=== PATIENT | male | born 1985 | race Caucasian/White ===

== ENCOUNTER 2021-06-14 07:44 | Emergency (ER) | payer MEDICAID, SELFPAY ==
[2021-06-14 07:49] VITALS: BP 96/56; PULSE 83; RESP 16; TEMP 36.3; O2SAT 95; BMI 21.7
--- NOTE | 2021-06-14 08:22 | ED_ITS ---
HPI - Alcohol General Chief Complaint: Psychiatric Symptoms Stated Complaint: seeking detox Time Seen by Provider: 06/14/21 08:18 Source: patient Mode of arrival: ambulatory Limitations: no limitations History of Present Illness HPI narrative: requesting opiate and heroin detox MD complaint: desires rehab Last drink: Hours (ago) (few) Chronic alcohol use: Yes Previous visits for alcohol intoxication: Yes Recent trauma: No Associated symptoms: denies other symptoms Treatments prior to arrival: none Related Data Allergies Allergy/AdvReac Type Severity Reaction Status Date / Time acetaminophen [From VICODIN] Allergy Unknown HIVES Unverified 07/29/20 18:08 ITCHY THROAT From VICODIN Allergy Unknown HIVES Uncoded 07/29/20 18:08 ITCHY THROAT Review of Systems Review of Systems: Constitutional : No Fever, No Chills ENT/Mouth : No sore throat, No Rhinorrhea Eyes: No Eye Pain, No Swelling, No Redness Cardiovascular : No Chest Pain, No SOB Respiratory : No Cough, No Sputum, No Wheezing Gastrointestinal : pos Nausea, No Vomiting, No Diarrhea Genitourinary : No Dysuria, No Urinary Frequency, No Hematuria, Musculoskeletal : No joint pain, No Myalgias, No Joint Swelling Skin : No Skin Lesions, No rash Neuro : No Weakness, No Numbness, No Dizziness, No Headache Psych : No Anxiety/Panic, No Depression Heme/Lymph: No Bruising, No Bleeding,No Lymphadenopathy Endocrine : No Polyuria, No Polydipsia All other systems reviewed and are negative [facility] Past Medical History Attestation statement: The following information was validated with the patient. Medical History Addiction to drug Social History Social History (Updated 06/14/21 @ 08:30 by Maria Del Rosario Orozco DO) Patient Tobacco Use Status: Current everyday Tobacco user Substance Use Type: Heroin Advance Directives: No Advance Directives Information Provided: No Physical Exam Vital Signs: Vital Signs: Last Vital Signs Temp 97.4 F 06/14/21 07:49 Pulse 83 06/14/21 07:49 Resp 16 06/14/21 07:49 BP 96/56 L 06/14/21 07:49 Pulse Ox 95 06/14/21 07:49 Body Mass Index 21.7 Appearance: Alert. Oriented X3. No acute distress. Eyes: Pupils equal, round and reactive to light. ENT: Pharynx normal. Neck: Normal inspection. Neck supple. CVS: Normal heart rate and rhythm. Pulses normal. Respiratory: No respiratory distress. Breath sounds normal. Abdomen: Soft and nontender. Skin: Skin warm and dry. Normal skin color. Normal skin turgor. Extremities: No lower extremity edema. No calf ttp Neuro: Oriented X 3. No motor deficit. No sensory deficit. Course Course Course Narrative: recovery coaches [place] [facility] today MDM - Alcohol MDM Narrative Medical decision making narrative: 35 yo male with ETOH and heroin abuse here with request for detox, no SI/HI, no trauma, no vomiting, will give zofran and librium, COVID swab and refer to the recovery coaches Lab Data Labs: Lab Results 06/14/21 06/14/21 Range/Units 08:40 11:54 Urine Opiates Screen POSITIVE H (Not Detect) Ur Barbiturates Screen Not Detected (Not Detect) Ur Phencyclidine Scrn Not Detected (Not Detect) Ur Amphetamines Screen Not Detected (Not Detect) U Benzodiazepines Scrn Not Detected (Not Detect) Urine Cocaine Screen POSITIVE H (Not Detect) U Marijuana (THC) Screen POSITIVE H (Not Detect) COVID-19 (NICHOLE) Negative (Negative) COVID-19 Clin Com See Note Discharge Plan Discharge Clinical Impression: Polysubstance abuse Patient Disposition: Home, Self-Care Instructions: Polysubstance Abuse (ED), Medical Clearance for Substance Abuse Treatment (ED) Additional Instructions: return to ED for any worsening symptoms or concerns please go to detox
[2021-06-14] MEDS: chlordiazePOXIDE HCl 25 MG CAPSULE PO (08:57)
[2021-06-14] MEDS: Ondansetron ODT 4 MG TAB.RAPDIS TRANSLINGU (08:57)
[2021-06-14 09:00] LABS: COVID-19 Test Negative (Negative)
--- NOTE | 2021-06-14 12:28 | MHC.CARE ---
Patient is 35 year-old, single, Telugu speaking, male who self-presented to [facility] ED seeking detox from alcohol and heroin. CARE Team met with patient, who was alert and oriented but seemed distressed and stated he was having withdrawal symptoms. Denied suicidal or homicidal ideation as well hallucinations or psychotic symptoms, ?I just want help bad.? Patient reported no history of suicide attempts or inpatient psychiatric hospitalizations. He is from [facility] and unknown to [facility]. At this time patient appears to be goal directed in getting treatment for his withdrawal symptom and not in need of psychiatric intervention.
[2021-06-14 12:38] LABS: Amphetamine Screen Urine Not Detected (Not Detect); Barbiturates, Urine Not Detected (Not Detect); Benzodiazepines Screen Urine Not Detected (Not Detect); Cannabinoid Screen Urine POSITIVE (Not Detect); Cocaine Screen Urine POSITIVE (Not Detect); Opiate Screen Urine POSITIVE (Not Detect); Phencyclidine Screen Urine Not Detected (Not Detect)
--- NOTE | 2021-06-14 12:58 | MHC.RECOVSUP ---
? Reason for consult:Continuity of care o Current location: [address] [place] [address] o Identified substance use concern: Heroin - Withdrawal - Seeking ATS (detox) - Support ? Intervention: o ATS bed search started/completed/in process o MAT started or to be started o Community resources provided o Harm reduction discussion ? Plan: o o Bed search in progress o Patient to follow up with [facility] after discharge ? Additional information: Pt. seeking detox, pt has a bed in [facility]
== END 2021-06-14 14:34 | disposition home or self-care (01) ==
PROVIDERS: Emergency Provider Emergency Medicine
DX: F11.10 Opioid abuse, uncomplicated (principal); Z71.51 Drug abuse counseling and surveillance of drug abuser; F17.200 Nicotine dependence, unspecified, uncomplicated; Z71.6 Tobacco abuse counseling; Z79.899 Other long term (current) drug therapy; Z20.822 Contact with and (suspected) exposure to COVID-19
CPT/HCPCS: 36415; 80307; 87635; 99283

== ENCOUNTER 2021-06-23 07:15 | Emergency (ER) | payer MEDICAID, SELFPAY ==
--- NOTE | ~2021-06-23 | CT_ITS ---
EXAMINATION: CT HEAD, NONCONTRAST CT FACIAL BONES, NONCONTRAST CLINICAL INFORMATION: Fall, trauma, pain COMPARISON: None TECHNIQUE: Contiguous axial imaging was performed from the skull base to vertex without intravenous administration of contrast. Axial CT of the facial bones is also performed without contrast. Additional 2-D coronal and sagittal reformatted images are generated on the CT workstation for both exams and uploaded to PACS. This CT examination was performed using dose optimization techniques as appropriate, variously including the following: *Automated exposure control *Adjustment of mA and/or kV according to patient size (this includes techniques or standardized protocols for targeted exams where dose is matched to indication/reason for exam; i.e. extremities or head) *Use of iterative reconstruction technique DLP: 713 mGy-cm (head) 571 mGy-cm (facial) FINDINGS: Head: There is no intracranial hemorrhage, hematoma, or extra-axial fluid collection. The ventricles are normal in size. There is no hydrocephalus, edema, or mass effect. The domingo-white matter differentiation appears symmetric. There is no visible acute territorial infarct or mass lesion. There is mild soft tissue swelling overlying the lower right forehead near the superior medial orbital rim. The calvarium appears intact. No pneumocephalus or orbital emphysema. The sinuses show mild mucosal thickening posterior right frontal sinus and anterior ethmoid air cells. There are no definite air-fluid levels. The middle ears and mastoids are well-aerated and clear. Facial: Images through lower face are repeated due to motion. The orbital rims and floors, zygomatic arches, pterygoid plates, nasal bones, and mandible are intact without fracture. There is scattered chronic dental disease with some dental caries and periapical lucencies. The globes are unremarkable. There is no retrobulbar or hematoma. No orbital emphysema. Probable mucosal thickening right frontal sinus. No definite air-fluid levels. CT/CT facial bones wo con IMPRESSION: 1. No acute intracranial abnormality. 2. Mild soft tissue swelling lower right forehead. Orbits unremarkable. No facial bone fracture.
--- NOTE | ~2021-06-23 | CT_ITS ---
EXAMINATION: CT CERVICAL SPINE WITHOUT CONTRAST CLINICAL INFORMATION: Fall, trauma, pain COMPARISON: CT head and facial bones 06/23/2021 TECHNIQUE: Multidetector volumetric CT imaging of the cervical spine is performed without contrast in the axial plane. Additional 2D reformatted coronal and sagittal images are generated on the CT workstation and uploaded to PACS. This CT examination was performed using dose optimization techniques as appropriate, variously including the following: *Automated exposure control *Adjustment of mA and/or kV according to patient size (this includes techniques or standardized protocols for targeted exams where dose is matched to indication/reason for exam; i.e. extremities or head) *Use of iterative reconstruction technique DLP: 713 mGy-cm FINDINGS: There is no vertebral compression fracture, fracture line, spondylolisthesis, or prevertebral soft tissue swelling. The craniocervical junction appears normal. The odontoid appears intact. There is normal cervical lordosis. There are no significant degenerative changes. There is no apical pneumothorax. CT/CT cervical spine wo con IMPRESSION: No acute bony abnormality or prevertebral soft tissue swelling.
[2021-06-23 07:19] VITALS: BP 124/75; PULSE 71; RESP 16; TEMP 36.6; O2SAT 99
[2021-06-23 07:20] VITALS: BP 124/75; PULSE 72; RESP 18; TEMP 36.9; O2SAT 99; BMI 19.5
--- NOTE | 2021-06-23 07:29 | PC.NURSE ---
THIS RN ATTEMPTING TO CLEAN PT LACS, PT VERY RESISTANT, PUSHING THIS RNS HANDS AWAY WHEN TRYING TO APPLY SALINE SOAKED GAUZE. PT APPEARS TO HAVE GRAVEL OR DIRT IN FOREHEAD, PT EDUCATED ABOUT NEED TO CLEAN TO PREVENT POSSIBILITY OF INFECTION. PT CONTINUES TO REFUSE CLEANING ALL OPEN WOUNDS.
--- NOTE | 2021-06-23 08:32 | PC.NURSE ---
pt refused blood draw at 0830. RN and PA aware.
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
--- NOTE | 2021-06-23 15:04 | PC.NURSE ---
pt refusing to talk w recovery team and provider, requiring hard tactile stimuli to answer this rn. pt yelling at this rn. pt educated about the fact he has refused all ordered lab work as well as imaging, yet is seeking detox services, which require lab results before placement. pt now agreeable to lab work. pct aware
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
--- NOTE | 2021-06-23 16:20 | MHC.RECOVRN ---
Pts labs not yet resulted. Bedsearch deferred to CARE Team and Chief Of Surgery.
[2021-06-23 16:31] LABS: Basophils Absolute Auto 0.1 X10*3/uL (0.0-0.2); Basophils Percent Auto 0.6 % (0-2); Eosinophils Absolute Auto 0.1 X10*3/uL (0.0-0.4); Eosinophils Percent Auto 1.2 % (0-4); Hematocrit 39.8 % (42-52); Hemoglobin 12.7 g/dl (14.0-18.0); Imm Gran Abs Auto 0.03 X10*3/uL (0.00-0.03); Imm Gran Pct Auto 0.3 % (0.0-0.4); Lymphocytes Percent Auto 10.9 % (20-40); MANUAL DIFF FLAG NO; Mean Corpuscular HGB Conc 31.9 g/dl (31.0-36.0); Mean Corpuscular Hemoglobin 29.1 pg (27.0-33.0); Mean Corpuscular Volume 91.1 fL (80-98); Mean Platelet Volume 8.9 fL (9.4-12.4); Monocytes Absolute Auto 0.5 X10*3/uL (0.1-1.2); Monocytes Percent Auto 5.2 % (2-11); Neutrophils Absolute Auto 7.4 X10*3/uL (2.0-8.3); Neutrophils Percent Auto 81.8 % (45-73); Platelet Count 447 X10*3/uL (160-400); Red Blood Count 4.37 X10*6/uL (4.60-5.80); Red Cell Distribution Width 13.9 % (11.0-16.0)
[2021-06-23 16:59] LABS: Ethanol < 10 mg/dL
[2021-06-23 17:01] LABS: Alanine Aminotransferase 21 U/L (0-40); Albumin Level 4.1 g/dL (3.5-5.0); Alkaline Phosphatase 97 U/L (39-117); Anion Gap 14 (12-20); Aspartate Amino Transferase 31 U/L (5-37); Bilirubin Direct 0.3 mg/dL (0.0-0.5); Bilirubin Total 0.7 mg/dL (0.0-1.0); Blood Urea Nitrogen 14 mg/dL (9-16); Calcium 9.3 mg/dL (8.4-10.2); Carbon Dioxide 23 mmol/L (22-29); Chloride 110 mmol/L (96-108); Creatinine Clr Calc Pharmacy 95.4; Estimated Glomerular Filt Rate > 60; Glucose Random 88 mg/dL (60-115); Magnesium 2.3 mg/dL (1.6-2.6); Potassium 3.9 mmol/L (3.3-5.1); Sodium 143 mmol/L (135-145); Total Protein 7.5 g/dL (6.5-8.0)
--- NOTE | 2021-06-23 18:35 | MHC.RECOVSUP ---
? Reason for consult Recovery Support o Current location: ED18H o Identified substance use concern: Heroin - Overdose - Withdrawal - Seeking ATS (detox) - Support ? Intervention: o Community resources provided o Harm reduction discussion ? Plan: <del>o</del> <del>Referral</del> <del>to</del> <del>[facility]</del> <del>o</del> <del>Bed</del> <del>search</del> <del>in</del> <del>progress</del> <del>to</del> <del>o</del> <del>Follow</del> <del>up</del> <del>tomorrow</del> <del>o</del> <del>Patient</del> <del>awaiting</del> <del>crisis</del> <del>evaluation</del> o Patient to follow up with [facility] after discharge ? Additional information: Patient seeking detox unfortunately No bed theres no Beds anywhere.. I supplied patient with resources to follow up in the Morning..
--- NOTE | 2021-06-23 18:49 | MHC.RECOVSUP ---
? Reason for consult Recovery Support o Current location: ED18H o Identified substance use concern: Heroin - Overdose - Withdrawal - Seeking ATS (detox) - Support ? Intervention: o Community resources provided o Harm reduction discussion ? Plan: <del>o</del> <del>Referral</del> <del>to</del> <del>[facility]</del> <del>o</del> <del>Bed</del> <del>search</del> <del>in</del> <del>progress</del> <del>to</del> <del>o</del> <del>Follow</del> <del>up</del> <del>tomorrow</del> <del>o</del> <del>Patient</del> <del>awaiting</del> <del>crisis</del> <del>evaluation</del> o Patient to follow up with [facility] after discharge ? Additional information: Patient seeking detox unfortunately No Beds anywhere.. I supplied patient with resources to follow up in the Morning..
--- NOTE | 2021-06-23 21:29 | PC.NURSE ---
pt ready for discharge, refused to sit up. pt did allow vital signs. when pt told he would be discharged, he stated i'm going to kill myself. MD spoke to patient, told him he was discharged and he will be provided with a list of centers to call. pt told the MD i want to kill myself. pt moved to 6h by security, assisted with foreign exchange clerk.
[2021-06-23 21:33] VITALS: BP 124/75; PULSE 80; RESP 16; O2SAT 99
--- NOTE | 2021-06-23 21:55 | PC.NURSE ---
pt narcan has not been given due to pt made a s1 statement and now is a pt that is going to the pod when the bed is ready. pt is resting quietly in hospital pod attire. plan is to be seen by [facility] and not to be discharged at this time.
[2021-06-23] MEDS: LORazepam 1 MG TABLET 2 MG PO (23:33)
[2021-06-23] MEDS: Ondansetron ODT 4 MG TAB.RAPDIS TRANSLINGU (23:34)
[2021-06-23 23:59] LABS: Glucose Urine UA NEG (NEG); Leukocyte Esterase Urine NEG (NEG); Nitrite Urine NEG (NEG); Specific Gravity - Urine >= 1.030 (1.005-1.025); Urine Blood NEG (NEG); Urine Ketones 15 MG/DL (NEG); Urine Protein NEG (NEG-TRACE)
[2021-06-24] LABS: Appearance Urine CLEAR; Color Urine YELLOW
[2021-06-24 00:11] LABS: COVID-19 Test Negative (Negative)
[2021-06-24 00:36] LABS: Amphetamine Screen Urine Not Detected (Not Detect); Barbiturates, Urine Not Detected (Not Detect); Benzodiazepines Screen Urine Not Detected (Not Detect); Cannabinoid Screen Urine POSITIVE (Not Detect); Cocaine Screen Urine POSITIVE (Not Detect); Fentanyl, urine POSITIVE (Not Detect); Opiate Screen Urine POSITIVE (Not Detect); Phencyclidine Screen Urine Not Detected (Not Detect)
--- NOTE | 2021-06-24 00:44 | PC.NURSE ---
Patient just got transferred from main ED after making suicidal statement, patient had one episode of vomiting, Zofran 4 mg and Ativan 2 mg administered, patient currently resting calmly, Christina referral completed via telephone with Suzanna BOCANEGRA overnight air quality instrument specialist, no clinician available, will continue to monitor.
--- NOTE | 2021-06-24 05:51 | PC.NURSE ---
Patient slept through the night, no distress observed/reported, patient is not on any medication at this time, asymptomatic of withdrawal, behavior appropriate, appearance dishevelled, med compliant, appetite good, elimination intact, patient is awaiting BHN evaluation in the morning, will continue to monitor.
--- NOTE | 2021-06-24 07:18 | PC.NURSE ---
patient appears in no distress at present resting with even unlabored breaths
[2021-06-24 08:45] VITALS: RESP 16
[2021-06-24 09:39] VITALS: BP 114/63; PULSE 91; RESP 16; TEMP 36.8; O2SAT 100
[2021-06-24 09:55] VITALS: BP 114/63; PULSE 88
[2021-06-24] MEDS: Ondansetron ODT 4 MG TAB.RAPDIS TRANSLINGU (09:55)
[2021-06-24] MEDS: cloNIDine HCL 0.1 MG TABLET PO (09:55)
[2021-06-24] MEDS: Cyclobenzaprine HCl 10 MG TABLET PO (09:57)
[2021-06-24] MEDS: Buprenorphine/Naloxone 4/1 mg FILM 1 FILM SUBLINGUAL ×2 (10:23→23:49)
[2021-06-24 16:50] VITALS: BP 114/64; PULSE 85; RESP 18; O2SAT 100
[2021-06-25 06:56] VITALS: BP 146/93; PULSE 88; TEMP 37.1; O2SAT 100
--- NOTE | 2021-06-25 07:20 | PC.NURSE ---
patient appears to remain at rest at present appears in no distress respirations are even and unlabored
[2021-06-25] MEDS: Buprenorphine/Naloxone 8/2 mg FILM 1 FILM SUBLINGUAL (10:09)
[2021-06-25] MEDS: Ibuprofen 600 MG TABLET PO (18:17)
[2021-06-25] MEDS: hydrOXYzine HCL 25 MG TABLET PO (18:17)
[2021-06-25] MEDS: Nicotine Polacrilex 2 MG GUM 4 MG BUCCAL (18:18)
[2021-06-26 03:43] VITALS: BP 141/100; PULSE 67; TEMP 36
--- NOTE | 2021-06-26 06:16 | PC.NURSE ---
Patient slept through the night, patient got revaluated by N, disposition is detox at [facility] at 9am and patient has to arrange his own transportation, VSS, no distress observed/reported, behavior appropriate, will continue to monitor.
[2021-06-26] MEDS: hydrOXYzine HCL 25 MG TABLET PO (07:02)
[2021-06-26] MEDS: Ibuprofen 600 MG TABLET PO (07:02)
[2021-06-26] MEDS: Cyclobenzaprine HCl 10 MG TABLET PO (07:50)
[2021-06-26] MEDS: Buprenorphine/Naloxone 8/2 mg FILM 1 FILM SUBLINGUAL (07:59)
== END 2021-06-26 08:01 | disposition home or self-care (01) ==
PROVIDERS: Physician Assistant; Emergency Provider Emergency Medicine Emergency Medical Services
DX: F19.10 Other psychoactive substance abuse, uncomplicated (principal); F14.10 Cocaine abuse, uncomplicated; R53.83 Other fatigue; R51.9 Headache, unspecified; Z20.822 Contact with and (suspected) exposure to COVID-19; S00.83XA Contusion of other part of head, initial encounter; S00.31XA Abrasion of nose, initial encounter; S00.81XA Abrasion of other part of head, initial encounter; V18.0XXA Pedal cycle driver injured in noncollision transport accident in nontraffic accident, initial encounter; Y93.55 Activity, bike riding; Y92.414 Local residential or business street as the place of occurrence of the external cause; Y99.9 Unspecified external cause status
CPT/HCPCS: 36415; 70450; 70486; 72125; 80048; 80076; 80307; 81003; 82077; 83735; 85025; 87635; 99285

== ENCOUNTER 2021-07-02 22:17 | Emergency (ER) | payer MEDICAID, SELFPAY ==
[2021-07-02 22:28] VITALS: BP 107/72; PULSE 83; RESP 16; TEMP 37.1; O2SAT 98; BMI 21.1
--- NOTE | 2021-07-03 00:17 | PC.NURSE ---
pt exchange underwriting consultant with security. pt refusing labs, ua collected. Provider in to assess pt. pt given a sandwich and drink and is resting comfortable.
--- NOTE | 2021-07-03 00:20 | ED.PSYCH ---
HPI - Psych General Chief Complaint: Psychiatric Symptoms Stated Complaint: substance abuse Time Seen by Provider: 07/03/21 00:14 Source: patient Mode of arrival: ambulatory Limitations: no limitations History of Present Illness HPI Narrative: Patient comes emergency room complaining of suicidal ideation. Patient states that he wants to hang himself. Patient states that this morning he used 5-6 tablets of benzodiazepines with intention of hurting himself. Patient seeking detox from heroin and benzos. Related Data Allergies Allergy/AdvReac Type Severity Reaction Status Date / Time acetaminophen [From VICODIN] Allergy Unknown HIVES Unverified 07/29/20 18:08 ITCHY THROAT From VICODIN Allergy Unknown HIVES Uncoded 07/29/20 18:08 ITCHY THROAT Review of Systems Review of Systems: Constitutional : No Weight loss, No Fever, No Chills, No Night Sweats, No Fatigue, No Malaise ENT/Mouth : No Hearing loss, No Ear Pain, No Nasal Congestion, No Sinus Pain, No Hoarseness, No sore throat, No Rhinorrhea, No Swallowing Difficulty Eyes: No Eye Pain, No Swelling, No Redness, No Foreign Body, No Discharge, No Vision Changes Cardiovascular : No Chest Pain, No SOB, No Dyspnea on Exertion, No Orthopnea, No Edema, No Palpitations Respiratory : No Cough, No Sputum, No Wheezing, No Smoke Exposure, No Dyspnea Gastrointestinal : No Nausea, No Vomiting, No Diarrhea, No Constipation, No abdominal Pain, No Hematochezia, No Melena Genitourinary : no irregular bleeding, No Dysuria, No Urinary Frequency, No Hematuria, No Urinary Incontinence, No Urgency, No Flank Pain, No Urinary Flow Changes, No Hesitancy Musculoskeletal : No joint pain, No Myalgias, No Joint Swelling Skin : No Skin Lesions, No rash Neuro : No Weakness, No Numbness, No Paresthesias, No Loss of Consciousness, No Dizziness, No Headache Psych : No anxiety, complaining of depression and suicidal ideation and attempt, no homicidal ideation Heme/Lymph: No Bruising, No Bleeding,No Lymphadenopathy Endocrine : No Polyuria, No Polydipsia, No Temperature Intolerance PMFSH Past Medical History Medical History Addiction to drug Suicidal ideations Social History Social History (Updated 06/14/21 @ 08:30 by MARK Thomas Alcohol intake: unknown Patient Tobacco Use Status: Current everyday Tobacco user Substance Use Type: Crack/Cocaine, Heroin and Marijuana Advance Directives: No Advance Directives Information Provided: Yes Physical Exam Vital Signs: Vital Signs: Last Vital Signs Temp 98.7 F 07/02/21 22:28 Pulse 83 07/02/21 22:28 Resp 16 07/02/21 22:28 BP 107/72 07/02/21 22:28 Pulse Ox 98 07/02/21 22:28 Body Mass Index 21.1 Const: Other: Appearance: Alert. Oriented X3. No acute distress. Eyes: Pupils equal, round and reactive to light. ENT: Pharynx normal. Neck: Normal inspection. Neck supple. No lymph nodes noted. No crepitus CVS: Normal heart rate and rhythm. Pulses normal. Normal S1 and S2 Respiratory: No respiratory distress. Breath sounds normal. No Wheezing. No rales Abdomen: Soft and nontender. No rigidity. No distention. good BS x4 Skin: Skin warm and dry. Normal skin color. Normal skin turgor. Extremities: No lower extremity edema. No Lacerations. No Rash Neuro: Oriented X 3. Cranial nerves 2-12 grossly intact. No motor deficit. No sensory deficit. Moving all extermities. No slurred speech. MDM - Psych MDM Narrative Medical decision making narrative: Patient is alert,, cooperative, does not want to talk much. Patient's vitals are stable. Patient will be seen by [facility]. Physician of supervision started at 00:20 Discharge Plan Discharge Clinical Impression: Suicidal ideation
[2021-07-03 00:23] VITALS: BP 112/68; PULSE 69; RESP 18; TEMP 36.6; O2SAT 100
[2021-07-03 00:49] LABS: Glucose Urine UA NEG (NEG); Leukocyte Esterase Urine NEG (NEG); Nitrite Urine NEG (NEG); Specific Gravity - Urine >= 1.030 (1.005-1.025); Urine Blood NEG (NEG); Urine Ketones NEG (NEG); Urine Protein NEG (NEG-TRACE)
[2021-07-03 00:50] LABS: Appearance Urine CLEAR; Color Urine YELLOW
[2021-07-03 01:12] LABS: Amphetamine Screen Urine Not Detected (Not Detect); Barbiturates, Urine Not Detected (Not Detect); Benzodiazepines Screen Urine POSITIVE (Not Detect); Cannabinoid Screen Urine Not Detected (Not Detect); Cocaine Screen Urine POSITIVE (Not Detect); Fentanyl, urine POSITIVE (Not Detect); Opiate Screen Urine POSITIVE (Not Detect); Phencyclidine Screen Urine Not Detected (Not Detect)
--- NOTE | 2021-07-03 01:38 | PC.NURSE ---
ANGYN paper work faxed over.
[2021-07-03 02:27] LABS: COVID-19 Test Negative (Negative); IDNOW Serial# 9DD0AD1C
[2021-07-03 08:31] VITALS: BP 117/58; PULSE 70; RESP 18; TEMP 36.6; O2SAT 100
--- NOTE | 2021-07-03 12:55 | PC.NURSE ---
patient alert and oriented, asking for a snack. sandwich and crackers given to the patient as well as a beverage. care team at bedside. bhn alerted of his need to be seen.
--- NOTE | 2021-07-03 13:00 | PC.NURSE ---
patient informed CARE team that he takes suboxone and is requesting this medication be given to him while he is here. per pt he receives this medication from [facility] on [address] in [place] and takes 60mg.
[2021-07-03] MEDS: Buprenorphine/Naloxone 8/2 mg FILM 2 FILM BUCCAL (13:18)
--- NOTE | 2021-07-03 13:19 | PC.NURSE ---
suboxone dose verified with [facility] pharmacy and med rec completed and physician certified anesthesiologist assistant signed off. patient received his first dose of suboxone here.
--- NOTE | 2021-07-03 13:32 | PC.NURSE ---
BHN at bedside to evaluate patient
--- NOTE | 2021-07-03 13:42 | MHC.CARE ---
CARE Team spoke briefly to patient in [facility], stated he might be interested in detox today--said he wants detox OR crisis. Call to [facility] detox, there is one bed at [facility] and two in [place]. Fax paperwork to [phone]. Patient's referral sent via paper fax not received by [facility] Crisis last night. RN sent smart sheet today. Message from Vanessa at [facility] Intake at 1:15 clinician is enroute to see patient now, will give the above information.
--- NOTE | 2021-07-03 17:31 | PC.NURSE ---
pt moved into [facility] for comfort
[2021-07-03 17:58] VITALS: BP 112/71; PULSE 65; RESP 16; TEMP 36.8; O2SAT 100
[2021-07-04 02:26] VITALS: BP 121/78; PULSE 62; RESP 16; TEMP 36.4; O2SAT 100
--- NOTE | 2021-07-04 06:29 | PC.NURSE ---
Patient slept through the night, no distress observed/reported, VSS, behavior appropriate, disposition per N is detox bed search, med compliant, will continue to monitor.
[2021-07-04] MEDS: Buprenorphine/Naloxone 8/2 mg FILM 2 FILM BUCCAL (08:57)
--- NOTE | 2021-07-04 09:34 | MHC.RECOVRN ---
Met with pt to discuss desire for ATS. Pt reports heroin use, 2 bundles daily, IN; clonazepam, 2 mg daily, PO; crack cocaine daily. Pt currently on Suboxone, received dose yesterday with good effect. Pts referral sent to [facility] ATS intake as it was noted they had available beds.
--- NOTE | 2021-07-04 11:39 | MHC.RECOVSUP ---
? Reason for consult:Continuity of care o Current location:[place] o Identified substance use concern:Heroin,cocaine, benzodiazepine - Seeking ATS (detox) - Support ? Intervention: o ATS bed search started/completed/in process o Community resources provided o Harm reduction discussion ? Plan: o Referral to CCC o Bed search in progress to o Patient awaiting crisis evaluation o Patient to follow up with HF after discharge ? Additional information:PT.seeking detox and we have a bed search going on
--- NOTE | 2021-07-04 13:47 | MHC.RECOVSUP ---
? Reason for consult:Continuity of care o Current location: [facility] o Identified substance use concern: Polysubstance - Withdrawal - Seeking ATS (detox) - Support ? Intervention: o Community resources provided o Harm reduction discussion ? Plan: o Referral to CCC o Bed search in progress to o Patient awaiting crisis evaluation o Patient to follow up with [facility] after discharge ? Additional information:There is no bed availibility today.
[2021-07-04 14:38] VITALS: BP 136/77; PULSE 75; RESP 16; TEMP 36.4; O2SAT 100
== END 2021-07-04 15:48 | disposition home or self-care (01) ==
PROVIDERS: Emergency Provider Emergency Medicine
DX: R45.851 Suicidal ideations (principal); F19.10 Other psychoactive substance abuse, uncomplicated; F11.20 Opioid dependence, uncomplicated; F17.210 Nicotine dependence, cigarettes, uncomplicated; Z20.822 Contact with and (suspected) exposure to COVID-19
CPT/HCPCS: 36415; 80307; 81003; 87635; 99285

== ENCOUNTER 2021-07-12 12:59 | Inpatient (IN) | payer OTHER, SELFPAY ==
--- NOTE | 2021-07-12 13:05 | ED.ALCOHOL ---
HPI - Alcohol General Chief Complaint: ETOH/Substance Use Stated Complaint: withdrawal Time Seen by Provider: 07/12/21 13:05 Source: patient, EMS and old records reviewed Mode of arrival: EMS Limitations: no limitations History of Present Illness MD complaint: desires rehab Last drink: Hours (ago) Chronic alcohol use: Yes Previous visits for alcohol intoxication: Yes Recent trauma: No Associated symptoms: denies other symptoms Treatments prior to arrival: none Related Data Home Medications Medication Instructions Recorded Confirmed buprenorphine 8 mg-naloxone 2 mg 2 film BUCCAL DAILY 07/03/21 07/03/21 sublingual film (Suboxone) Allergies Allergy/AdvReac Type Severity Reaction Status Date / Time acetaminophen [From VICODIN] Allergy Unknown HIVES Verified 07/03/21 13:13 ITCHY THROAT From VICODIN Allergy Unknown HIVES Uncoded 07/29/20 18:08 ITCHY THROAT Review of Systems Review of Systems: Constitutional : No Fever, No Chills ENT/Mouth : No Ear Pain, No Nasal Congestion, No sore throat Eyes: No Eye Pain, No Swelling, No Redness Cardiovascular : No Chest Pain, No SOB Respiratory : No Cough, No Sputum, No Dyspnea Gastrointestinal : No Nausea, No Vomiting, No Diarrhea, No Hematochezia, No Melena Genitourinary : No Dysuria, No Urinary Frequency, No Hematuria Musculoskeletal : No Myalgias Skin : No Skin Lesions, No rash Neuro : No Weakness, No Numbness, No Paresthesias, No Dizziness, No Headache Psych : no Anxiety, no Depression, no SI/HI Heme/Lymph: No Lymphadenopathy Endocrine : No Polyuria, No Polydipsia All other systems reviewed and are negative PMFSH Past Medical History Attestation statement: The following information was validated with the patient. Medical History Addiction to drug Suicidal ideations Social History Social History Alcohol intake: unknown Patient Tobacco Use Status: Current everyday Tobacco user Substance Use Type: Crack/Cocaine, Heroin and Marijuana Physical Exam Vital Signs: Vital Signs: Last Vital Signs Resp 18 07/12/21 13:36 Body Mass Index 20.5 Appearance: Alert. Oriented X3. No acute distress. Appears sleepy Eyes: Pupils equal, round and reactive to light. ENT: Pharynx normal. Neck: Normal inspection. Neck supple. CVS: Normal heart rate and rhythm. Pulses normal. Respiratory: No respiratory distress. Breath sounds normal. Abdomen: Soft and nontender. Skin: Skin warm and dry. Normal skin color. Normal skin turgor. Extremities: No lower extremity edema. No calf ttp Neuro: Oriented X 3. No motor deficit. No sensory deficit. CN 2-12 intact Course Course Course Narrative: now states SI to the RN - will place in pod and refer to BHN, this was likely after he was notified that no detox beds are available Physician observation started at 214pm Patient placed in physician observation because the patient needed more time for BHN evaluation given his SI statements. At the time observation was started the patient's vitals were stable, patient is alert and oriented, Neuro: nonfocal, CV RRR, Lungs clear signed out pending BHN input MDM - Alcohol MDM Narrative Medical decision making narrative: 35 yo male with hx of substance abuse here with c/o wanting detox for substance abuse, he denies medical complaints or SI to me. The recovery coaches are here and ready to speak to the patient. Dispo per results and findings. Lab Data Labs: Lab Results 07/12/21 Range/Units 13:21 COVID-19 ([facility]) Negative (Negative) COVID-19 Clin Com See Note Discharge Plan Discharge Clinical Impression: Polysubstance abuse Instructions: Polysubstance Abuse (ED) Prescriptions: No Action buprenorphine-naloxone [Suboxone] 8-2 mg Film 2 film BUCCAL DAILY RF: 0
[2021-07-12 13:36] VITALS: BP 118/70; PULSE 80; RESP 18; O2SAT 100; BMI 20.5
[2021-07-12 13:42] LABS: COVID-19 Test Negative (Negative)
--- NOTE | 2021-07-12 14:16 | PC.NURSE ---
pt agreeing to currency exchange specialist. belongings in decon. pt seeking detox following ETOH and Heroin use last night. refusing labs at this time. sending him over to the the POD
[2021-07-12 14:24] LABS: Amphetamine Screen Urine Not Detected (Not Detect); Barbiturates, Urine Not Detected (Not Detect); Benzodiazepines Screen Urine Not Detected (Not Detect); Cocaine Screen Urine POSITIVE (Not Detect); Fentanyl, urine POSITIVE (Not Detect); Opiate Screen Urine POSITIVE (Not Detect); Phencyclidine Screen Urine Not Detected (Not Detect)
[2021-07-12 14:41] LABS: Cannabinoid Screen Urine POSITIVE (Not Detect)
--- NOTE | 2021-07-12 16:20 | PC.NURSE ---
Completed Crisis Referral form and sent to [facility]
--- NOTE | 2021-07-12 18:56 | MHC.RECOVSUP ---
? Reason for consult Recovery Support o Current location: [facility] o Identified substance use concern: Heroin - Withdrawal - Seeking ATS (detox) - Support ? Intervention: o MAT started to be started in the ED. 16mg o Community resources provided o Harm reduction discussion ? Plan: o Referral to CCC o Follow up tomorrow o Patient to follow up with HF after discharge ? Additional information: Patient came to the ed looking for help with withdrawal. Patient is being started on MAT in the ed. Patient was given the information to the [facility] and was instrucked to go to the [facility] on open hours so that he can continue MAT.. Patient was also given [facility] information and was advised to follow up with them for assistance in his recovery.
[2021-07-12] MEDS: LORazepam 1 MG TABLET 2 MG PO (19:52)
--- NOTE | 2021-07-13 00:37 | MHC.CARE ---
[facility] unable to send a clinician for eval. CARE team contacted [facility] mechanics supervisor re: taking over the case. CARE team attempted to meet with pt to complete a risk assessment. Pt appeared to be asleep and not responding to this appeals writer, however was actively moving his hands and feet under the blanket. CARE team will revisit this in the morning. Recovery team will also follow up.
--- NOTE | 2021-07-13 06:46 | PC.NURSE ---
Patient slept through the night, no distress observed/reported, asymptomatic of withdrawal, VSS, care team and asset recovery specialist will work for disposition, VSS, will continue to monitor.
--- NOTE | 2021-07-13 07:27 | PC.NURSE ---
patient appears to remain asleep at present, respirations appear even and unlabored. patient appears in no distress.
[2021-07-13] MEDS: Buprenorphine/Naloxone 8/2 mg FILM 1 FILM SUBLINGUAL (09:55)
--- NOTE | 2021-07-13 10:37 | MHC.RECOVRN ---
T/w briefly met with pt to f/u regarding desire for ATS. Pt received Suboxone, 8 mg, at 0955 and denies effects as of 1020. Pt reporting withdrawal symptoms and would like to continue bedsearch. Case discussed with CARE Team as well as [facility] Specialist, Don, who will continue bedsearch.
[2021-07-13 12:15] VITALS: PULSE 75
[2021-07-13] MEDS: Buprenorphine/Naloxone 4/1 mg FILM 1 FILM SUBLINGUAL (12:32)
[2021-07-13 14:00] VITALS: BP 125/88; PULSE 75; RESP 17; TEMP 36.8; O2SAT 100
--- NOTE | 2021-07-13 14:30 | PC.NURSE ---
patient sleeping, will continue to monitor
--- NOTE | 2021-07-13 15:15 | ECG_ITS ---
Test Reason : MED CLEARANCE Blood Pressure : / mmHG Vent. Rate : 079 BPM Atrial Rate : 079 BPM P-R Int : 130 ms QRS Dur : 096 ms QT Int : 400 ms P-R-T Axes : 074 -38 047 degrees QTc Int : 458 ms Normal sinus rhythm Left axis deviation Abnormal ECG No previous ECGs available Referred By: Malena Velazquez Electronically Signed By:KETURAH NULL
--- NOTE | 2021-07-13 15:28 | MHC.CARE ---
Patient assessed by CARE Team to need inpatient psychiatric care, providers updated, auth obtained, section 12A in chart.
--- NOTE | 2021-07-13 17:45 | PC.NURSE ---
pt allowed labs to be drawn, vitals obtained, cows/ciwa performed, patient is to go to [facility]3 at some point later.
[2021-07-13 17:53] LABS: Ethanol < 10 mg/dL
[2021-07-13 17:54] LABS: Anion Gap 11 (12-20); Blood Urea Nitrogen 15 mg/dL (9-16); Calcium 8.5 mg/dL (8.4-10.2); Carbon Dioxide 25 mmol/L (22-29); Chloride 106 mmol/L (96-108); Creatinine Clr Calc Pharmacy 106.3; Estimated Glomerular Filt Rate > 60; Glucose Random 81 mg/dL (60-115); Potassium 3.2 mmol/L (3.3-5.1); Sodium 139 mmol/L (135-145)
[2021-07-13 19:13] VITALS: BP 104/56; PULSE 74; RESP 16; TEMP 36.9; O2SAT 96
[2021-07-13 20:25] VITALS: BP 133/80; PULSE 69
[2021-07-13] MEDS: Baclofen 10 MG TABLET 5 MG PO (20:25)
[2021-07-13] MEDS: cloNIDine HCL 0.1 MG TABLET PO (20:25)
[2021-07-13] MEDS: LORazepam 1 MG TABLET 2 MG PO (20:26)
[2021-07-13 20:27] VITALS: BP 133/80; PULSE 69; TEMP 37; O2SAT 92
[2021-07-14 01:18] VITALS: RESP 18
--- NOTE | 2021-07-14 01:28 | PC.ADMIT ---
07/13/21-this is the first M5 admission for this 35 year old male with documented dx: MDD, OPIATE USE D/O SEVERE. legal: CV. patient was referred to [facility] by the CARE team from the [facility]. Patients admission was done with patient lying in bed as he reports experiencing w/d and fatigue. Reports relapsing on drugs one month ago after spending 7 months at a sober living facility called [facility]. Reports recent use and increase in so was an si attempt. ''I need it to end'' Patient was started on suboxone and had received 2 doses prior to admission assessment. Pt is experiencing diaphoresis, some mild anxiety, body cramping but was able to participate in assessment. Patientt is reporting diarrhea but no nausea or vomiting and has been eating large amounts of food and taking in fluids. In addition to sustance use which includes opiates, cocaine, fentanyl and marijuana patient also reports regular alcohol in take, drinking 3-4 x week and drinking to intoxication. Reports increase in depression, presents as disheveled and states sleep has been poor due to use and being homeless. Denies any significant medical issues and does not have a PCP.
[2021-07-14 05:53] VITALS: BP 108/57; PULSE 65; TEMP 36.8; O2SAT 100
[2021-07-14] MEDS: LORazepam 1 MG TABLET 2 MG PO ×2 (05:53→19:58)
[2021-07-14] MEDS: Baclofen 10 MG TABLET 5 MG PO ×2 (05:53→19:58)
[2021-07-14 08:00] VITALS: BP 104/58; PULSE 67; RESP 16; TEMP 36.7; O2SAT 99
[2021-07-14 08:05] VITALS: BP 104/58; PULSE 67; RESP 16; TEMP 36.7; O2SAT 99
[2021-07-14 09:21] LABS: Thyroid Stimulating Hormone 0.16 uIU/mL (0.32-4.0)
[2021-07-14 10:38] LABS: Folate 14.2 ng/mL (> or = 4.0); Vitamin B12 310 pg/mL (200-900)
[2021-07-14] MEDS: Buprenorphine/Naloxone 8/2 mg FILM 2 FILM SUBLINGUAL (10:51)
[2021-07-14 12:51] VITALS: BP 123/61; PULSE 77
[2021-07-14] MEDS: cloNIDine HCL 0.1 MG TABLET PO (12:51)
[2021-07-14 13:22] VITALS: BMI 20.5
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
--- NOTE | 2021-07-14 13:27 | MHC.CLN ---
RE: CONSULT UNABLE TO OBTAIN UBW RANGE NSG REPORTED WT LOSS R/T HOMELESSNESS AND DRUG ABUSE/RELAPSE POOR PO INFORMATION ASSURANCE ANALYST; NSG REPORTS PT EATING LARGE AMOUNTS OF FOOD IN ER DIET RX: REGULAR-APPROPRIATE WILL ADD ENSURE BID TO INCREASE KCALS SUPPLEMENT TO PROVIDE 700KCALS, 40G PROTEIN CAN D/C IF PO REMAINS CONSISTENTLY >75% MONITOR PO INTAKE CLOSELY SEE ALSO CLINICAL NUTRITION ASSESSMENT
[2021-07-14 19:50] VITALS: BP 131/79; PULSE 98; TEMP 36.7; O2SAT 99
[2021-07-14] MEDS: Ibuprofen 600 MG TABLET PO (19:57)
[2021-07-14] MEDS: hydrOXYzine HCL 25 MG TABLET 50 MG PO (19:58)
[2021-07-15 06:00] VITALS: BP 116/59; PULSE 80; RESP 20; TEMP 36.3; O2SAT 96
[2021-07-15] MEDS: hydrOXYzine HCL 25 MG TABLET 50 MG PO ×2 (08:14→16:29)
[2021-07-15] MEDS: Magnesium Hydrox/Alum Hydrox 30 ML ORAL.SUSP PO (08:14)
[2021-07-15] MEDS: Buprenorphine/Naloxone 8/2 mg FILM 2 FILM SUBLINGUAL (08:14)
[2021-07-15] MEDS: LORazepam 1 MG TABLET 2 MG PO ×3 (08:14→20:38)
[2021-07-15] MEDS: Nicotine Polacrilex 2 MG GUM 4 MG BUCCAL (08:14)
[2021-07-15 12:30] VITALS: BP 125/83; PULSE 97; RESP 20; TEMP 36.7; O2SAT 98
--- NOTE | 2021-07-15 12:54 | HO.PSYCHPN ---
Subjective Subjective Date of Service: 07/15/21 Reason For Visit: SI Interim History: pt up and out of bed a bit today, but does look tired or sedated. states he wants to discharge from the hospital today. reviews Hx including two recent overdose attempts, serial presentations to ED this month asking for help. pt is noted to be homeless. states his plan is to go to his father's house, says his father has OKed it. MD encourages pt to sign 3-day notice but insists with recent Hx MD feels he is highly likely to return to use as soon as he leaves the hospital and will likely overdose either intentionally or not. pt states he is no longer suicidal and is not craving drugs. states he will not use or kill himself. asks if there is anyone else he can discuss this with and is referred to unit mgr john. Mental Status Exam Mental Status Exam Narrative: dressed in hospital edy. disheveled. no PMA/PMR. cooperative with interview. speech soft, nml in rate, amount. decreased prosody. thoughts linear and logical. affect constricted, non-labile. mood not assessed. denies SI. no HI/AVH expressed. Diagnostics Vital Signs (24Hr): Vital Signs - 24 hr 07/14/21 19:50 07/15/21 06:00 Temperature 98.0 F 97.3 F Pulse Rate 98 80 Respiratory Rate 20 Blood Pressure 131/79 116/59 L Pulse Oximetry 99 96 Body Mass Index 20.5 Labs Results: 07/13/21 17:36 Labs: Laboratory Results - last 48 hr 07/13/21 07/13/21 07/13/21 17:36 17:36 17:36 Sodium 139 Potassium 3.2 L Chloride 106 Carbon Dioxide 25 Anion Gap 11 L BUN 15 Creatinine 0.80 Estim Creat Clear Calc 106.3 Estimated GFR > 60 Random Glucose 81 Calcium 8.5 D Vitamin B12 310 Folate 14.2 TSH Ethyl Alcohol < 10 07/13/21 17:36 Sodium Potassium Chloride Carbon Dioxide Anion Gap BUN Creatinine Estim Creat Clear Calc Estimated GFR Random Glucose Calcium Vitamin B12 Folate TSH 0.16 L Ethyl Alcohol Medications Medications Current Medications Generic Name Dose Route Start Last Admin Trade Name Freq PRN Reason Stop Dose Admin Al Hydroxide/Mg Hydroxide 30 ml 07/13/21 18:27 07/15/21 08:14 Magnesium Hydrox/Alum Hydrox 30 Ml Oral.Susp PO 30 ml Q6H PRN Administration Heartburn/Nausea Baclofen 5 mg 07/13/21 18:31 07/14/21 19:58 Baclofen 10 Mg Tablet PO 5 mg Q8H PRN Administration muscle spasm Buprenorphine/Naloxone 2 film 07/14/21 10:45 07/15/21 08:14 Buprenorphine/Naloxone 8/2 Mg Film SUBLINGUAL 2 film DAILY JULI Administration Chlorpromazine HCl 100 mg 07/15/21 09:58 Chlorpromazine Hcl 100 Mg Tablet PO Q4H PRN svr agitation; give with ativan Hydroxyzine HCl 50 mg 07/13/21 18:27 07/15/21 08:14 Hydroxyzine Hcl 25 Mg Tablet PO 50 mg Q6H PRN Administration Anxiety Ibuprofen 600 mg 07/14/21 12:56 07/14/21 19:57 Ibuprofen 600 Mg Tablet PO 600 mg Q6H PRN Administration Pain, Moderate (Pain Scale 4-6 Loperamide HCl 2 mg 07/13/21 20:20 Loperamide Hcl 2 Mg Capsule PO Q4H PRN Diarrhea Lorazepam 2 mg 07/15/21 09:58 Lorazepam 1 Mg Tablet PO Q4H PRN alcohol w/drwl or svr agitatio Magnesium Hydroxide 30 ml 07/13/21 18:27 Milk Of Magnesia 30 Ml Oral.Susp PO DAILY PRN Constipation Nicotine Polacrilex 4 mg 07/13/21 18:27 07/15/21 08:14 Nicotine Polacrilex 2 Mg Gum BUCCAL 4 mg Q2H PRN Administration Nicotine Cravings Trazodone HCl 100 mg 07/13/21 18:27 Trazodone Hcl 100 Mg Tablet PO BEDTIME PRN Insomnia Allergies Allergies Allergy/AdvReac Type Severity Reaction Status Date / Time acetaminophen [From VICODIN] Allergy Unknown HIVES Verified 07/03/21 13:13 ITCHY THROAT From VICODIN Allergy Unknown HIVES Uncoded 07/29/20 18:08 ITCHY THROAT Assessment & Plan Assessment & Plan (1) Suicidal ideations: Status: Acute Code(s): R45.851 - Suicidal ideations Assessment and Plan: safe in hospital. Q15 min checks. experiencing cocaine-withdrawn dysphoria currently. will reassess mood and risk daily. currently at low risk on the unit. (2) Polysubstance abuse: Status: Acute Code(s): F19.10 - Other psychoactive substance abuse, uncomplicated Assessment and Plan: restarted suboxone 16 mg daily. supportive care otherwise for cocaine liseth. abstain from cannabis. Assessment and Plan: investigating section 35 due to pt's inveterate use and inability to secure substance use Tx for himself voluntarily. Greater than 50% of the session was spent on counseling and/or coordination of care Reason for contiued inpatient stay Substantial Risk for: harm to self, inability to function and rapid decompensation
[2021-07-15] MEDS: Ibuprofen 600 MG TABLET PO ×2 (13:15→20:37)
[2021-07-15 16:15] VITALS: BP 117/57; PULSE 89; RESP 20; TEMP 36.8; O2SAT 99
[2021-07-15] MEDS: traZODone HCL 100 MG TABLET PO (20:37)
[2021-07-15] MEDS: Baclofen 10 MG TABLET 5 MG PO (20:37)
[2021-07-15 20:39] VITALS: BP 113/57; PULSE 85; TEMP 36.7; O2SAT 96
[2021-07-16 06:00] VITALS: BP 163/85; PULSE 98; RESP 16; TEMP 36.8; O2SAT 98
[2021-07-16] MEDS: hydrOXYzine HCL 25 MG TABLET 50 MG PO ×2 (09:52→18:18)
[2021-07-16] MEDS: LORazepam 1 MG TABLET PO ×4 (09:53→22:11)
[2021-07-16] MEDS: Ibuprofen 600 MG TABLET PO ×2 (09:53→18:18)
[2021-07-16] MEDS: Buprenorphine/Naloxone 8/2 mg FILM 2 FILM SUBLINGUAL (09:54)
--- NOTE | 2021-07-16 10:31 | HO.PSYCHPN ---
Subjective Subjective Date of Service: 07/18/21 Reason For Visit: SI Subjective Notes: 3 Day Interim History: Pt reports he is doing well. He has been more visible in the unit. He is social with select peers but is not attending assigned groups. Pt reports sleeping and eating well. He denies SI/HI. No VH/AH. He does not want to be referred to substance use treatment programs. He is asking to be discharged today. Medication Compliance: Yes Side effects from medications: No Attending Groups: No Review of Systems Acute medical concerns: No Review of Systems Review of Systems Constitutional : No Fever, No Chills ENT/Mouth : No Ear Pain, No Nasal Congestion, No sore throat Eyes: No Eye Pain, No Swelling, No Redness Cardiovascular : No Chest Pain, No SOB Respiratory : No Cough, No Sputum, No Dyspnea Gastrointestinal : No Nausea, No Vomiting, No Diarrhea, No Hematochezia, No Melena Genitourinary : No Dysuria, No Urinary Frequency, No Hematuria Musculoskeletal : No Myalgias Skin : No Skin Lesions, No rash Neuro : No Weakness, No Numbness, No Paresthesias, No Dizziness, No Headache Psych : no Anxiety, no Depression, no SI/HI Heme/Lymph: No Lymphadenopathy Endocrine : No Polyuria, No Polydipsia All other systems reviewed and are negative Mental Status Exam Mental Status Exam Narrative: Appearance: casually groomed, fair hygiene in NAD Behavior:calm, superficially cooperative psychomotor: no agitation or retardation noted Speech: clear, normal rate/rhyhtm/volume, spontaneous Thought process: linear Thought content: no signs of psychosis, wanting to leave Mood: good Affect: congruent, restless edge SI:none HI:none VH/AH: no signs Delusions: none Insight/judgment: poor x 2. Memory/cog: alert, oriented x 3. grossly intact to conversational testing. Diagnostics Vital Signs (24Hr): Vital Signs - 24 hr 07/18/21 08:36 Pulse Rate 110 H Blood Pressure 147/90 H Body Mass Index 20.5 Labs Results: 07/13/21 17:36 Medications Medications Current Medications Generic Name Dose Route Start Last Admin Trade Name Freq PRN Reason Stop Dose Admin Al Hydroxide/Mg Hydroxide 30 ml 07/13/21 18:27 07/15/21 08:14 Magnesium Hydrox/Alum Hydrox 30 Ml Oral.Susp PO 30 ml Q6H PRN Administration Heartburn/Nausea Baclofen 5 mg 07/13/21 18:31 07/16/21 22:11 Baclofen 10 Mg Tablet PO 5 mg Q8H PRN Administration muscle spasm Buprenorphine/Naloxone 2 film 07/14/21 10:45 07/18/21 08:48 Buprenorphine/Naloxone 8/2 Mg Film SUBLINGUAL 2 film DAILY JULI Administration Chlorpromazine HCl 100 mg 07/15/21 09:58 07/17/21 16:30 Chlorpromazine Hcl 100 Mg Tablet PO 100 mg Q4H PRN Administration svr agitation; give with ativan Hydroxyzine HCl 50 mg 07/13/21 18:27 07/17/21 08:19 Hydroxyzine Hcl 25 Mg Tablet PO 50 mg Q6H PRN Administration Anxiety Ibuprofen 600 mg 07/14/21 12:56 07/17/21 08:19 Ibuprofen 600 Mg Tablet PO 600 mg Q6H PRN Administration Pain, Moderate (Pain Scale 4-6 Loperamide HCl 2 mg 07/13/21 20:20 Loperamide Hcl 2 Mg Capsule PO Q4H PRN Diarrhea Lorazepam 1 mg 07/16/21 09:42 07/18/21 08:52 Lorazepam 1 Mg Tablet PO 1 mg Q4H PRN Administration alcohol w/drwl or svr agitatio Magnesium Hydroxide 30 ml 07/13/21 18:27 Milk Of Magnesia 30 Ml Oral.Susp PO DAILY PRN Constipation Nicotine Polacrilex 4 mg 07/13/21 18:27 07/15/21 08:14 Nicotine Polacrilex 2 Mg Gum BUCCAL 4 mg Q2H PRN Administration Nicotine Cravings Trazodone HCl 100 mg 07/13/21 18:27 07/16/21 22:11 Trazodone Hcl 100 Mg Tablet PO 100 mg BEDTIME PRN Administration Insomnia Allergies Allergies Allergy/AdvReac Type Severity Reaction Status Date / Time acetaminophen [From VICODIN] Allergy Unknown HIVES Verified 07/03/21 13:13 ITCHY THROAT From VICODIN Allergy Unknown HIVES Uncoded 07/29/20 18:08 ITCHY THROAT Assessment & Plan Assessment & Plan (1) Suicidal ideations: Status: Acute Code(s): R45.851 - Suicidal ideations Assessment and Plan: safe in hospital. Q15 min checks. experiencing cocaine-withdrawn dysphoria currently. will reassess mood and risk daily. currently at low risk on the unit. (2) Polysubstance abuse: Status: Acute Code(s): F19.10 - Other psychoactive substance abuse, uncomplicated Assessment and Plan: restarted suboxone 16 mg daily. supportive care otherwise for cocaine liseth. abstain from cannabis. Assessment and Plan: investigating section 35 due to pt's inveterate use and inability to secure substance use Tx for himself voluntarily. Greater than 50% of the session was spent on counseling and/or coordination of care Reason for contiued inpatient stay Substantial Risk for: harm to self
[2021-07-16] MEDS: Baclofen 10 MG TABLET 5 MG PO (22:11)
[2021-07-16] MEDS: traZODone HCL 100 MG TABLET PO (22:11)
[2021-07-16 22:14] VITALS: BP 135/78; PULSE 74; TEMP 36.7; O2SAT 98
[2021-07-17 06:00] VITALS: BP 124/76; PULSE 92; RESP 18; TEMP 36.7; O2SAT 99
[2021-07-17] MEDS: Ibuprofen 600 MG TABLET PO (08:19)
[2021-07-17] MEDS: LORazepam 1 MG TABLET PO ×3 (08:19→16:29)
[2021-07-17] MEDS: Buprenorphine/Naloxone 8/2 mg FILM 2 FILM SUBLINGUAL (08:19)
[2021-07-17] MEDS: hydrOXYzine HCL 25 MG TABLET 50 MG PO (08:19)
--- NOTE | 2021-07-17 10:36 | P.PNPSI_ITS ---
Subjective Subjective Date of Service: 07/18/21 Reason For Visit: SI Subjective Notes: 3 Day Interim History: Pt continues to report he is doing well. He has been more visible in the unit. He is social with select peers but is not attending assigned groups. Pt reports sleeping and eating well. He denies SI/HI. No VH/AH. He does not want to be referred to substance use treatment programs. He is asking to be discharged today again. Medication Compliance: Yes Side effects from medications: No Attending Groups: No Review of Systems Acute medical concerns: No Review of Systems Review of Systems Constitutional : No Fever, No Chills ENT/Mouth : No Ear Pain, No Nasal Congestion, No sore throat Eyes: No Eye Pain, No Swelling, No Redness Cardiovascular : No Chest Pain, No SOB Respiratory : No Cough, No Sputum, No Dyspnea Gastrointestinal : No Nausea, No Vomiting, No Diarrhea, No Hematochezia, No Melena Genitourinary : No Dysuria, No Urinary Frequency, No Hematuria Musculoskeletal : No Myalgias Skin : No Skin Lesions, No rash Neuro : No Weakness, No Numbness, No Paresthesias, No Dizziness, No Headache Psych : no Anxiety, no Depression, no SI/HI Heme/Lymph: No Lymphadenopathy Endocrine : No Polyuria, No Polydipsia All other systems reviewed and are negative Mental Status Exam Mental Status Exam Narrative: Appearance: casually groomed, fair hygiene in NAD Behavior:calm, superficially cooperative psychomotor: no agitation or retardation noted Speech: clear, normal rate/rhyhtm/volume, spontaneous Thought process: linear Thought content: no signs of psychosis, wanting to leave Mood: good Affect: congruent, restless edge SI:none HI:none VH/AH: no signs Delusions: none Insight/judgment: poor x 2. Memory/cog: alert, oriented x 3. grossly intact to conversational testing. Diagnostics Vital Signs (24Hr): Vital Signs - 24 hr 07/18/21 08:36 Pulse Rate 110 H Blood Pressure 147/90 H Body Mass Index 20.5 Labs Results: 07/13/21 17:36 Medications Medications Current Medications Generic Name Dose Route Start Last Admin Trade Name Freq PRN Reason Stop Dose Admin Al Hydroxide/Mg Hydroxide 30 ml 07/13/21 18:27 07/15/21 08:14 Magnesium Hydrox/Alum Hydrox 30 Ml Oral.Susp PO 30 ml Q6H PRN Administration Heartburn/Nausea Baclofen 5 mg 07/13/21 18:31 07/16/21 22:11 Baclofen 10 Mg Tablet PO 5 mg Q8H PRN Administration muscle spasm Buprenorphine/Naloxone 2 film 07/14/21 10:45 07/18/21 08:48 Buprenorphine/Naloxone 8/2 Mg Film SUBLINGUAL 2 film DAILY JULI Administration Chlorpromazine HCl 100 mg 07/15/21 09:58 07/17/21 16:30 Chlorpromazine Hcl 100 Mg Tablet PO 100 mg Q4H PRN Administration svr agitation; give with ativan Hydroxyzine HCl 50 mg 07/13/21 18:27 07/17/21 08:19 Hydroxyzine Hcl 25 Mg Tablet PO 50 mg Q6H PRN Administration Anxiety Ibuprofen 600 mg 07/14/21 12:56 07/17/21 08:19 Ibuprofen 600 Mg Tablet PO 600 mg Q6H PRN Administration Pain, Moderate (Pain Scale 4-6 Loperamide HCl 2 mg 07/13/21 20:20 Loperamide Hcl 2 Mg Capsule PO Q4H PRN Diarrhea Lorazepam 1 mg 07/16/21 09:42 07/18/21 08:52 Lorazepam 1 Mg Tablet PO 1 mg Q4H PRN Administration alcohol w/drwl or svr agitatio Magnesium Hydroxide 30 ml 07/13/21 18:27 Milk Of Magnesia 30 Ml Oral.Susp PO DAILY PRN Constipation Nicotine Polacrilex 4 mg 07/13/21 18:27 07/15/21 08:14 Nicotine Polacrilex 2 Mg Gum BUCCAL 4 mg Q2H PRN Administration Nicotine Cravings Trazodone HCl 100 mg 07/13/21 18:27 07/16/21 22:11 Trazodone Hcl 100 Mg Tablet PO 100 mg BEDTIME PRN Administration Insomnia Allergies Allergies Allergy/AdvReac Type Severity Reaction Status Date / Time acetaminophen [From VICODIN] Allergy Unknown HIVES Verified 07/03/21 13:13 ITCHY THROAT From VICODIN Allergy Unknown HIVES Uncoded 07/29/20 18:08 ITCHY THROAT Assessment & Plan Assessment & Plan (1) Suicidal ideations: Status: Acute Code(s): R45.851 - Suicidal ideations Assessment and Plan: safe in hospital. Q15 min checks. experiencing cocaine-withdrawn dysphoria cu rrently. will reassess mood and risk daily. currently at low risk on the unit. (2) Polysubstance abuse: Status: Acute Code(s): F19.10 - Other psychoactive substance abuse, uncomplicated Assessment and Plan: restarted suboxone 16 mg daily. supportive care otherwise for cocaine liseth. abstain from cannabis. Assessment and Plan: investigating section 35 due to pt's inveterate use and inability to secure substance use Tx for himself voluntarily. Greater than 50% of the session was spent on counseling and/or coordination of care Reason for contiued inpatient stay Substantial Risk for: stable for discharge
[2021-07-17] MEDS: chlorproMAZINE HCl 100 MG TABLET PO (16:30)
--- NOTE | 2021-07-18 01:08 | PC.NURSE ---
Eliezer was sleeping at 0100, no signs of withdrawal noted. No sweating or restlessness. RR=18. Did not wake patient for full CIWA assessment. Nurse will continue to monitor.
[2021-07-18 08:36] VITALS: BP 147/90; PULSE 110
[2021-07-18] MEDS: Buprenorphine/Naloxone 8/2 mg FILM 2 FILM SUBLINGUAL (08:48)
[2021-07-18] MEDS: LORazepam 1 MG TABLET PO (08:52)
--- NOTE | 2021-07-18 10:46 | PM.PSYDC ---
DS: Providers Provider Date of Service: 07/18/21 Date of admission: 07/13/21 18:27 Primary care physician: Unknown Physician DS: Diagnosis Discharge Diagnosis (1) Suicidal ideations: Status: Deleted (2) Polysubstance abuse: Status: Deleted DS: Medications Discharge Medications Home Medications: Home Medications Medication Instructions Recorded Confirmed buprenorphine 8 mg-naloxone 2 mg 2 strip SUBLINGUAL DAILY 07/12/21 07/12/21 sublingual film (Suboxone) Previous Rx's Medication Instructions Recorded nicotine (polacrilex) 2 mg gum 4 mg BUCCAL Q2H PRN #30 ea 07/18/21 Mental Status Exam Mental Status Exam Narrative: Appearance: casually groomed, fair hygiene in NAD Behavior:calm, superficially cooperative psychomotor: no agitation or retardation noted Speech: clear, normal rate/rhyhtm/volume, spontaneous Thought process: linear Thought content: no signs of psychosis, wanting to leave Mood: good Affect: congruent, restless edge SI:none HI:none VH/AH: no signs Delusions: none Insight/judgment: poor x 2. Memory/cog: alert, oriented x 3. grossly intact to conversational testing. Data Data Completed and Pending Completed studies during hospitalization [Text1]: 07/12/21 07/12/21 07/13/21 13:21 13:55 17:36 Sodium 139 Potassium 3.2 L Chloride 106 Carbon Dioxide 25 Anion Gap 11 L BUN 15 Creatinine 0.80 Estim Creat Clear Calc 106.3 Estimated GFR > 60 Random Glucose 81 Calcium 8.5 D Vitamin B12 Folate TSH Urine Opiates Screen POSITIVE H Urine Fentanyl Screen POSITIVE H Ur Barbiturates Screen Not Detected Ur Phencyclidine Scrn Not Detected Ur Amphetamines Screen Not Detected U Benzodiazepines Scrn Not Detected Urine Cocaine Screen POSITIVE H U Marijuana (THC) Screen POSITIVE H Ethyl Alcohol COVID-19 (NICHOLE) Negative COVID-19 Clin Com See Note 07/13/21 07/13/21 07/13/21 17:36 17:36 17:36 Sodium Potassium Chloride Carbon Dioxide Anion Gap BUN Creatinine Estim Creat Clear Calc Estimated GFR Random Glucose Calcium Vitamin B12 310 Folate 14.2 TSH 0.16 L Urine Opiates Screen Urine Fentanyl Screen Ur Barbiturates Screen Ur Phencyclidine Scrn Ur Amphetamines Screen U Benzodiazepines Scrn Urine Cocaine Screen U Marijuana (THC) Screen Ethyl Alcohol < 10 COVID-19 (NICHOLE) COVID-19 Clin Com DS: Summary Hospital Course Hospital Course: Mr. Atkinson is a 35 year-old male with hx of opioid use disorder, cocaine use disorder who was brought in by police after he was found somnolent/sedated, thought he may have unintentionally OD on opioid. In the ED, pt reported suicidal ideation. His utox was positive for cocaine, opioid, fentanyl, cannabis. On the unit, pt adamantly denied suicidal or homicidal ideation and demanded to be discharged. He signed a 3 day notice. He was initially in his room, in bed. After discussing risks, benefits and alternative treatment options, pt agreed to restart suboxone. Pt was also started on PRN medications for anxiety, opioid withdrawal. His affect gradually brighten and he was increasingly more visible in the unit. He denied suicidal or homicidal ideation. He continued to declined referrals for OP psychiatric treatment and substance use treatment. He did not want to wait until Sunday when suboxone clinic is open to reconnect him with services. Given that pt is much improved mood, no signs of psychosis, no signs of suicidal or homicidal ideation. Pt noted to have very limited insight into effects of substance use on mood, ability to have a more stable life. Pt given narcan on discharge as part of harm reduction intervention. Status at Discharge Cognitive/behavioral status at discharge: Pt with brigther affect. NO SI/HI. Non labile. No signs of aggression towards self or others. Limited insight into substance use which put him at chronic risk of unintentionally harming self due his addiction but at this point not due to suicidality. Functional status at discharge: independent ambulation Overall status at discharge: patient is progressing back to baseline Time Spent with Patient Time attestation: Total time spent providing and/or coordinating discharge services: Time spent: Greater than 30 minutes Discharge Plan Discharge Patient Disposition: Home, Self-Care Discharge Diagnosis: Substance induced mood disorder OPIOid use disorder Cocaine use disorder Referrals: Physician,Unknown [Primary Care Provider] - 1 Week Discharge Medications: New nicotine (polacrilex) 2 mg Gum 4 mg buccal Q2H PRN (Reason: Nicotine Cravings) Qty: 30 RF: 0 Continued buprenorphine-naloxone [Suboxone] 8-2 mg film 2 strip sublingual DAILY RF: 0 Discharge Orders: Discharge Order (Routine); Ordered 09/06/21 Ordered By: Sakshi Hajati Diet: regular diet Activity on Discharge: As tolerated Stand Alone Forms: Patient Portal Discharge page Care Plan Goals: 1. Maintain mood 2. No SI/HI 3. Harm reduction- take home narcan Health Concerns: 1. Follow up with PCP Plan of Treatment: 1. Follow up with suboxone clinic to reconnect with care. Pt declined referrals in lie of sooner discharge from hospital 2. Go to nearest ED or call 911 in event of emergency. Assessment: Pt with bright affect, non labile. NO SI/HI. No signs of psychosis. Limited insight into substance use. Declines referrals for mental health treatment and substance use treatment. Patient Instructions: Polysubstance Abuse (ED)
[2021-07-18] MEDS: Naloxone HCl Nasal TAKE HOME 4 MG SPRAY NOSTRILALT (12:11)
== END 2021-07-18 12:20 | disposition home or self-care (01) | DRG 753 ==
LOC: HO.ED 14:46 → HO.PADLT16 07-13 18:34
PROVIDERS: Physician Assistant; Admitting Provider Psychiatry & Neurology Psychiatry; Emergency Provider Emergency Medicine; Visit Provider Psychiatry & Neurology Psychiatry
DX: F39 Unspecified mood [affective] disorder (principal); R45.851 Suicidal ideations; F11.20 Opioid dependence, uncomplicated; F19.10 Other psychoactive substance abuse, uncomplicated; F17.210 Nicotine dependence, cigarettes, uncomplicated; Z71.6 Tobacco abuse counseling; Z88.5 Allergy status to narcotic agent; Z88.6 Allergy status to analgesic agent
CPT/HCPCS: 36415; 80048; 80307; 82077; 82607; 82746; 84443; 87635; 93005; 99285

== ENCOUNTER 2021-07-24 13:20 | Emergency (ER) | payer MEDICAID, SELFPAY ==
--- NOTE | 2021-07-24 13:33 | ED.PSYCH ---
HPI - Psych General Chief Complaint: Psychiatric Symptoms <LUCIO Taylor Last Filed: 07/24/21 18:50> Stated Complaint: SEEKING DETOX <LUCIO Taylor Last Filed: 07/24/21 18:50> Time Seen by Provider: 07/24/21 13:23 <LUCIO Taylor Last Filed: 07/24/21 18:50> Source: patient and EMS <LUCIO Taylor Last Filed: 07/24/21 18:50> Mode of arrival: EMS <LUCIO Taylor Last Filed: 07/24/21 18:50> History of Present Illness HPI Narrative: 35-year-old male with a past medical history of opioid use disorder, cocaine use disorder, BIBA reporting suicidal ideations with plan to hang himself and requesting detox from benzos, heroin, and alcohol. Reports last used illicit substances yesterday, last drink early this morning, reports drinking about 1 pt of EtOH daily. Reports nausea/vomiting. Denies fever, chills, cough, CP/SOB, abdominal pain, HI <LUCIO Taylor Last Filed: 07/24/21 18:50> MD complaint: suicidal ideation, feels depressed and substance abuse <LUCIO Taylor Last Filed: 07/24/21 18:50> Related Data Home Medications: Home Medications Medication Instructions Recorded Confirmed buprenorphine 8 mg-naloxone 2 mg 2 strip SUBLINGUAL DAILY 07/12/21 07/12/21 sublingual film (Suboxone) Previous Rx's Medication Instructions Recorded nicotine (polacrilex) 2 mg gum 4 mg BUCCAL Q2H PRN #30 ea 07/18/21 <LUCIO Taylor Last Filed: 07/24/21 18:50> Allergies/Adverse Reactions: Allergies Allergy/AdvReac Type Severity Reaction Status Date / Time acetaminophen [From VICODIN] Allergy Unknown HIVES Verified 07/03/21 13:13 ITCHY THROAT From VICODIN Allergy Unknown HIVES Uncoded 07/29/20 18:08 ITCHY THROAT <LUCIO Taylor Last Filed: 07/24/21 18:50> Review of Systems Review of Systems: Constitutional: No Fever, No Chills, No Fatigue, No Malaise ENT/Mouth: No Ear Pain, No Nasal Congestion, No sore throat, No Rhinorrhea, No Swallowing Difficulty Eyes: No Eye Pain, No Swelling, No Vision Changes Cardiovascular: No Chest Pain, No SOB Respiratory: No Cough, No Dyspnea Gastrointestinal: + Nausea, + Vomiting, No Diarrhea, No Constipation, No Abdominal pain Genitourinary: No Dysuria, No Urinary Frequency, No Flank Pain, No Urinary Flow Changes Musculoskeletal: No joint pain, No Myalgias, No Joint Swelling Skin: No Skin Lesions, No rash Neuro: No Weakness, No Numbness, No Headache <LUCOI Taylor - Last Filed: 07/24/21 18:50> Yes all other systems are reviewed and are negative <LUCIO Taylor - Last Filed: 07/24/21 18:50> [facility] Past Medical History Attestation statement: The following information was validated with the patient. <LUCIO Taylor - Last Filed: 07/24/21 18:50> Medical History: Medical History (Updated 07/24/21 @ 18:50 by LUCIO Taylor) Addiction to drug <LUCIO Taylor - Last Filed: 07/24/21 18:50> Social History Social History: Social History Household Members: None Housing: Homeless Do you presently have visiting nurse or other home services: No Alcohol intake: unknown Patient Tobacco Use Status: Current everyday Tobacco user Tobacco use type: Cigarette Cigarette Packs Per Day: 1 Cigarettes Per Day: 20.0 e-Cigarette/Vaping Use: Never Used Second Hand Smoke Exposure: Yes Substance Use Type: Crack/Cocaine, Heroin and Marijuana Advance Directives: No Guardian: No service: No Sexual orientation: Did not discuss. <LUCIO Taylor - Last Filed: 07/24/21 18:50> Physical Exam Vital Signs: Vital Signs: Last Vital Signs Temp 97.5 F 07/24/21 14:00 Pulse 71 07/24/21 23:41 Resp 18 07/24/21 23:41 BP 96/67 07/24/21 23:41 Pulse Ox 98 07/24/21 23:41 Body Mass Index 20.3 <LUCIO Taylor Last Filed: 07/24/21 18:50> Vital Signs: Last Vital Signs Temp 97.5 F 07/24/21 14:00 Pulse 71 07/24/21 23:41 Resp 18 07/24/21 23:41 BP 96/67 07/24/21 23:41 Pulse Ox 98 07/24/21 23:41 Body Mass Index 20.3 <Ainsley Rodrigues MD - Last Filed: 07/25/21 08:37> Const: Other: Disheveled <LUCIO Taylor - Last Filed: 07/24/21 18:50> General: cooperative and poor hygiene <LUCIO Taylor - Last Filed: 07/24/21 18:50> Orientation/consciousness: patient oriented x3 <LUCIO Taylor - Last Filed: 07/24/21 18:50> Limitations: no limitations <LUCIO Taylor - Last Filed: 07/24/21 18:50> HENMT: Head: Yes normal to inspection <LUCIO Taylor - Last Filed: 07/24/21 18:50> Ears: hearing grossly normal bilaterally <LUCIO Taylor - Last Filed: 07/24/21 18:50> General nose exam: Normal external nose present <LUCIO Taylor - Last Filed: 07/24/21 18:50> Face and sinus: Yes normal facial exam <LUCIO Taylor - Last Filed: 07/24/21 18:50> Eyes: General: appearance normal, both eyes and all related structures <LUCIO Taylor - Last Filed: 07/24/21 18:50> Pupils: Equal, round and reactive pupils present <LUCIO Taylor - Last Filed: 07/24/21 18:50> EOM: EOMs intact bilaterally <LUCIO Taylor - Last Filed: 07/24/21 18:50> Neck: Neck: Yes normal visual inspection and Yes no meningeal signs <LUCIO Taylor - Last Filed: 07/24/21 18:50> Resp: Effort & Inspection: normal respiratory effort and no respiratory distress <LUCIO Taylor - Last Filed: 07/24/21 18:50> Cardio: Rate: regular rate <LUCIO Taylor - Last Filed: 07/24/21 18:50> Heart sounds: S1 normal heart sound present and S2 normal heart sound present <Rossy Gonzalez [facility] Last Filed: 07/24/21 18:50> GI: Inspection: Yes normal to inspection <Rossy Gonzalez [facility] Last Filed: 07/24/21 18:50> Palpation (GI): Soft to palpation, nontender, no guarding and not rigid <Rossy Gonzalez [facility] Last Filed: 07/24/21 18:50> Skin: Rashes: no rashes <Rossy Gonzalez [facility] Last Filed: 07/24/21 18:50> Wounds: no wounds <Rossy Gonzalez [facility] Last Filed: 07/24/21 18:50> Neuro: General: patient oriented x3, no meningeal signs and CN's II-XI intact bilaterally <Rossy Gonzalez [facility] Last Filed: 07/24/21 18:50> Cranial nerves: Yes Equal, round and reactive pupils present <Rossy Gonzalez [facility] Last Filed: 07/24/21 18:50> Gait exam (Neuro): Normal gait present <Rossy Gonzalez [facility] Last Filed: 07/24/21 18:50> Extrem: General: Yes normal to inspection <Rossy Gonzalez [facility] Last Filed: 07/24/21 18:50> Psych: Appearance: disheveled <Rossy Gonzalez [facility] Last Filed: 07/24/21 18:50> Attitude: Avoids eye contact (attititude/behavior) <Rossy Gonzalez [facility] Last Filed: 07/24/21 18:50> Thought content: Suicidality present and no homicidality <Rossy Gonzalez [facility] Last Filed: 07/24/21 18:50> Insight: Poor insight present (Psych) <Rossy Gonzalez [facility] Last Filed: 07/24/21 18:50> Course Course Course Narrative: -patient refusing blood draws -patient refusing to engage in Care Team/legal recovery specialist evaluation. -2099-- ED care transferred to [place] Marcelino pending Care team eval, and labs if patients agreeable <Rossy Gonzalez [facility] Last Filed: 07/24/21 18:50> -patient refusing blood draws -patient refusing to engage in Care Team/legal recovery specialist evaluation. -2099-- ED care transferred to LUCIO Benson pending Care team eval, and labs if patients agreeable Patient was evaluated by the care team. Patient is being discharged to [facility] <Ainsley Rodrigues MD - Last Filed: 07/25/21 08:37> MDM - Psych MDM Narrative Medical decision making narrative: 35-year-old male with a past medical history of opioid use disorder, cocaine use disorder, BIBA reporting suicidal ideations with plan to hang himself and requesting detox from benzos, heroin, and alcohol. On exam VSS, discharge hold, squirmish, NAD/nontoxic, abdomen soft/nontender. Concern for withdrawal & suicidality. Patient was recently discharged from our psychiatric unit on 07/18/2021 Plan: Labs, UA, [facility], Crisis eval <LUCIO Taylor - Last Filed: 07/24/21 18:50> Medical Records Attestation: I reviewed the patient's medical records. <LUCIO Taylor - Last Filed: 07/24/21 18:50> Lab Data Attestation: I reviewed the patient's lab results. <LUCIO Taylor - Last Filed: 07/24/21 18:50> Labs: Lab Results 07/24/21 07/24/21 Range/Units 14:06 22:19 Urine Opiates Screen POSITIVE H (Not Detect) Urine Fentanyl Screen POSITIVE H (Not Detect) Ur Barbiturates Screen Not Detected (Not Detect) Ur Phencyclidine Scrn Not Detected (Not Detect) Ur Amphetamines Screen Not Detected (Not Detect) U Benzodiazepines Scrn Not Detected (Not Detect) Urine Cocaine Screen POSITIVE H (Not Detect) U Marijuana (THC) Screen Not Detected (Not Detect) COVID-19 (NICHOLE) Negative (Negative) COVID-19 Clin Com See Note <LUCIO Taylor - Last Filed: 07/24/21 18:50> Lab Results 07/24/21 07/24/21 Range/Units 14:06 22:19 Urine Opiates Screen POSITIVE H (Not Detect) Urine Fentanyl Screen POSITIVE H (Not Detect) Ur Barbiturates Screen Not Detected (Not Detect) Ur Phencyclidine Scrn Not Detected (Not Detect) Ur Amphetamines Screen Not Detected (Not Detect) U Benzodiazepines Scrn Not Detected (Not Detect) Urine Cocaine Screen POSITIVE H (Not Detect) U Marijuana (THC) Screen Not Detected (Not Detect) COVID-19 (NICHOLE) Negative (Negative) COVID-19 Clin Com See Note <Ainsley Rodrigues MD - Last Filed: 07/25/21 08:37> Discharge Plan Discharge Clinical Impression: Polysubstance abuse, Suicidal ideations <LUCIO Taylor - Last Filed: 07/24/21 18:50> Patient Disposition: [facility] <LUCIO Taylor - Last Filed: 07/24/21 18:50> Transfer Details: Kaitlin Espitia <LUCIO Taylor - Last Filed: 07/24/21 18:50> Kaitlin Nupur <Ainsley Rodrigues MD - Last Filed: 07/25/21 08:37> Prescriptions: No Action buprenorphine-naloxone [Suboxone] 8-2 mg film 2 strip sublingual DAILY RF: 0 nicotine (polacrilex) 2 mg Gum 4 mg buccal Q2H PRN (Reason: Nicotine Cravings) Qty: 30 RF: 0 <LUCIO Taylor - Last Filed: 07/24/21 18:50>
[2021-07-24 13:48] VITALS: BP 109/59; PULSE 79; RESP 14; TEMP 36.4; O2SAT 96
[2021-07-24 14:00] VITALS: BP 109/59; BP 118/74; PULSE 79; PULSE 82; RESP 16; TEMP 36.4; O2SAT 100; O2SAT 96; BMI 20.3
--- NOTE | 2021-07-24 14:17 | PC.NURSE ---
Pt refusing first attempt for lab draw, will re attempt
[2021-07-24 14:34] LABS: COVID-19 Test Negative (Negative); IDNOW Serial# 55D5AD1C
[2021-07-24 23:03] LABS: Amphetamine Screen Urine Not Detected (Not Detect); Barbiturates, Urine Not Detected (Not Detect); Benzodiazepines Screen Urine Not Detected (Not Detect); Cannabinoid Screen Urine Not Detected (Not Detect); Cocaine Screen Urine POSITIVE (Not Detect); Fentanyl, urine POSITIVE (Not Detect); Opiate Screen Urine POSITIVE (Not Detect); Phencyclidine Screen Urine Not Detected (Not Detect)
[2021-07-24 23:41] VITALS: BP 96/67; PULSE 71; RESP 18; O2SAT 98
--- NOTE | 2021-07-25 00:01 | MHC.CARE ---
[facility] unable to provide a clinician to evaluate pt. CARE team completed evaluation in lieu of [facility]N. Disposition is for [facility] placement. Marcelino VALDES updated re: plan of care.
--- NOTE | 2021-07-25 05:52 | PC.NURSE ---
Patient in bed appears sleeping, no distress observed/reported, patient got seen by care team, per care team patient's disposition voluntary [facility] bed search at this time, patient refused lab draw, behavior at base line non concerning at this time, patient is not on medication at this time, will continue to monitor.
--- NOTE | 2021-07-25 07:10 | PC.NURSE ---
patient appears to remain asleep at present with even regular respirations, patient appears in no distress
--- NOTE | 2021-07-25 08:21 | MHC.CARE ---
[facility]
--- NOTE | 2021-07-25 08:56 | MHC.RECOVSUP ---
Recovery Support note: Patient is a 35 year old Venezuelan speaking male who presented to [facility] ED reporting substance use and SI. Patient was evaluated by the CARE Team with a plan for patient to go to [facility]. CARE Team informed this literary writer that patient has a bed at [facility] at 900. This literary writer arranged a Lyft and assisted patient in discharging to [facility].
== END 2021-07-25 08:41 | disposition short-term general hospital (02) ==
PROVIDERS: Physician Assistant; Emergency Provider Student in an Organized Health Care Education/Training Program
DX: F33.1 Major depressive disorder, recurrent, moderate (principal); R45.851 Suicidal ideations; F11.19 Opioid abuse with unspecified opioid-induced disorder; F14.10 Cocaine abuse, uncomplicated; Z20.822 Contact with and (suspected) exposure to COVID-19; Z71.51 Drug abuse counseling and surveillance of drug abuser; Z79.899 Other long term (current) drug therapy
CPT/HCPCS: 36415; 80307; 87635; 99283

== ENCOUNTER 2021-08-04 05:07 | Emergency (ER) | payer MEDICAID, SELFPAY ==
--- NOTE | 2021-08-04 14:55 | MHC.RECOVSUP ---
Recovery Support note: This policy writer typist spoke with Royal Cast at [facility] and confirmed his methadone dose. [facility] reports that he last received 35mg on 08/02 and that he missed yesterday. [facility] reports that if he had shown up today, he would get 35mg. Patient will be able to continue with the program as long as he goes back tomorrow. Discussed with patient and instructed patient to bring his discharge paperwork with him to the clinic tomorrow. Patient acknowledged. Discussed case with patient's RN and ED provider.
[2021-08-04] MEDS: methADONE HCl 20 MG/2 ML ORAL.CONC 35 MG PO (15:06)
== END 2021-08-04 15:09 | disposition home or self-care (01) ==
PROVIDERS: Emergency Provider Emergency Medicine
DX: M79.89 Other specified soft tissue disorders (principal); M79.672 Pain in left foot; M79.671 Pain in right foot
CPT/HCPCS: 99283

== ENCOUNTER 2021-08-11 14:04 | Inpatient (IN) | payer MEDICAID, SELFPAY ==
--- NOTE | ~2021-08-11 | US_ITS ---
EXAMINATION: US VENOUS ULTRASOUND WITH DOPPLER LOWER EXTREMITY, BILATERAL CLINICAL INFORMATION: Pain edema COMPARISON: None TECHNIQUE: Ultrasound of the deep veins is performed from the hip to the calf with compression sonography and color and pulse Doppler assessment. Spectral analysis with color-flow imaging is performed. FINDINGS: RIGHT: There is normal venous compression and respiratory variation and augmented flow. The visualized common femoral vein, superficial femoral vein, profunda femoral vein, popliteal vein, and the trifurcation region shows no evidence of deep venous thrombosis. There is no significant popliteal fossa cyst. Prominent lymph nodes in the groin LEFT: There is normal venous compression and respiratory variation and augmented flow. The visualized common femoral vein, superficial femoral vein, profunda femoral vein, popliteal vein, and the trifurcation region shows no evidence of deep venous thrombosis. There is no significant popliteal fossa cyst. Mildly prominent lymph node If the patient's symptoms persist, followup ultrasound in 5 days 7 days might be of value to exclude proximal propagation from a non-visualized calf vein. US/US venous duplex LE BI IMPRESSION: No DVT demonstrated in the bilateral lower extremity. Groin nodes are noted. Correlation recommended clinically
--- NOTE | ~2021-08-11 | XR_ITS ---
Indication: Swollen, question osteomyelitis EXAMINATION: Left foot, left tib-fib. 3 views of the left foot does not demonstrate evidence for bony erosion. Alignment is felt to be within normal limits. No soft tissue air is seen. Soft tissue increase is seen over the metatarsals. 2 views of the left tib-fib show no bony finding. No bony erosion. No fracture. No soft tissue air. XR/XR tibia fibula LT 2V IMPRESSION: No acute bony finding left tib-fib, left foot.
--- NOTE | ~2021-08-11 | MR_ITS ---
EXAMINATION: MRI LEFT FOOT WITHOUT AND WITH CONTRAST CLINICAL INFORMATION: Foot infection, rule out osteomyelitis COMPARISON: X-ray 08/11/2021 TECHNIQUE: MRI in a high-field magnet without and with contrast. 6.5 mL Gadavist. FINDINGS: Motion artifact degrading images, limiting evaluation. There is dorsal soft tissue swelling and subcutaneous edema/cellulitis. There is peripherally enhancing T2 bright collection in the dorsal lateral subcutaneous tissues, at the level of the mid/distal fifth metatarsal. This measures 1.7 x 0.8 x 2.2 cm (transverse, AP, length). For example reference image 9:11-14. Findings are suspicious for an abscess. The plantar aspect of this collection abuts the fifth extensor tendon coursing in this region. Tendon is intact. There is mild T2 signal in the mid to distal fifth metatarsal, with maintained T1 signal. The findings favor reactive edema rather than osteomyelitis. No additional areas of osteomyelitis identified. Tendons otherwise are intact. Plantar aponeurosis appears unremarkable. MR/MR foot LT wo/w con IMPRESSION: 1. Peripherally enhancing T2 bright collection in the dorsal lateral subcutaneous tissues at the level of the mid/distal fifth metatarsal measuring 1.7 x 0.8 x 2.2 cm. Findings suspicious for an abscess. Of note, the plantar aspect of the collection abuts the fifth digit extensor tendon coursing through this region. 2. Dorsal soft tissue swelling and subcutaneous edema/cellulitis. 3. Findings in the mid to distal fifth metatarsal favors reactive edema, with early osteomyelitis not excluded. Follow-up MRI for reassessment as clinically warranted. The report will be called to the ordering clinician by a [place] [facility] Physician Doorperson Or Luggage Porter.
--- NOTE | ~2021-08-11 | XR_ITS ---
Indication: Swollen, question osteomyelitis EXAMINATION: Left foot, left tib-fib. 3 views of the left foot does not demonstrate evidence for bony erosion. Alignment is felt to be within normal limits. No soft tissue air is seen. Soft tissue increase is seen over the metatarsals. 2 views of the left tib-fib show no bony finding. No bony erosion. No fracture. No soft tissue air. XR/XR foot LT 2V IMPRESSION: No acute bony finding left tib-fib, left foot.
[2021-08-11 14:12] VITALS: BP 130/71; BP 140/78; PULSE 58; PULSE 66; RESP 18; TEMP 36.4; O2SAT 100; O2SAT 99; BMI 21.9
--- NOTE | 2021-08-11 16:48 | ED.GENADULT ---
HPI - General Adult General Chief complaint: General Medical Stated complaint: FOOT INFECTION Time Seen by Provider: 08/11/21 17:59 Source: patient Mode of arrival: ambulatory Limitations: no limitations History of Present Illness HPI narrative: Patient presents to the ED left lower extremity swelling or redness. Patient went for evaluation of detox tomorrow [place] but they notice left foot swelling and redness going up to below knee. Warm to touch on palpation. Patient has dry ulcer on dorsal aspect of left foot. Patient denies any trauma to left lower extremity. Patient denies any IV drug use into foot. Related Data Home Medications Medication Instructions Recorded Confirmed buprenorphine 8 mg-naloxone 2 mg 2 strip SUBLINGUAL DAILY 07/12/21 07/12/21 sublingual film (Suboxone) Previous Rx's Medication Instructions Recorded nicotine (polacrilex) 2 mg gum 4 mg BUCCAL Q2H PRN #30 ea 07/18/21 Allergies Allergy/AdvReac Type Severity Reaction Status Date / Time acetaminophen [From VICODIN] Allergy Unknown HIVES Verified 07/03/21 13:13 ITCHY THROAT From VICODIN Allergy Unknown HIVES Uncoded 07/29/20 18:08 ITCHY THROAT Review of Systems Review of Systems: Yes all other systems are reviewed and are negative Constitutional: Constitutional: Reports as per HPI and Reports no additional constitutional complaints Eyes: Eyes: Reports as per HPI and Reports no additional eye complaints ENT: Reports system reviewed and no additional complaints, except as documented and Reports as per HPI Cardiovascular: Cardiovascular: Reports as per HPI and Reports no additional cardiovascular complaints Respiratory: Respiratory: Reports as per HPI and Reports no additional respiratory complaints Gastrointestinal: Gastrointestinal: Reports as per HPI and Reports no additional gastrointestinal complaints Genitourinary: Genitourinary: Reports no additional male genitourinary complaints and Reports as per HPI Musculoskeletal: Musculoskeletal: Reports no additional musculoskeletal complaints and Reports as per HPI Comments: Left foot swollen redness. Left leg swelling redness. Neurologic: Reports system reviewed and no additional complaints, except as documented and Reports as per HPI Psychiatric: Psychiatric: Reports no additional psychiatric complaints and Reports as per HPI PMF Past Medical History Medical History (Updated 08/11/21 @ 14:14 by Airam Maza RN) Addiction to drug Substance abuse Social History Social History Household Members: None Housing: Homeless Do you presently have visiting nurse or other home services: No Alcohol intake: unknown Patient Tobacco Use Status: Current everyday Tobacco user Tobacco use type: Cigarette Cigarette Packs Per Day: 1 Cigarettes Per Day: 20.0 e-Cigarette/Vaping Use: Never Used Second Hand Smoke Exposure: Yes Substance Use Type: Crack/Cocaine, Heroin and Marijuana Advance Directives: No Advance Directives Information Provided: Yes service: No Sexual orientation: Did not discuss. Physical Exam Vital Signs: Vital Signs: Last Vital Signs Temp 98.5 F 08/11/21 17:28 Pulse 62 08/11/21 17:28 Resp 16 08/11/21 17:28 BP 116/45 L 08/11/21 17:28 Pulse Ox 99 08/11/21 17:28 Body Mass Index 21.9 Const: General: cooperative, healthy appearing, comfortable, no acute distress, well developed, alert, awake and Physically active; No acute distress Orientation/consciousness: patient oriented x3 HENMT: Head: Yes normal to inspection, Yes No palpable skull fracture present, Yes normocephalic and Yes atraumatic Eyes: General: appearance normal, both eyes and all related structures Neck: Neck: Yes normal visual inspection, Yes full ROM, Yes no lymphadenopathy, Yes no meningeal signs, Yes trachea midline, Yes supple and No tender Chest: Chest palpation & inspection: normal inspection of the chest and normal palpation of entire chest wall Resp: Effort & Inspection: normal respiratory effort and able to speak in complete sentences Auscultation: clear to auscultation bilaterally Cardio: Jugular venous distension: no JVD Heart sounds: S1 normal heart sound present and S2 normal heart sound present GI: Inspection: Yes normal to inspection and No abdominal wall ecchymosis Palpation (GI): Soft to palpation, not firm, nontender, no guarding and not rigid : General: No CVA tenderness and Yes no CVA tenderness Back/Spine/Pelvis: Back: no CVA tenderness, No CVA tenderness, No mass, No erythema, No warmth, No sacral edema and No ecchymosis Skin: General skin exam: no rashes or lesions noted and elasticity normal Neuro: General: patient oriented x3, gait normal, no meningeal signs and CN's II-XI intact bilaterally Cranial nerves: Yes CN's II-XII intact bilaterally Extrem: General: Yes normal to inspection and Yes full ROM Upper/lower leg/hip images: 1. Redness and swelling of foot up to below knee. Dry ulcer on the dorsal aspect of foot. Leg and foot erythematous obtained on palpation. Psych: Appearance: grossly normal, well kempt and not disheveled Course Course Course Narrative: Patient have medical evaluation. Diagnosis cellulitis versus DVT. Reevaluation(s) Reevaluation #1: Negative white blood cell count. Ultrasound and x-rays negative for osteomyelitis. CRP ESR elevated. Spoke with hospitalist for admission for IV antibiotics for cellulitis. Patient agreeable plan Time: 19:53 Medical Decision Making [facility] Narrative Medical decision making narrative: Cellulitis Lab Data Result diagrams: 08/11/21 17:40 08/11/21 17:40 Labs: Lab Results 08/11/21 08/11/21 08/11/21 Range/Units 17:40 17:40 17:40 WBC 9.4 (4.8-10.8) X10*3/uL RBC 3.46 L D (4.60-5.80) X10*6/uL Hgb 10.2 L (14.0-18.0) g/dl Hct 30.9 L D (42-52) % MCV 89.3 (80-98) fL MCH 29.5 (27.0-33.0) pg MCHC 33.0 (31.0-36.0) g/dl RDW 13.6 (11.0-16.0) % Plt Count 358 (160-400) X10*3/uL MPV 9.4 (9.4-12.4) fL Immature Gran % (Auto) 0.3 (0.0-0.4) % Neut % (Auto) 66.2 (45-73) % Lymph % (Auto) 19.4 L (20-40) % [place] % (Auto) 7.9 (2-11) % Eos % (Auto) 6.0 H (0-4) % Baso % (Auto) 0.2 (0-2) % Lymph # (Auto) 1.8 (1.2-4.9) X10*3/uL [place] # (Auto) 0.7 (0.1-1.2) X10*3/uL Eos # (Auto) 0.6 H (0.0-0.4) X10*3/uL Baso # (Auto) 0.0 (0.0-0.2) X10*3/uL Abs Immat Gran (auto) 0.03 (0.00-0.03) X10*3/uL Absolute Neuts (auto) 6.2 (2.0-8.3) X10*3/uL Absolute Nucleated RBC 0.000 (0.0-0.012) X10*3/uL Nucleated RBC % (auto) 0.0 (0.0-0.2) /100WBC ESR 43 H (0-15) MM/HR Sodium 138 (135-145) mmol/L Potassium 3.4 (3.3-5.1) mmol/L Chloride 102 (96-108) mmol/L Carbon Dioxide 28 (22-29) mmol/L Anion Gap 11 L (12-20) BUN 11 (9-16) mg/dL Creatinine 0.82 (0.5-1.4) mg/dL Estim Creat Clear Calc 110.7 Estimated GFR > 60 Random Glucose 95 (60-115) mg/dL Lactic Acid (0.5-2.0) mmol/L Calcium 8.4 (8.4-10.2) mg/dL Total Bilirubin 0.2 (0.0-1.0) mg/dL AST 19 (5-37) U/L ALT 24 (0-40) U/L Alkaline Phosphatase 90 (39-117) U/L C-Reactive Protein 8.61 H (< or = 0.50) mg/dL B-Natriuretic Peptide (<100) pg/mL Total Protein 6.6 (6.5-8.0) g/dL Albumin 3.4 L (3.5-5.0) g/dL 08/11/21 08/11/21 Range/Units 17:40 17:40 WBC (4.8-10.8) X10*3/uL RBC (4.60-5.80) X10*6/uL Hgb (14.0-18.0) g/dl Hct (42-52) % MCV (80-98) fL MCH (27.0-33.0) pg MCHC (31.0-36.0) g/dl RDW (11.0-16.0) % Plt Count (160-400) X10*3/uL MPV (9.4-12.4) fL Immature Gran % (Auto) (0.0-0.4) % Neut % (Auto) (45-73) % Lymph % (Auto) (20-40) % [place] % (Auto) (2-11) % Eos % (Auto) (0-4) % Baso % (Auto) (0-2) % Lymph # (Auto) (1.2-4.9) X10*3/uL [place] # (Auto) (0.1-1.2) X10*3/uL Eos # (Auto) (0.0-0.4) X10*3/uL Baso # (Auto) (0.0-0.2) X10*3/uL Abs Immat Gran (auto) (0.00-0.03) X10*3/uL Absolute Neuts (auto) (2.0-8.3) X10*3/uL Absolute Nucleated RBC (0.0-0.012) X10*3/uL Nucleated RBC % (auto) (0.0-0.2) /100WBC ESR (0-15) MM/HR Sodium (135-145) mmol/L Potassium (3.3-5.1) mmol/L Chloride (96-108) mmol/L Carbon Dioxide (22-29) mmol/L Anion Gap (12-20) BUN (9-16) mg/dL Creatinine (0.5-1.4) mg/dL Estim Creat Clear Calc Estimated GFR Random Glucose (60-115) mg/dL Lactic Acid 1.0 (0.5-2.0) mmol/L Calcium (8.4-10.2) mg/dL Total Bilirubin (0.0-1.0) mg/dL AST (5-37) U/L ALT (0-40) U/L Alkaline Phosphatase (39-117) U/L C-Reactive Protein (< or = 0.50) mg/dL B-Natriuretic Peptide 83 (<100) pg/mL Total Protein (6.5-8.0) g/dL Albumin (3.5-5.0) g/dL Discharge Plan Discharge Patient Disposition: Admitted As Inpatient
--- NOTE | 2021-08-11 17:00 | PC.NURSE ---
Pt c/o LLE swelling and redness, extremity warm to touch. She also has a dry ulcer on her left foot. She denies trauma or IV drug use in her foot. Pt denies fever/chills/n/v/d. Pt alert and oriented, vss. no other symptoms reported
[2021-08-11 17:28] VITALS: BP 116/45; PULSE 62; RESP 16; TEMP 36.9; O2SAT 99
--- NOTE | 2021-08-11 17:49 | PC.NURSE ---
WHILE DRAWING 2ND SET CULTURES ,PATIENT BECAME RESISTIVE AND REFUSED TO HAVE BLOOD DRAWN I NOTIFY LUCIO EGAN THAT CULTURE BOTTLES HAS DROPS OF BLOOD ,HE SAID IT WAS FINE TO SEND IT ANY WAY .
[2021-08-11 17:57] LABS: MANUAL DIFF FLAG NO
[2021-08-11 18:00] LABS: Basophils Percent Auto 0.2 % (0-2); Eosinophils Absolute Auto 0.6 X10*3/uL (0.0-0.4); Hematocrit 30.9 % (42-52); Hemoglobin 10.2 g/dl (14.0-18.0); Imm Gran Abs Auto 0.03 X10*3/uL (0.00-0.03); Imm Gran Pct Auto 0.3 % (0.0-0.4); Lymphocytes Absolute Auto 1.8 X10*3/uL (1.2-4.9); Lymphocytes Percent Auto 19.4 % (20-40); Mean Corpuscular Hemoglobin 29.5 pg (27.0-33.0); Mean Corpuscular Volume 89.3 fL (80-98); Mean Platelet Volume 9.4 fL (9.4-12.4); Monocytes Absolute Auto 0.7 X10*3/uL (0.1-1.2); Monocytes Percent Auto 7.9 % (2-11); Neutrophils Absolute Auto 6.2 X10*3/uL (2.0-8.3); Neutrophils Percent Auto 66.2 % (45-73); Platelet Count 358 X10*3/uL (160-400); Red Blood Count 3.46 X10*6/uL (4.60-5.80); Red Cell Distribution Width 13.6 % (11.0-16.0); White Blood Count 9.4 X10*3/uL (4.8-10.8)
[2021-08-11 18:17] LABS: Alanine Aminotransferase 24 U/L (0-40); Albumin Level 3.4 g/dL (3.5-5.0); Alkaline Phosphatase 90 U/L (39-117); Anion Gap 11 (12-20); Aspartate Amino Transferase 19 U/L (5-37); Bilirubin Total 0.2 mg/dL (0.0-1.0); Blood Urea Nitrogen 11 mg/dL (9-16); C Reactive Protein 8.61 mg/dL (< or = 0.50); Calcium 8.4 mg/dL (8.4-10.2); Carbon Dioxide 28 mmol/L (22-29); Chloride 102 mmol/L (96-108); Creatinine Clr Calc Pharmacy 110.7; Estimated Glomerular Filt Rate > 60; Glucose Random 95 mg/dL (60-115); Potassium 3.4 mmol/L (3.3-5.1); Sodium 138 mmol/L (135-145); Total Protein 6.6 g/dL (6.5-8.0)
[2021-08-11 18:20] LABS: B Type Natriuretic Peptide 83 pg/mL (<100)
[2021-08-11 18:43] LABS: Erythrocyte Sedimentation Rate 43 MM/HR (0-15)
--- NOTE | 2021-08-11 20:07 | P.HPHOSP_ITS ---
History of Present Illness Date of Service: 08/11/21 Chief Complaint: Left foot pain redness and swelling 35-year-old male with the past medical history depression, opiate abuse, cocaine abuse, tobacco dependence chief complaint of left foot pain redness and swelling. Patient reports that he has been having left foot pain and swelling for the past 1 week. Which has been gradually worsening. Patient reports his snorts cocaine and heroin on a regular basis. He went to to the detox facility today was told to go to the hospital for further evaluation of his left foot. Patient denies any chest pain palpitations lightheadedness or dizziness review chills cough. Denies any GI or symptoms. Patient reported that he was on Suboxone and was not taking it for a week or 2; went to the detox facility today who told him to go to the hospital given his left foot findings. Review of all other systems is negative except mentioned above ER course: Per ER team patient's left lower extremity venous duplex showed no evidence of blood clot; x-ray showed no evidence of osteomyelitis; no fluctuance noted; findings concerning for cellulitis; given vancomycin. Admitted to the hospital for further management. [facility] Medical History (Updated 08/11/21 @ 14:14 by Airam Maza RN) Addiction to drug Substance abuse Pertinent family history: Reviewed and noncontributory to the current presentation Social History Household Members: None Housing: Homeless Do you presently have visiting nurse or other home services: No Alcohol intake: unknown Patient Tobacco Use Status: Current everyday Tobacco user Tobacco use type: Cigarette Cigarette Packs Per Day: 1 Cigarettes Per Day: 20.0 e-Cigarette/Vaping Use: Never Used Second Hand Smoke Exposure: Yes Substance Use Type: Crack/Cocaine, Heroin and Marijuana Advance Directives: No Advance Directives Information Provided: Yes service: No Sexual orientation: Did not discuss. Meds Allergies Allergy/AdvReac Type Severity Reaction Status Date / Time acetaminophen [From VICODIN] Allergy Unknown HIVES Verified 07/03/21 13:13 ITCHY THROAT From VICODIN Allergy Unknown HIVES Uncoded 07/29/20 18:08 ITCHY THROAT Active Medications: Current Medications Acetaminophen (Acetaminophen 325 Mg Tablet) 650 mg PO Q6H PRN PRN Reason: Pain, Mild (Pain Scale 1-3) Clonidine HCl (Clonidine Hcl 0.1 Mg Tablet) 0.1 mg PO BID PRN; Protocol PRN Reason: anxiety/restlessness Heparin Sodium (Porcine) (Heparin Sodium,Porcine 5,000 Unit/Ml Vial) 5,000 unit SUBCUT Q8H JULI Vancomycin HCl 1,000 mg/ (Sodium Chloride) 270 mls @ 270 mls/hr IV ONCE ONE Stop: 08/11/21 20:58 Piperacillin Sod/Tazobactam (Sod 3.375 gm/ Sodium Chloride) 50 mls @ 100 mls/hr IV ONCE ONE Stop: 08/11/21 20:29 Dextrose/Sodium Chloride (D51/2ns) 1,000 mls @ 100 mls/hr IVCONT .Q10H JULI Vancomycin HCl 1,000 mg/ (Sodium Chloride) 270 mls @ 270 mls/hr IV Q12H JULI Melatonin (Melatonin 3 Mg Tablet) 6 mg PO BEDTIME PRN PRN Reason: Insomnia Naloxone HCl (Naloxone Hcl 0.4 Mg/Ml Vial) 0.1 mg IVPUSH Q2M PRN PRN Reason: Respiratory Rate < 10 Oxycodone HCl (Oxycodone Hcl Immed Release 5 Mg Tablet) 5 mg PO Q6H PRN PRN Reason: Pain, Severe (Pain Scale 7-10) Pharmacy Consult (Consult Rx Vancomycin Dosing) 1 each MISCELLANE DAILY PRN PRN Reason: Consult order Senna (Sennosides 8.6 Mg Tablet) 17.2 mg PO BEDTIME PRN PRN Reason: Constipation Sodium Chloride (0.9 % Sodium Chloride Flush 3 Ml Syringe) 3 ml IVFLUSH QSHIFT [facility] Home Medications Medication Instructions Recorded Confirmed Last Taken Type buprenorphine 8 mg-naloxone 2 mg 3 strip SUBLINGUAL DAILY 07/12/21 08/11/21 08/11/21 History sublingual film (Suboxone) Physical Exam Vital Signs and Narrative: Vital Signs: Last Vital Signs Temp 98.5 F 08/11/21 17:28 Pulse 62 08/11/21 17:28 Resp 16 08/11/21 17:28 BP 116/45 L 08/11/21 17:28 Pulse Ox 99 08/11/21 17:28 Body Mass Index 21.9 Gen: Appears be in no acute distress HEENT: NCAT, Moist mucosa. Pulmonary: Vesicular breath sounds, fair air entry CVS: Normal S1-S2 Abdomen: BS+, Soft, Nontender Extremities: Warm well perfused; left foot warm tender in hyperemic; no fluctuance; range of motion noted at the ankle secondary to the pain; redness extending into the lower part of the leg. Neuro: Alert and awake. Results Labs CBC and Chem 7: 08/11/21 17:40 08/11/21 17:40 Labs: Laboratory Results - last 24 hr 08/11/21 08/11/21 08/11/21 17:40 17:40 17:40 MCV 89.3 MCH 29.5 MCHC 33.0 RDW 13.6 Plt Count 358 MPV 9.4 Immature Gran % (Auto) 0.3 Neut % (Auto) 66.2 Lymph % (Auto) 19.4 L [place] % (Auto) 7.9 Eos % (Auto) 6.0 H Baso % (Auto) 0.2 Lymph # (Auto) 1.8 [place] # (Auto) 0.7 Eos # (Auto) 0.6 H Baso # (Auto) 0.0 Abs Immat Gran (auto) 0.03 Absolute Neuts (auto) 6.2 Absolute Nucleated RBC 0.000 Nucleated RBC % (auto) 0.0 ESR 43 H Anion Gap 11 L Estim Creat Clear Calc 110.7 Estimated GFR > 60 Random Glucose 95 Lactic Acid Calcium 8.4 Total Bilirubin 0.2 AST 19 ALT 24 Alkaline Phosphatase 90 C-Reactive Protein 8.61 H B-Natriuretic Peptide Total Protein 6.6 Albumin 3.4 L 08/11/21 08/11/21 17:40 17:40 MCV MCH MCHC RDW Plt Count MPV Immature Gran % (Auto) Neut % (Auto) Lymph % (Auto) [place] % (Auto) Eos % (Auto) Baso % (Auto) Lymph # (Auto) [place] # (Auto) Eos # (Auto) Baso # (Auto) Abs Immat Gran (auto) Absolute Neuts (auto) Absolute Nucleated RBC Nucleated RBC % (auto) ESR Anion Gap Estim Creat Clear Calc Estimated GFR Random Glucose Lactic Acid 1.0 Calcium Total Bilirubin AST ALT Alkaline Phosphatase C-Reactive Protein B-Natriuretic Peptide 83 Total Protein Albumin Imaging Radiologist's Impressions: Impressions Foot X-Ray 08/11/21 16:52 IMPRESSION: No acute bony finding left tib-fib, left foot. Tibia/Fibula X-Ray 08/11/21 16:52 IMPRESSION: No acute bony finding left tib-fib, left foot. Venous Duplex 08/11/21 16:52 IMPRESSION: No DVT demonstrated in the bilateral lower extremity. Groin nodes are noted. Correlation recommended clinically Assessment and Plan 35-year-old male with the past medical history depression, opiate abuse, cocaine abuse, tobacco dependence chief complaint of left foot pain redness and swelling. Left foot cellulitis: Patient denies any trauma or injection into the foot. Continue IV vancomycin. Ultrasound negative for any blood clots X-ray showed no evidence of osteomyelitis Polysubstance abuse/cocaine abuse/heroin abuse: Patient denies any IV use. Reports he usually snorts. Patient was on Suboxone; reports he has not been taking it for a week or 2. Monitor on COWS protocol. Addiction Medicine consult Clonidine p.r.n. Patient on oxycodone for pain History of depression: Patient had recent admission to the psychiatric for suicide ideations. Currently denies any complaints. Continue to monitor. Diet: Regular diet DVT prophylaxis: Subcu heparin Code status: Full code Quality Stroke Does the patient have a stroke diagnosis?: No VTE Prior VTE?: No VTE Risk Level:: Medical - moderate - high VTE Device Contraindication: Treatment Not Indicated VTE Drug Contraindication: N/A - Med Ordered
--- NOTE | 2021-08-11 20:33 | PHA.PROG ---
Admission Date/Time: August 11, 2021 20:02 Indication: Cellulitis Weight in k.503 kg Serum Creatinine - Last 168 Hours 08/11/21 17:40 Creatinine 0.82 Estimated CrCl and GFR - Last 168 Hours 08/11/21 17:40 Estim Creat Clear Calc 110.7 Estimated GFR > 60 Vancomycin Loading Dose: 1250 mg Current Vancomycin Dosing Regimen: 1000 mg Q12H Date and Time for next Vancomycin Level to be drawn: 08/13 @ 0800 Pharmacist Comments on Vancomycin Plan: [place] 1250 mg on 08/11 @ 2100 then continue with 1000 mg Q12H om 08/12 @ 0900 Expected AUC of 472 with a trough on 13.7 Will monitoring SCR daily and adjust accordingly Abbi Womack PharmD Vancomycin dosing will take advantage of [employer] as a clinical decision support tool that uses Bayesian modeling to calculate individual patient's pharmacokinetic parameters and forecast the patient's drug concentration time course with the target goal AUC 24 range of 400 - 600 mg/L/hr.
[2021-08-11 21:09] VITALS: BP 140/65; PULSE 66; PULSE 73; RESP 17; O2SAT 99
--- NOTE | 2021-08-11 21:09 | PHA.MEDREC ---
Pharmacy Consult ? Medication Reconciliation Pharmacy has completed the medication reconciliation. Report using suboxone, patient did not clarify how many films he uses daily. Latest film for suboxone was 8mg/2mg use 3 films daily on 07/06/2021 for 4 days supply. Patient is not adherent. Abbi Womack, PharmD
--- NOTE | 2021-08-11 21:15 | PC.NURSE ---
Pt without PIV access, this RN informs pt this RN needs to obtain PIV access. Pt refuses. Pt educated on reasons for PIV, pt states no, not now. Pt requesting dude, leave me alone man.
--- NOTE | 2021-08-11 21:21 | PC.NURSE ---
Dr Ramires made aware of pt's refusal of PIV placement. Keyla to bedside, educates pt. Pt agreeable to PIV establishment if he receives oxycodone at this time.
[2021-08-11] MEDS: Piperacillin Sodium/Tazobactam 3.375 GM in 0.9 % Sodium Chloride 50 ML IV (21:39)
[2021-08-11] MEDS: oxyCODONE HCl Immed Release 5 MG TABLET PO (21:39)
[2021-08-11] MEDS: vancomycin HCL 1,250 MG in 0.9 % Sodium Chloride 250 ML 166.67 MG IV (22:22)
[2021-08-11 23:33] LABS: COVID-19 Test Negative (Negative)
[2021-08-11] MEDS: Dextrose 5 % and 0.45 % NaCl 1,000 ML 100 ML IVCONT (23:51)
[2021-08-12] VITALS (7 sets, daily range): BP systolic 96–151; BP diastolic 55–66; PULSE 51–68; RESP 18–24; TEMP 35.5–37; O2SAT 95–99; BMI 22.8
[2021-08-12] MEDS: 0.9 % Sodium Chloride Flush 3 ML SYRINGE IVFLUSH ×2 (08:39→21:10)
[2021-08-12] MEDS: vancomycin HCL 1,000 MG in 0.9 % Sodium Chloride 250 ML 270 MG IV ×2 (08:39→21:09)
--- NOTE | 2021-08-12 09:09 | P.PNIM_ITS ---
Subjective Subjective Date of Service: 08/12/21 Interval History: feels dope-sick c/o L foot pain and limited flexion of toes on that side denies injecting into L foot Review of Systems Review of Systems: Yes all other systems are reviewed and are negative Physical Exam Vital Signs: Vital Signs: Last Vital Signs Temp 96.8 F 08/12/21 08:00 Pulse 65 08/12/21 08:00 Resp 18 08/12/21 08:00 BP 122/64 08/12/21 08:00 Pulse Ox 95 08/12/21 08:00 Body Mass Index 22.8 Gen: in no acute distress HEENT: sclera anicteric, moist mucus membranes Neck: supple Lungs: clear to auscultation bilaterally Heart: regular rate and rhythm, no murmurs Abd: soft, non-tender, non-distended Ext: extensive erythema of dorsum of L midfoot extending to lateral MTP joints Skin: warm/well-perfused Neuro: alert and oriented x3, no focal findings Psych: restricted affect Objective Data Active Medications Acetaminophen (Acetaminophen 325 Mg Tablet) 650 mg PO Q6H PRN PRN Reason: Pain, Mild (Pain Scale 1-3) Clonidine HCl (Clonidine Hcl 0.1 Mg Tablet) 0.1 mg PO BID PRN; Protocol PRN Reason: anxiety/restlessness Heparin Sodium (Porcine) (Heparin Sodium,Porcine 5,000 Unit/Ml Vial) 5,000 unit SUBCUT Q8H [facility] Last Admin: 08/12/21 04:30 Dose: Not Given Documented by: KARMA Non-Admin Reason: Patient Refused Dextrose/Sodium Chloride (D51/2ns) 1,000 mls @ 100 mls/hr IVCONT .Q10H [facility] Last Admin: 08/12/21 06:14 Dose: Not Given Documented by: KARMA Non-Admin Reason: IV Running Vancomycin HCl 1,000 mg/ (Sodium Chloride) 270 mls @ 270 mls/hr IV Q12H [facility] Last Admin: 08/12/21 08:39 Dose: 270 mls/hr Documented by: YURIY Melatonin (Melatonin 3 Mg Tablet) 6 mg PO BEDTIME PRN PRN Reason: Insomnia Naloxone HCl (Naloxone Hcl 0.4 Mg/Ml Vial) 0.1 mg IVPUSH Q2M PRN PRN Reason: Respiratory Rate < 10 Oxycodone HCl (Oxycodone Hcl Immed Release 5 Mg Tablet) 5 mg PO Q6H PRN PRN Reason: Pain, Severe (Pain Scale 7-10) Last Admin: 08/11/21 21:39 Dose: 5 mg Documented by: ALFA Pharmacy Consult (Consult Rx Vancomycin Dosing) 1 each MISCELLANE DAILY PRN PRN Reason: Consult order Pharmacy Consult (Consult Rx Perform Med Rec) 1 each MISCELLANE ONCE PRN PRN Reason: Consult order Senna (Sennosides 8.6 Mg Tablet) 17.2 mg PO BEDTIME PRN PRN Reason: Constipation Sodium Chloride (0.9 % Sodium Chloride Flush 3 Ml Syringe) 3 ml IVFLUSH QSHIFT [facility] Last Admin: 08/12/21 08:39 Dose: 3 ml Documented by: YURIY Labs CBC & Chem 7: 08/11/21 17:40 08/11/21 17:40 Labs: Laboratory Results - last 24 hr 08/11/21 08/11/21 08/11/21 17:40 17:40 17:40 MCV 89.3 MCH 29.5 MCHC 33.0 RDW 13.6 Plt Count 358 MPV 9.4 Immature Gran % (Auto) 0.3 Neut % (Auto) 66.2 Lymph % (Auto) 19.[address] [place] % (Auto) 7.9 Eos % (Auto) 6.0 H Baso % (Auto) 0.2 Lymph # (Auto) 1.8 [place] # (Auto) 0.7 Eos # (Auto) 0.6 H Baso # (Auto) 0.0 Abs Immat Gran (auto) 0.03 Absolute Neuts (auto) 6.2 Absolute Nucleated RBC 0.000 Nucleated RBC % (auto) 0.0 ESR 43 H Anion Gap 11 L Estim Creat Clear Calc 110.7 Estimated GFR > 60 Random Glucose 95 Lactic Acid Calcium 8.4 Total Bilirubin 0.2 AST 19 ALT 24 Alkaline Phosphatase 90 C-Reactive Protein 8.61 H B-Natriuretic Peptide Total Protein 6.6 Albumin 3.4 L COVID-19 ([facility]) COVID-19 Clin Com 08/11/21 08/11/21 08/11/21 17:40 17:40 23:11 MCV MCH MCHC RDW Plt Count MPV Immature Gran % (Auto) Neut % (Auto) Lymph % (Auto) [place] % (Auto) Eos % (Auto) Baso % (Auto) Lymph # (Auto) [place] # (Auto) Eos # (Auto) Baso # (Auto) Abs Immat Gran (auto) Absolute Neuts (auto) Absolute Nucleated RBC Nucleated RBC % (auto) ESR Anion Gap Estim Creat Clear Calc Estimated GFR Random Glucose Lactic Acid 1.0 Calcium Total Bilirubin AST ALT Alkaline Phosphatase C-Reactive Protein B-Natriuretic Peptide 83 Total Protein Albumin COVID-19 ([facility]) Negative COVID-19 Clin Com See Note Impressions Foot X-Ray 08/11/21 16:52 IMPRESSION: No acute bony finding left tib-fib, left foot. Tibia/Fibula X-Ray 08/11/21 16:52 IMPRESSION: No acute bony finding left tib-fib, left foot. Venous Duplex 08/11/21 16:52 IMPRESSION: No DVT demonstrated in the bilateral lower extremity. Groin nodes are noted. Correlation recommended clinically Assessment and Plan (1) Cellulitis: Status: Acute Assessment and Plan: 35-year-old male with the past medical history depression, opiate abuse, cocaine abuse, tobacco dependence chief complaint of left foot pain redness and swelling Left foot cellulitis:? Patient denies any trauma or injection into the foot. Continue IV vancomycin. Ultrasound negative for any blood clots X-ray showed no evidence of osteomyelitis Polysubstance abuse/cocaine abuse/heroin abuse:? Patient denies any IV use.? Reports he usually snorts.? Patient was on Suboxone; reports he has not been taking it for a week or 2. Monitor on COWS protocol. Addiction Medicine consult Clonidine p.r.n. Patient on oxycodone for pain History of depression:? Patient had recent admission to the psychiatric for suicide ideations.? Currently denies any complaints.? Continue to monitor. Diet:? Regular diet DVT prophylaxis:? Subcu heparin Code status:? Full code Assessment and Plan: hospital d#2 35yo M with substance abuse disorder admitted with L foot cellulitis # L foot cellulitis - cannot entirely exclude underlying septic arthritis or osteomyelitis around MTP joints so will order MRI - follow BCx and continue vancomycin d#2 - oxycodone prn pain # substance abuse disorder - was on Suboxone but stopped 2 wk ago; was actually sent in from detox center due to foot infeciton - prn clonidine - Addiciton Medicine + CARE Team consultations - screen HBV/HCV/HIV # VTE ppx - UFH Quality Stroke Does the patient have a stroke diagnosis?: No VTE Prior VTE?: No VTE Risk Level:: Medical - moderate - high VTE Device Contraindication: Treatment Not Indicated VTE Drug Contraindication: N/A - Med Ordered
[2021-08-12 09:44] LABS: MANUAL DIFF FLAG NO
[2021-08-12 09:47] LABS: Basophils Percent Auto 0.2 % (0-2); Eosinophils Absolute Auto 0.1 X10*3/uL (0.0-0.4); Eosinophils Percent Auto 0.9 % (0-4); Hematocrit 30.6 % (42-52); Hemoglobin 10.3 g/dl (14.0-18.0); Imm Gran Abs Auto 0.03 X10*3/uL (0.00-0.03); Imm Gran Pct Auto 0.3 % (0.0-0.4); Lymphocytes Absolute Auto 1.2 X10*3/uL (1.2-4.9); Lymphocytes Percent Auto 13.7 % (20-40); Mean Corpuscular HGB Conc 33.7 g/dl (31.0-36.0); Mean Corpuscular Hemoglobin 29.5 pg (27.0-33.0); Mean Corpuscular Volume 87.7 fL (80-98); Mean Platelet Volume 9.2 fL (9.4-12.4); Monocytes Absolute Auto 0.6 X10*3/uL (0.1-1.2); Monocytes Percent Auto 6.6 % (2-11); Neutrophils Absolute Auto 7.1 X10*3/uL (2.0-8.3); Neutrophils Percent Auto 78.3 % (45-73); Platelet Count 396 X10*3/uL (160-400); Red Blood Count 3.49 X10*6/uL (4.60-5.80); Red Cell Distribution Width 13.6 % (11.0-16.0); White Blood Count 9.1 X10*3/uL (4.8-10.8)
[2021-08-12 10:00] LABS: Anion Gap 11 (12-20); Blood Urea Nitrogen 10 mg/dL (9-16); Calcium 8.2 mg/dL (8.4-10.2); Carbon Dioxide 26 mmol/L (22-29); Chloride 105 mmol/L (96-108); Creatinine Clr Calc Pharmacy 122.6; Estimated Glomerular Filt Rate > 60; Glucose Random 102 mg/dL (60-115); Potassium 3.3 mmol/L (3.3-5.1); Sodium 139 mmol/L (135-145)
[2021-08-12 10:28] LABS: Estimated Average Glucose 103 mg/dL; Hemoglobin A1c % 5.2 %
[2021-08-12] MEDS: Buprenorphine/Naloxone 4/1 mg FILM 1 FILM SUBLINGUAL ×2 (12:19→14:56)
[2021-08-12] MEDS: cloNIDine HCL 0.1 MG TABLET PO (12:19)
--- NOTE | 2021-08-12 14:56 | MHC.CM.PN ---
Male 35 DX Cellulitis Patient is Sick and uncomfortable during this interview. He had recently vomited. He was administered Suboxone today.He is homeless. He is asking to be discharged to Detox. He stated that he was trying to get into detox; but he was declined r/t foot infection. He will need a Careteam consult. DP per ferny CM will follow
--- NOTE | 2021-08-12 18:26 | PM.EVENT ---
Event Note Date of Service: 08/12/21 Event Note: Brief addiction note: Patient seen while he was in acute withdrawal, visibly uncomfortable, sweating, reporting nausea loose stools, anxiety, restlessness. Started on Suboxone 4 mg with good effect then given an additional 4 mg. Patient rehab evaluated and reported that he was feeling much better. Plan: -additional 8 mg of Suboxone tonight (patient had been on 8 mg b.i.d. outpatient) -8 mg b.i.d. ordered on going -full note to follow
[2021-08-12] MEDS: Buprenorphine/Naloxone 8/2 mg FILM 1 FILM SUBLINGUAL (21:10)
[2021-08-13] VITALS (8 sets, daily range): BP systolic 126–140; BP diastolic 67–70; PULSE 50–70; RESP 18; TEMP 36.4–36.9; O2SAT 96–98
[2021-08-13] MEDS: 0.9 % Sodium Chloride Flush 3 ML SYRINGE IVFLUSH ×3 (04:08→16:12)
[2021-08-13 08:38] LABS: Vancomycin Trough 6.1 mcg/mL (10.0-20.0)
[2021-08-13] MEDS: Buprenorphine/Naloxone 8/2 mg FILM 1 FILM SUBLINGUAL ×2 (08:46→20:33)
--- NOTE | 2021-08-13 09:05 | HE.PHANOTE ---
Vacnomycin dosing Addendeum Previously on 9823q09 but received a trough of 6.1 08/13 @ 0806. Based on this level the dose will be adjusted to 3450p21 for a new AUC of 450mg/l with predicted trough of 10.9mg/l.
[2021-08-13 09:07] LABS: Estimated Glomerular Filt Rate > 60
--- NOTE | 2021-08-13 09:26 | HO.PM.IMPN ---
Subjective Subjective Date of Service: 08/13/21 Interval History: withdrawal symptoms improved L foot improved refused MRI yesterday but willing to do today Review of Systems Review of Systems: Yes all other systems are reviewed and are negative Physical Exam Vital Signs: Vital Signs: Last Vital Signs Temp 98.1 F 08/13/21 07:40 Pulse 50 08/13/21 07:40 Resp 18 08/13/21 07:40 BP 126/69 08/13/21 07:40 Pulse Ox 98 08/13/21 07:40 Body Mass Index 22.8 Gen: in no acute distress HEENT: sclera anicteric, moist mucus membranes Neck: supple Lungs: clear to auscultation bilaterally Heart: regular rate and rhythm, no murmurs Abd: soft, non-tender, non-distended Ext: erythema of dorsum of L midfoot extending to lateral MTP joints Skin: warm/well-perfused Neuro: alert and oriented x3, no focal findings Psych: restricted affect Objective Data Active Medications Acetaminophen (Acetaminophen 325 Mg Tablet) 650 mg PO Q6H PRN PRN Reason: Pain, Mild (Pain Scale 1-3) Buprenorphine/Naloxone (Buprenorphine/Naloxone 8/2 Mg Film) 1 film SUBLINGUAL BID [facility] Last Admin: 08/13/21 08:46 Dose: 1 film Documented by: YURIY Clonidine HCl (Clonidine Hcl 0.1 Mg Tablet) 0.1 mg PO TID PRN; Protocol PRN Reason: anxiety/restlessness Last Admin: 08/12/21 12:19 Dose: 0.1 mg Documented by: CHRISTIAN Heparin Sodium (Porcine) (Heparin Sodium,Porcine 5,000 Unit/Ml Vial) 5,000 unit SUBCUT Q8H [facility] Last Admin: 08/13/21 04:10 Dose: Not Given Documented by: JOE Non-Admin Reason: Patient Refused Vancomycin HCl 1,250 mg/ (Sodium Chloride) 250 mls @ 166.667 mls/hr IV Q12H [facility] Melatonin (Melatonin 3 Mg Tablet) 6 mg PO BEDTIME PRN PRN Reason: Insomnia Naloxone HCl (Naloxone Hcl 0.4 Mg/Ml Vial) 0.1 mg IVPUSH Q2M PRN PRN Reason: Respiratory Rate < 10 Ondansetron HCl (Ondansetron Hcl 4 Mg/2 Ml Vial) 4 mg IVPUSH Q8H PRN PRN Reason: nausea/vomiting Pharmacy Consult (Consult Rx Vancomycin Dosing) 1 each MISCELLANE DAILY PRN PRN Reason: Consult order Pharmacy Consult (Consult Rx Perform Med Rec) 1 each MISCELLANE ONCE PRN PRN Reason: Consult order Senna (Sennosides 8.6 Mg Tablet) 17.2 mg PO BEDTIME PRN PRN Reason: Constipation Sodium Chloride (0.9 % Sodium Chloride Flush 3 Ml Syringe) 3 ml IVFLUSH QSHIFT [facility] Last Admin: 08/13/21 08:46 Dose: 3 ml Documented by: YURIY Labs CBC & Chem 7: 08/12/21 09:31 08/13/21 08:06 Labs: Laboratory Results - last 24 hr 08/12/21 08/12/21 08/12/21 09:31 09:31 09:32 MCV 87.7 MCH 29.5 MCHC 33.7 RDW 13.6 Plt Count 396 MPV 9.2 L Immature Gran % (Auto) 0.3 Neut % (Auto) 78.3 H Lymph % (Auto) 13.7 L [place] % (Auto) 6.6 Eos % (Auto) 0.9 Baso % (Auto) 0.2 Lymph # (Auto) 1.2 [place] # (Auto) 0.6 Eos # (Auto) 0.1 Baso # (Auto) 0.0 Abs Immat Gran (auto) 0.03 Absolute Neuts (auto) 7.1 Absolute Nucleated RBC 0.000 Nucleated RBC % (auto) 0.0 Anion Gap 11 L Estim Creat Clear Calc 122.6 Estimated GFR > 60 Random Glucose 102 Estimat Average Glucose 103 Hemoglobin A1c % 5.2 Calcium 8.2 L Vancomycin Trough 08/13/21 08/13/21 08:06 08:06 MCV MCH MCHC RDW Plt Count MPV Immature Gran % (Auto) Neut % (Auto) Lymph % (Auto) [place] % (Auto) Eos % (Auto) Baso % (Auto) Lymph # (Auto) [place] # (Auto) Eos # (Auto) Baso # (Auto) Abs Immat Gran (auto) Absolute Neuts (auto) Absolute Nucleated RBC Nucleated RBC % (auto) Anion Gap Estim Creat Clear Calc 118.0 Estimated GFR > 60 Random Glucose Estimat Average Glucose Hemoglobin A1c % Calcium Vancomycin Trough 6.1 L Microbiology Microbiology Results: Microbiology 08/11/21 17:40 Blood Culture - Preliminary Blood - Venous No growth after 24 hours. 08/11/21 17:48 Blood Culture - Preliminary Blood - Venous Prelim: GPC Gram Stain only Assessment and Plan (1) Cellulitis: Status: Acute Assessment and Plan: hospital d#3 35yo M with opioid use disorder admitted with L foot cellulitis # L foot cellulitis - cannot entirely exclude underlying septic arthritis or osteomyelitis around MTP joints; MRI ordered - /2 BCx from 08/11 positive for GPCs in clusters- follow results- ?contaminant - continue vancomycin- trough subtherapeutic so dose increased - oxycodone prn pain # opioid abuse disorder # cocaine abuse - was on Suboxone but stopped 2 wk ago; was actually sent in from detox center due to foot infection - prn clonidine - Addiction Medicine consulted and Suboxone was reinitiated - screen HBV/HCV/HIV # VTE ppx - LMWH # dispo - requests substance abuse treatment program Quality Stroke Does the patient have a stroke diagnosis?: No VTE Prior VTE?: No VTE Risk Level:: Medical - moderate - high VTE Device Contraindication: Treatment Not Indicated VTE Drug Contraindication: N/A - Med Ordered
[2021-08-13 09:41] LABS: C Reactive Protein 3.24 mg/dL (< or = 0.50)
[2021-08-13] MEDS: vancomycin HCL 1,250 MG in 0.9 % Sodium Chloride 250 ML 166.67 MG IV ×2 (09:50→21:47)
[2021-08-13] MEDS: cloNIDine HCL 0.1 MG TABLET PO ×2 (09:50→20:32)
--- NOTE | 2021-08-13 10:02 | MHC.RECOVSUP ---
Recovery Support note: Patient is a 35 year old Japanese speaking male who presented to [facility] ED due to an infection. This typewriters functional tester met with patient to discuss his recovery. Patient reports he was trying to get into treatment when he was sent to the hospital due to his infection. Patient was started on Suboxone and reports feeling withdrawal symptoms however would not specify what exactly he is feeling, stating just withdrawal. Patient reports he would like to continue with treatment after discharge. Discussed CSS with patient. Patient reports he is willing to go anywhere for treatment. Explained to patient that a bed may not be available when he is ready for discharge. Patient reports he does not have anywhere to go to await a bed. This typewriters functional tester will refer patient to CSS when he is closer to discharge. Discussed case with Jessica Dougherty NP and patient's RN, Yaquelin
--- NOTE | 2021-08-13 10:37 | HO.ADDICT_ITS ---
History of Present Illness Date of Service: 08/12/2021 Chief Complaint: cellulitis Reason for Consult: opioid use disorder Requesting physician: Terese Bradford Discussed with referring provider: Yes Sources of Information: patient interviewed and chart reviewed HPI Narrative: Patient is a 35 year old male currently medically admitted with cellulitis to the foot. Consult requested to manage opioid withdrawal sx Patient seen in room 453, awake, alert, visibly uncomfortable and diaphoretic Reporting chills, body aches, nausea, loose stools, anxiety, restlessness Reports using 2-3 bundles QD Was recently on methadone. Was actually at [facility] and the transferred to [facility] due to cellulitis. Stated he wanted to restart suboxone . Last use reported as being 3 days prior to admission Past Psychiatric History: reported h/o intentional overdoses, h/o SI via hanging Review of Systems Review of Systems as reported in HPI Diagnostics Vital Signs (24Hr): Vital Signs - 24 hr 08/12/21 11:03 08/12/21 12:19 08/12/21 16:00 Temperature 96 F L 98.6 F Pulse Rate 65 65 56 Respiratory Rate 18 20 Blood Pressure 151/66 H 151/66 H 96/55 L Pulse Oximetry 99 99 08/12/21 23:29 08/13/21 07:40 08/13/21 09:50 Temperature 97.6 F 98.1 F Pulse Rate 60 50 50 Respiratory Rate 18 18 Blood Pressure 112/60 126/69 126/69 Pulse Oximetry 99 98 Body Mass Index 22.8 Labs Results: 08/12/21 09:31 08/13/21 08:06 Labs: Laboratory Results - last 48 hr 08/11/21 08/11/21 08/11/21 17:40 17:40 17:40 WBC 9.4 RBC 3.46 L D Hgb 10.2 L Hct 30.9 L D MCV 89.3 MCH 29.5 MCHC 33.0 RDW 13.6 Plt Count 358 MPV 9.4 Immature Gran % (Auto) 0.3 Neut % (Auto) 66.2 Lymph % (Auto) 19.4 L [place] % (Auto) 7.9 Eos % (Auto) 6.0 H Baso % (Auto) 0.2 Lymph # (Auto) 1.8 [place] # (Auto) 0.7 Eos # (Auto) 0.6 H Baso # (Auto) 0.0 Abs Immat Gran (auto) 0.03 Absolute Neuts (auto) 6.2 Absolute Nucleated RBC 0.000 Nucleated RBC % (auto) 0.0 ESR 43 H Sodium 138 Potassium 3.4 Chloride 102 Carbon Dioxide 28 Anion Gap 11 L BUN 11 Creatinine 0.82 Estim Creat Clear Calc 110.7 Estimated GFR > 60 Random Glucose 95 Estimat Average Glucose Hemoglobin A1c % Lactic Acid Calcium 8.4 Total Bilirubin 0.2 AST 19 ALT 24 Alkaline Phosphatase 90 C-Reactive Protein 8.61 H B-Natriuretic Peptide Total Protein 6.6 Albumin 3.4 L Vancomycin Trough COVID-19 ([facility]) COVID-19 Clin Com 08/11/21 08/11/21 08/11/21 17:40 17:40 23:11 WBC RBC Hgb Hct MCV MCH MCHC RDW Plt Count MPV Immature Gran % (Auto) Neut % (Auto) Lymph % (Auto) [place] % (Auto) Eos % (Auto) Baso % (Auto) Lymph # (Auto) [place] # (Auto) Eos # (Auto) Baso # (Auto) Abs Immat Gran (auto) Absolute Neuts (auto) Absolute Nucleated RBC Nucleated RBC % (auto) ESR Sodium Potassium Chloride Carbon Dioxide Anion Gap BUN Creatinine Estim Creat Clear Calc Estimated GFR Random Glucose Estimat Average Glucose Hemoglobin A1c % Lactic Acid 1.0 Calcium Total Bilirubin AST ALT Alkaline Phosphatase C-Reactive Protein B-Natriuretic Peptide 83 Total Protein Albumin Vancomycin Trough COVID-19 ([facility]) Negative COVID-19 Clin Com See Note 08/12/21 08/12/21 08/12/21 09:31 09:31 09:32 WBC 9.1 RBC 3.49 L Hgb 10.3 L Hct 30.6 L MCV 87.7 MCH 29.5 MCHC 33.7 RDW 13.6 Plt Count 396 MPV 9.2 L Immature Gran % (Auto) 0.3 Neut % (Auto) 78.3 H Lymph % (Auto) 13.7 L [place] % (Auto) 6.6 Eos % (Auto) 0.9 Baso % (Auto) 0.2 Lymph # (Auto) 1.2 [place] # (Auto) 0.6 Eos # (Auto) 0.1 Baso # (Auto) 0.0 Abs Immat Gran (auto) 0.03 Absolute Neuts (auto) 7.1 Absolute Nucleated RBC 0.000 Nucleated RBC % (auto) 0.0 ESR Sodium 139 Potassium 3.3 Chloride 105 Carbon Dioxide 26 Anion Gap 11 L BUN 10 Creatinine 0.77 Estim Creat Clear Calc 122.6 Estimated GFR > 60 Random Glucose 102 Estimat Average Glucose 103 Hemoglobin A1c % 5.2 Lactic Acid Calcium 8.2 L Total Bilirubin AST ALT Alkaline Phosphatase C-Reactive Protein B-Natriuretic Peptide Total Protein Albumin Vancomycin Trough COVID-19 ([facility]) COVID-19 Clin Com 08/13/21 08/13/21 08:06 08:06 WBC RBC Hgb Hct MCV MCH MCHC RDW Plt Count MPV Immature Gran % (Auto) Neut % (Auto) Lymph % (Auto) [place] % (Auto) Eos % (Auto) Baso % (Auto) Lymph # (Auto) [place] # (Auto) Eos # (Auto) Baso # (Auto) Abs Immat Gran (auto) Absolute Neuts (auto) Absolute Nucleated RBC Nucleated RBC % (auto) ESR Sodium Potassium Chloride Carbon Dioxide Anion Gap BUN Creatinine 0.80 Estim Creat Clear Calc 118.0 Estimated GFR > 60 Random Glucose Estimat Average Glucose Hemoglobin A1c % Lactic Acid Calcium Total Bilirubin AST ALT Alkaline Phosphatase C-Reactive Protein 3.24 H B-Natriuretic Peptide Total Protein Albumin Vancomycin Trough 6.1 L COVID-19 ([facility]) COVID-19 Clin Com Imaging Radiology Impressions: ITS Impressions Foot X-Ray 08/11/21 16:52 IMPRESSION: No acute bony finding left tib-fib, left foot. Tibia/Fibula X-Ray 08/11/21 16:52 IMPRESSION: No acute bony finding left tib-fib, left foot. Venous Duplex 08/11/21 16:52 IMPRESSION: No DVT demonstrated in the bilateral lower extremity. Groin nodes are noted. Correlation recommended clinically Mental Status Exam Mental Status Exam Patient Appearance: Disheveled and Perspiring Patient Orientation: Person, Place, Time and Situation Patient Behavior: Appropriate, Restless and Anxious Mood Description: Anxious Affect Description: Anxious Thought Process: Intact Thought Content: positive for Intact Judgement: Fair Medications Medications Current Medications Acetaminophen (Acetaminophen 325 Mg Tablet) 650 mg PO Q6H PRN PRN Reason: Pain, Mild (Pain Scale 1-3) Buprenorphine/Naloxone (Buprenorphine/Naloxone 8/2 Mg Film) 1 film SUBLINGUAL BID [facility] Last Admin: 08/13/21 08:46 Dose: 1 film Documented by: Clonidine HCl (Clonidine Hcl 0.1 Mg Tablet) 0.1 mg PO TID PRN; Protocol PRN Reason: anxiety/restlessness Last Admin: 08/13/21 09:50 Dose: 0.1 mg Documented by: Enoxaparin Sodium (Enoxaparin Sodium 40 Mg/0.4 Ml Syringe) 40 mg SUBCUT Q24H [facility] Last Admin: 08/13/21 09:50 Dose: Not Given Documented by: Vancomycin HCl 1,250 mg/ (Sodium Chloride) 250 mls @ 166.667 mls/hr IV Q12H [facility] Last Admin: 08/13/21 09:50 Dose: 166.67 mls/hr Documented by: Melatonin (Melatonin 3 Mg Tablet) 6 mg PO BEDTIME PRN PRN Reason: Insomnia Naloxone HCl (Naloxone Hcl 0.4 Mg/Ml Vial) 0.1 mg IVPUSH Q2M PRN PRN Reason: Respiratory Rate < 10 Ondansetron HCl (Ondansetron Hcl 4 Mg/2 Ml Vial) 4 mg IVPUSH Q8H PRN PRN Reason: nausea/vomiting Pharmacy Consult (Consult Rx Vancomycin Dosing) 1 each MISCELLANE DAILY PRN PRN Reason: Consult order Pharmacy Consult (Consult Rx Perform Med Rec) 1 each MISCELLANE ONCE PRN PRN Reason: Consult order Senna (Sennosides 8.6 Mg Tablet) 17.2 mg PO BEDTIME PRN PRN Reason: Constipation Sodium Chloride (0.9 % Sodium Chloride Flush 3 Ml Syringe) 3 ml IVFLUSH QSHIFT [facility] Last Admin: 08/13/21 08:46 Dose: 3 ml Documented by: Allergies Allergies Allergy/AdvReac Type Severity Reaction Status Date / Time acetaminophen [From VICODIN] Allergy Unknown HIVES Verified 07/03/21 13:13 ITCHY THROAT From VICODIN Allergy Unknown HIVES Uncoded 07/29/20 18:08 ITCHY THROAT Assessment & Plan Assessment & Plan (1) Opioid use disorder, moderate, dependence: Status: Acute Code(s): F11.20 - Opioid dependence, uncomplicated Assessment and Plan: * patient was given (2) 4mg doses of suboxone with good effect. * Upon re-eval at the end of the day, patient much more comfortbale and reproting sx have much improved. * will order 8mg BID * recovery support team to follow during admission. Greater than 50% of the session was spent on counseling and/or coordination of care PMFSH Past Medical History Medical History (Updated 08/12/21 @ 00:35 by Darryl Amaya MD) Addiction to drug Substance abuse Social History Social History Household Members: Other Housing: Homeless Do you presently have visiting nurse or other home services: No Unable to assess alcohol history related to: Unknown Alcohol intake: unknown Patient Tobacco Use Status: Current everyday Tobacco user Tobacco use type: Cigarette Cigarette Packs Per Day: 1 Cigarettes Per Day: 20.0 e-Cigarette/Vaping Use: Never Used Second Hand Smoke Exposure: Yes Use of substances other than those prescribed or required for medical reasons: Yes Substance Use Type: Crack/Cocaine and Heroin Last Used Substance: Days (ago) Last Used Substance Other:: Sunday Currently Displaying Signs/Symptoms of Drug Intoxication Withdrawal: No Any prior treatment program specific to substance use: Yes (was at [facility] today) Advance Directives: No Advance Directives Information Provided: Yes Do you have thoughts of harming others: None Do you have a plan to hurt others: No Plan Recently lost weight without trying: No Nutrition Risks: No Nutritional Risk Poor oral hygiene: Yes service: No Current occupational status: unemployed Sexual orientation: Did not discuss.
[2021-08-14] VITALS: BP 115/71; PULSE 55; RESP 18; TEMP 36.4; O2SAT 98
[2021-08-14] MEDS: 0.9 % Sodium Chloride Flush 3 ML SYRINGE IVFLUSH ×3 (00:17→16:31)
[2021-08-14 07:34] VITALS: BP 114/68; PULSE 56; RESP 18; TEMP 36.3; O2SAT 99
[2021-08-14] MEDS: vancomycin HCL 1,250 MG in 0.9 % Sodium Chloride 250 ML 166.6 MG IV (09:09)
[2021-08-14] MEDS: cloNIDine HCL 0.1 MG TABLET PO ×2 (09:09→16:30)
[2021-08-14] MEDS: Buprenorphine/Naloxone 8/2 mg FILM 1 FILM SUBLINGUAL ×2 (09:09→21:09)
[2021-08-14 09:51] LABS: Creatinine Clr Calc Pharmacy 116.5; Estimated Glomerular Filt Rate > 60
--- NOTE | 2021-08-14 11:19 | HO.PM.IMPN ---
Subjective Subjective Date of Service: 08/14/21 Interval History: No fever L foot improved Coag-neg staph from BCx Review of Systems Review of Systems: Yes all other systems are reviewed and are negative Physical Exam Vital Signs: Vital Signs: Last Vital Signs Temp 97.4 F 08/14/21 07:34 Pulse 56 08/14/21 07:34 Resp 18 08/14/21 07:34 BP 114/68 08/14/21 07:34 Pulse Ox 99 08/14/21 07:34 Body Mass Index 22.8 Gen: in no acute distress HEENT: sclera anicteric, moist mucus membranes Neck: supple Lungs: clear to auscultation bilaterally Heart: regular rate and rhythm, no murmurs Abd: soft, non-tender, non-distended Ext: erythema of dorsum of L midfoot extending to lateral MTP joints improved, no fluctuance Skin: warm/well-perfused Neuro: alert and oriented x3, no focal findings Psych: restricted affect Objective Data Active Medications Acetaminophen (Acetaminophen 325 Mg Tablet) 650 mg PO Q6H PRN PRN Reason: Pain, Mild (Pain Scale 1-3) Buprenorphine/Naloxone (Buprenorphine/Naloxone 8/2 Mg Film) 1 film SUBLINGUAL BID [facility] Last Admin: 08/14/21 09:09 Dose: 1 film Documented by: THOMAS Clonidine HCl (Clonidine Hcl 0.1 Mg Tablet) 0.1 mg PO TID PRN; Protocol PRN Reason: anxiety/restlessness Last Admin: 08/14/21 09:09 Dose: 0.1 mg Documented by: THOMAS Enoxaparin Sodium (Enoxaparin Sodium 40 Mg/0.4 Ml Syringe) 40 mg SUBCUT Q24H [facility] Last Admin: 08/14/21 09:10 Dose: Not Given Documented by: THOMAS Non-Admin Reason: Patient Refused Vancomycin HCl 1,250 mg/ (Sodium Chloride) 250 mls @ 166.667 mls/hr IV Q12H [facility] Last Infusion: 08/14/21 10:55 Dose: 166.66 mls/hr Documented by: ALTHEA Melatonin (Melatonin 3 Mg Tablet) 6 mg PO BEDTIME PRN PRN Reason: Insomnia Naloxone HCl (Naloxone Hcl 0.4 Mg/Ml Vial) 0.1 mg IVPUSH Q2M PRN PRN Reason: Respiratory Rate < 10 Ondansetron HCl (Ondansetron Hcl 4 Mg/2 Ml Vial) 4 mg IVPUSH Q8H PRN PRN Reason: nausea/vomiting Pharmacy Consult (Consult Rx Vancomycin Dosing) 1 each MISCELLANE DAILY PRN PRN Reason: Consult order Pharmacy Consult (Consult Rx Perform Med Rec) 1 each MISCELLANE ONCE PRN PRN Reason: Consult order Senna (Sennosides 8.6 Mg Tablet) 17.2 mg PO BEDTIME PRN PRN Reason: Constipation Sodium Chloride (0.9 % Sodium Chloride Flush 3 Ml Syringe) 3 ml IVFLUSH QSHIFT [facility] Last Admin: 08/14/21 09:10 Dose: 3 ml Documented by: THOMAS Labs CBC & Chem 7: 08/12/21 09:31 08/14/21 09:26 Labs: Laboratory Results - last 24 hr 08/14/21 09:26 Estim Creat Clear Calc 116.5 Estimated GFR > 60 Microbiology Microbiology Results: Microbiology 08/11/21 17:48 Blood Culture - Final Blood - Venous Coag negative Staphylococcus 08/11/21 17:40 Blood Culture - Preliminary Blood - Venous No growth after 48 hours. Assessment and Plan (1) Cellulitis: Status: Acute Assessment and Plan: hospital d#4 35yo M with opioid use disorder admitted with L foot cellulitis # L foot cellulitis - cannot entirely exclude underlying septic arthritis or osteomyelitis around MTP joints; MRI pending - 1/2 BCx from 08/11 positive for coag-neg staph = contaminant - continue vancomycin- trough subtherapeutic so dose increased - oxycodone prn pain # opioid abuse disorder # cocaine abuse - was on Suboxone but stopped 2 wk ago; was actually sent in from detox center due to foot infection - prn clonidine - Addiction Medicine consulted and Suboxone was reinitiated, on 8/2 mg bid - HBV/HCV/HIV screen pending # VTE ppx - LMWH # dispo - requests clinical stabilization services program- CARE Team consult placed Quality Stroke Does the patient have a stroke diagnosis?: No VTE Prior VTE?: No VTE Risk Level:: Medical - moderate - high VTE Device Contraindication: Treatment Not Indicated VTE Drug Contraindication: N/A - Med Ordered
[2021-08-14 15:37] VITALS: BP 134/70; PULSE 73; RESP 18; TEMP 36.7; O2SAT 98
[2021-08-14] MEDS: vancomycin HCL 1,250 MG in 0.9 % Sodium Chloride 250 ML 166.66 MG IV (21:05)
[2021-08-14] MEDS: Acetaminophen 325 MG TABLET 650 MG PO (21:12)
[2021-08-14 23:48] VITALS: BP 125/69; PULSE 73; RESP 18; TEMP 36.6; O2SAT 96
[2021-08-15] VITALS: PULSE 65
[2021-08-15] MEDS: cloNIDine HCL 0.1 MG TABLET PO ×3 (00:37→17:11)
[2021-08-15] MEDS: 0.9 % Sodium Chloride Flush 3 ML SYRINGE IVFLUSH ×3 (00:45→16:10)
[2021-08-15 04:27] LABS: HBS Num1 120.24 mIU/mL (0-7.99); HBc Num1 0.12 S/CO (0.00-0.79); HIV AB/AG Nonreactive (Nonreactive); HIV Num 1 0.06 S/CO (0.00-0.99); Hepatitis B Core Antibody Nonreactive (Nonreactive); ~HepC Num1 0.14 S/CO (0.00-0.79); ~Hepatitis B Surface Antibody REACTIVE (Nonreactive); ~Hepatitis C Antibody Nonreactive (Nonreactive)
[2021-08-15 04:31] LABS: HBsAGNum1 0.15 S/CO (0.00-0.99); Hepatitis B Surface Antigen Negative (Negative)
[2021-08-15 07:33] VITALS: BP 122/76; PULSE 69; RESP 18; TEMP 36.9; O2SAT 98
[2021-08-15 09:01] LABS: Hematocrit 33.4 % (42-52); Hemoglobin 10.8 g/dl (14.0-18.0); Mean Corpuscular HGB Conc 32.3 g/dl (31.0-36.0); Mean Corpuscular Hemoglobin 29.3 pg (27.0-33.0); Mean Corpuscular Volume 90.5 fL (80-98); Mean Platelet Volume 8.6 fL (9.4-12.4); Platelet Count 414 X10*3/uL (160-400); Red Blood Count 3.69 X10*6/uL (4.60-5.80); Red Cell Distribution Width 13.5 % (11.0-16.0); White Blood Count 11.6 X10*3/uL (4.8-10.8)
[2021-08-15 09:17] LABS: Anion Gap 10 (12-20); Blood Urea Nitrogen 13 mg/dL (9-16); C Reactive Protein 1.75 mg/dL (< or = 0.50); Calcium 8.7 mg/dL (8.4-10.2); Carbon Dioxide 29 mmol/L (22-29); Chloride 105 mmol/L (96-108); Creatinine Clr Calc Pharmacy 119.5; Estimated Glomerular Filt Rate > 60; Glucose Random 102 mg/dL (60-115); Potassium 3.4 mmol/L (3.3-5.1); Sodium 141 mmol/L (135-145)
--- NOTE | 2021-08-15 09:39 | MHC.RECOVSUP ---
Recovery Support note: This sign writer hand discussed case with CM. At this time, it is still unclear if patient will be eligible for CSS after discharge. For CSS patient must be able to take his medications orally and ambulate without assistance. Recovery Support Team will continue to discuss case with CM as more information becomes available and patient will be referred to CSS if appropriate.
[2021-08-15] MEDS: vancomycin HCL 1,250 MG in 0.9 % Sodium Chloride 250 ML 166.66 MG IV ×2 (10:08→21:34)
[2021-08-15] MEDS: Buprenorphine/Naloxone 8/2 mg FILM 1 FILM SUBLINGUAL ×2 (10:09→21:34)
[2021-08-15 11:23] VITALS: BP 126/63; PULSE 76; RESP 16; TEMP 36.7; O2SAT 99
--- NOTE | 2021-08-15 11:32 | MHC.RECOVRN ---
T/w met with pt to f/u regarding Suboxone initiation. Pt reports 8 mg BID is beneficial, however, would like to increase to 16 mg in AM and 8 mg in PM. Pt reports this dose historically has been most beneficial. Per [facility], pts most recent prescription was 12 8 mg films for a 4 day supply (3 films daily), filled 07/06/21. Case discussed with Pam Rainey NP, who will meet with pt to evaluate for potential dose increase. Will continue to follow.
--- NOTE | 2021-08-15 11:44 | MHC.CM.PN ---
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 D/C PLAN: CSS FOR [facility] TX VS SNF FOR IV ABX, RECOVERY TEAM TO SET UP VS BLS FOR TRANSPORT
--- NOTE | 2021-08-15 14:39 | P.PNIM_ITS ---
Subjective Subjective Date of Service: 08/15/21 Interval History: to MRI today L foot improved still c/o withdrawal symptoms Review of Systems Review of Systems: Yes all other systems are reviewed and are negative Physical Exam Vital Signs: Vital Signs: Last Vital Signs Temp 98.1 F 08/15/21 11:23 Pulse 76 08/15/21 11:23 Resp 16 08/15/21 11:23 BP 126/63 08/15/21 11:23 Pulse Ox 99 08/15/21 11:23 Body Mass Index 22.8 Gen: in no acute distress HEENT: sclera anicteric, moist mucus membranes Neck: supple Lungs: clear to auscultation bilaterally Heart: regular rate and rhythm, no murmurs Abd: soft, non-tender, non-distended Ext: erythema of dorsum of L midfoot extending to lateral MTP joints improved, no fluctuance Skin: warm/well-perfused Neuro: alert and oriented x3, no focal findings Psych: restricted affect Objective Data Active Medications Acetaminophen (Acetaminophen 325 Mg Tablet) 650 mg PO Q6H PRN PRN Reason: Pain, Mild (Pain Scale 1-3) Last Admin: 08/14/21 21:12 Dose: 650 mg Documented by: GT Buprenorphine/Naloxone (Buprenorphine/Naloxone 8/2 Mg Film) 1 film SUBLINGUAL BID [facility] Last Admin: 08/15/21 10:09 Dose: 1 film Documented by: ALEISHA Clonidine HCl (Clonidine Hcl 0.1 Mg Tablet) 0.1 mg PO TID PRN; Protocol PRN Reason: anxiety/restlessness Last Admin: 08/15/21 10:09 Dose: 0.1 mg Documented by: ALEISHA Enoxaparin Sodium (Enoxaparin Sodium 40 Mg/0.4 Ml Syringe) 40 mg SUBCUT Q24H [facility] Last Admin: 08/15/21 10:09 Dose: Not Given Documented by: ALEISHA Non-Admin Reason: Patient Refused Vancomycin HCl 1,250 mg/ (Sodium Chloride) 250 mls @ 166.667 mls/hr IV Q12H [facility] Last Infusion: 08/15/21 11:39 Dose: 0 mls/hr Documented by: ALEISHA Melatonin (Melatonin 3 Mg Tablet) 6 mg PO BEDTIME PRN PRN Reason: Insomnia Naloxone HCl (Naloxone Hcl 0.4 Mg/Ml Vial) 0.1 mg IVPUSH Q2M PRN PRN Reason: Respiratory Rate < 10 Ondansetron HCl (Ondansetron Hcl 4 Mg/2 Ml Vial) 4 mg IVPUSH Q8H PRN PRN Reason: nausea/vomiting Pharmacy Consult (Consult Rx Vancomycin Dosing) 1 each MISCELLANE DAILY PRN PRN Reason: Consult order Pharmacy Consult (Consult Rx Perform Med Rec) 1 each MISCELLANE ONCE PRN PRN Reason: Consult order Senna (Sennosides 8.6 Mg Tablet) 17.2 mg PO BEDTIME PRN PRN Reason: Constipation Sodium Chloride (0.9 % Sodium Chloride Flush 3 Ml Syringe) 3 ml IVFLUSH QSHIFT [facility] Last Admin: 08/15/21 10:09 Dose: 3 ml Documented by: ALEISHA Labs CBC & Chem 7: 08/15/21 08:50 08/15/21 08:50 Labs: Laboratory Results - last 24 hr 08/13/21 08/15/21 08/15/21 08:06 08:50 08:50 MCV 90.5 MCH 29.3 MCHC 32.3 RDW 13.5 Plt Count 414 H MPV 8.6 L Absolute Nucleated RBC 0.000 Nucleated RBC % (auto) 0.0 Anion Gap 10 L Estim Creat Clear Calc 119.5 Estimated GFR > 60 Random Glucose 102 Calcium 8.7 D C-Reactive Protein 1.75 H Hep Bs Antigen Negative Hep Bs Antibody REACTIVE Hep B Core Total Ab Nonreactive Hepatitis C Ab (EIA) Nonreactive HIV 1&2 Ab/P24 Ag 4thGn Nonreactive Assessment and Plan (1) Cellulitis: Status: Acute Assessment and Plan: hospital d#5 35yo M with opioid use disorder admitted with L foot cellulitis # L foot cellulitis - cannot entirely exclude underlying septic arthritis or osteomyelitis around MTP joints; MRI pending - /2 BCx from 08/11 positive for coag-neg staph = contaminant - continue vancomycin- trough subtherapeutic so dose increased - oxycodone prn pain # opioid abuse disorder # cocaine abuse - was on Suboxone but stopped 2 wk ago; was actually sent in from detox center due to foot infection - prn clonidine - Addiction Medicine consulted and Suboxone was reinitiated, on 8/2 mg bid and will discuss dose increase - HCV/HIV negative, HBV immune # VTE ppx - LMWH # dispo - plan CSS - pt is homeless Quality Stroke Does the patient have a stroke diagnosis?: No VTE Prior VTE?: No VTE Risk Level:: Medical - moderate - high VTE Device Contraindication: Treatment Not Indicated VTE Drug Contraindication: N/A - Med Ordered
[2021-08-15 15:22] VITALS: BP 129/74; PULSE 84; RESP 17; TEMP 36.8; O2SAT 97
[2021-08-15 16:00] VITALS: PULSE 65
[2021-08-15] MEDS: Buprenorphine/Naloxone 4/1 mg FILM 1 FILM SUBLINGUAL (16:09)
--- NOTE | 2021-08-15 16:30 | PM.CNGS ---
History of Present Illness Consult details Consult date: 08/15/21 Narrative: 35-year-old male referred for left foot swelling. He was admitted on 08/11/2021 because of pain area of swelling on the left foot. He has a known history of IV drug abuse, and depression. He had been on antibiotics. He denies any trauma to the area. He is non diabetic. In view of this foot pain and swelling, he was referred to me. He does state that the area has improved since he was admitted. Review of Systems Constitutional: Constitutional: Denies chills and Denies fever(s) Cardiovascular: Cardiovascular: Denies chest pain, Denies dyspnea and Denies dyspnea on exertion Respiratory: Respiratory: Denies cough, Denies dyspnea and Denies dyspnea on exertion Gastrointestinal: Gastrointestinal: Denies hematochezia and Denies change in bowel habits Genitourinary: Genitourinary: Denies hematuria and Denies difficulty urinating Musculoskeletal: Musculoskeletal: Denies back pain and Denies limited range of motion Neurologic: Denies focal weakness and Denies convulsions Psychiatric: Psychiatric: Denies depression and Denies mood swings [facility] Past Medical History Medical History Addiction to drug Substance abuse Social History Social History Household Members: Other Housing: Homeless Do you presently have visiting nurse or other home services: No Unable to assess alcohol history related to: Unknown Alcohol intake: unknown Patient Tobacco Use Status: Current everyday Tobacco user Tobacco use type: Cigarette Cigarette Packs Per Day: 1 Cigarettes Per Day: 20.0 e-Cigarette/Vaping Use: Never Used Second Hand Smoke Exposure: Yes Use of substances other than those prescribed or required for medical reasons: Yes Substance Use Type: Crack/Cocaine and Heroin Last Used Substance: Days (ago) Last Used Substance Other:: Sunday Currently Displaying Signs/Symptoms of Drug Intoxication Withdrawal: No Any prior treatment program specific to substance use: Yes (was at [facility] today) Advance Directives: No Advance Directives Information Provided: Yes Do you have thoughts of harming others: None Do you have a plan to hurt others: No Plan Recently lost weight without trying: No Nutrition Risks: No Nutritional Risk Poor oral hygiene: Yes service: No Current occupational status: unemployed Sexual orientation: Did not discuss. Meds Allergies Allergy/AdvReac Type Severity Reaction Status Date / Time acetaminophen [From VICODIN] Allergy Unknown HIVES Verified 07/03/21 13:13 ITCHY THROAT From VICODIN Allergy Unknown HIVES Uncoded 07/29/20 18:08 ITCHY THROAT Active Medications: Current Medications Acetaminophen (Acetaminophen 325 Mg Tablet) 650 mg PO Q6H PRN PRN Reason: Pain, Mild (Pain Scale 1-3) Last Admin: 08/14/21 21:12 Dose: 650 mg Documented by: Buprenorphine/Naloxone (Buprenorphine/Naloxone 12/3 Mg Film) 1 film SUBLINGUAL DAILY [facility] Buprenorphine/Naloxone (Buprenorphine/Naloxone 8/2 Mg Film) 1 film SUBLINGUAL DAILY@2100 [facility] Clonidine HCl (Clonidine Hcl 0.1 Mg Tablet) 0.1 mg PO TID PRN; Protocol PRN Reason: anxiety/restlessness Last Admin: 08/15/21 10:09 Dose: 0.1 mg Documented by: Enoxaparin Sodium (Enoxaparin Sodium 40 Mg/0.4 Ml Syringe) 40 mg SUBCUT Q24H [facility] Last Admin: 08/15/21 10:09 Dose: Not Given Documented by: Vancomycin HCl 1,250 mg/ (Sodium Chloride) 250 mls @ 166.667 mls/hr IV Q12H [facility] Last Infusion: 08/15/21 11:39 Dose: Infused Documented by: Melatonin (Melatonin 3 Mg Tablet) 6 mg PO BEDTIME PRN PRN Reason: Insomnia Naloxone HCl (Naloxone Hcl 0.4 Mg/Ml Vial) 0.1 mg IVPUSH Q2M PRN PRN Reason: Respiratory Rate < 10 Ondansetron HCl (Ondansetron Hcl 4 Mg/2 Ml Vial) 4 mg IVPUSH Q8H PRN PRN Reason: nausea/vomiting Pharmacy Consult (Consult Rx Vancomycin Dosing) 1 each MISCELLANE DAILY PRN PRN Reason: Consult order Pharmacy Consult (Consult Rx Perform Med Rec) 1 each MISCELLANE ONCE PRN PRN Reason: Consult order Senna (Sennosides 8.6 Mg Tablet) 17.2 mg PO BEDTIME PRN PRN Reason: Constipation Sodium Chloride (0.9 % Sodium Chloride Flush 3 Ml Syringe) 3 ml IVFLUSH QSHIFT [facility] Last Admin: 08/15/21 16:10 Dose: 3 ml Documented by: Home Medications Medication Instructions Recorded Confirmed Last Taken Type buprenorphine 8 mg-naloxone 2 mg 3 strip SUBLINGUAL DAILY 07/12/21 08/11/21 08/11/21 History sublingual film (Suboxone) Physical Exam Vital Signs: Vital Signs: Last Vital Signs Temp 98.2 F 08/15/21 15:22 Pulse 84 08/15/21 15:22 Resp 17 08/15/21 15:22 BP 129/74 08/15/21 15:22 Pulse Ox 97 08/15/21 15:22 Body Mass Index 22.8 Const: General: comfortable and no acute distress Orientation/consciousness: patient oriented x3 Neck: Neck: Yes no lymphadenopathy Resp: Auscultation: clear to auscultation bilaterally Cardio: Rhythm: regular rhythm GI: Palpation (GI): Soft to palpation, nontender and no guarding Neuro: General: patient oriented x3 Extrem: Other: Left foot - vague but localized area of swelling, nonfluctuant, on the dorsum of the left foot, about 2 cm in diameter, not well-defined, scab overlying this of superficial skin, no significant induration, no discharge Results Labs Result diagrams: 08/15/21 08:50 08/15/21 08:50 Labs: Abnormal lab results 08/15/21 08/15/21 Range/Units 08:50 08:50 WBC 11.6 H (4.8-10.8) X10*3/uL RBC 3.69 L (4.60-5.80) X10*6/uL Hgb 10.8 L (14.0-18.0) g/dl Hct 33.4 L (42-52) % Plt Count 414 H (160-400) X10*3/uL MPV 8.6 L (9.4-12.4) fL Anion Gap 10 L (12-20) C-Reactive Protein 1.75 H (< or = 0.50) mg/dL Short CBC 08/15/21 Range/Units 08:50 WBC 11.6 H (4.8-10.8) X10*3/uL Hgb 10.8 L (14.0-18.0) g/dl Hct 33.4 L (42-52) % Plt Count 414 H (160-400) X10*3/uL BMP 08/15/21 08:50 Sodium 141 Potassium 3.4 Chloride 105 Carbon Dioxide 29 BUN 13 Creatinine 0.79 Calcium 8.7 D All other labs normal. Assessment and Plan (1) Cellulitis: Qualifiers: Laterality: left Site of cellulitis: extremity Site of cellulitis of extremity: lower extremity Qualified Code(s): L03.116 - Cellulitis of left lower limb Status: Acute 35-year-old male with note of a vague swelling on the dorsum of the left foot. He had an MRI showing a small fluid collection. The area does not seem to have any fluctuance at this time. I do not feel that he requires an I and D now. Furthermore, there has been significant improvement of his cellulitis. I did tell him that I will re-evaluate this tomorrow and decide whether we will do an I and D at bedside or not or consider aspiration of the area as well. He understands the plan. In the meantime we can continue with antibiotics. I have reviewed his MRI. Procedures Date of Service Date of Service: 08/15/21
--- NOTE | 2021-08-15 16:31 | P.PNADD_ITS ---
Subjective Subjective Date of Service: 08/15/21 Reason For Visit: cellulitis Medical Problems Affecting Mental Status: No Interim History: Patient reports that the Suboxone 8 mg-2 mg sublingual b.i.d. is helping, but that he is still experiencing some withdrawal symptoms. He reports that he was taking 16 mg -4 mg in the a.m. and 8 mg-2 mg at night. He is requesting increase at this time. He reported he is experiencing some pain. He states that he would much rather have an increase in his Suboxone, back toward his original dose that he takes as outpatient, rather than add any other opioid pain medications at this time. Medication Compliance: Yes Side effects from medications: No Review of Systems MRI completed today, he expressed anxiety regarding awaiting results when this mortgage or loan underwriter met with him. Medical Review of Systems: unchanged Mental Status Exam Mental Status Exam Narrative: Well-developed, well-nourished male. Slightly diaphoretic. No restless legs, no piloerection, no runny nose, no yawning noted. Patient Appearance: Well Grooomed, Fatigued and Appropriate Patient Orientation: Person, Place, Time and Situation Level of Consciousness: Awake, Appropriate and Alert Patient Behavior: Appropriate, Cooperative and Good Eye Contact Mood Description: Appropriate and Anxious Affect Description: Appropriate and Anxious Patient Cognition Impaired: No Ability to Follow Directions: Excellent Speech Pattern: Clear, Appropriate and Coherent Memory Description: Intact Hallucinations: None Delusions: Not Present Thought Process: Intact, Goal Oriented and Linear Thought Content: positive for Intact, positive for Goal Oriented and positive for Linear Judgement: Fair Diagnostics Vital Signs (24Hr): Vital Signs - 24 hr 08/14/21 23:48 08/15/21 07:33 08/15/21 11:23 Temperature 98 F 98.4 F 98.1 F Pulse Rate 73 69 76 Respiratory Rate 18 18 16 Blood Pressure 125/69 122/76 126/63 Pulse Oximetry 96 98 99 08/15/21 15:22 Temperature 98.2 F Pulse Rate 84 Respiratory Rate 17 Blood Pressure 129/74 Pulse Oximetry 97 Body Mass Index 22.8 Labs Results: 08/15/21 08:50 08/15/21 08:50 Labs: Laboratory Results - last 48 hr 08/13/21 08/14/21 08/15/21 08:06 09:26 08:50 WBC RBC Hgb Hct MCV MCH MCHC RDW Plt Count MPV Absolute Nucleated RBC Nucleated RBC % (auto) Sodium 141 Potassium 3.4 Chloride 105 Carbon Dioxide 29 Anion Gap 10 L BUN 13 Creatinine 0.81 0.79 Estim Creat Clear Calc 116.5 119.5 Estimated GFR > 60 > 60 Random Glucose 102 Calcium 8.7 D C-Reactive Protein 1.75 H Hep Bs Antigen Negative Hep Bs Antibody REACTIVE Hep B Core Total Ab Nonreactive Hepatitis C Ab (EIA) Nonreactive HIV 1&2 Ab/P24 Ag 4thGn Nonreactive 08/15/21 08:50 WBC 11.6 H RBC 3.69 L Hgb 10.8 L Hct 33.4 L MCV 90.5 MCH 29.3 MCHC 32.3 RDW 13.5 Plt Count 414 H MPV 8.6 L Absolute Nucleated RBC 0.000 Nucleated RBC % (auto) 0.0 Sodium Potassium Chloride Carbon Dioxide Anion Gap BUN Creatinine Estim Creat Clear Calc Estimated GFR Random Glucose Calcium C-Reactive Protein Hep Bs Antigen Hep Bs Antibody Hep B Core Total Ab Hepatitis C Ab (EIA) HIV 1&2 Ab/P24 Ag 4thGn Imaging Radiology Impressions: ITS Impressions Foot X-Ray 08/11/21 16:52 IMPRESSION: No acute bony finding left tib-fib, left foot. Tibia/Fibula X-Ray 08/11/21 16:52 IMPRESSION: No acute bony finding left tib-fib, left foot. Venous Duplex 08/11/21 16:52 IMPRESSION: No DVT demonstrated in the bilateral lower extremity. Groin nodes are noted. Correlation recommended clinically Foot MRI 08/15/21 12:34 IMPRESSION: 1. Peripherally enhancing T2 bright collection in the dorsal lateral subcutaneous tissues at the level of the mid/distal fifth metatarsal measuring 1.7 x 0.8 x 2.2 cm. Findings suspicious for an abscess. Of note, the plantar aspect of the collection abuts the fifth digit extensor tendon coursing through this region. 2. Dorsal soft tissue swelling and subcutaneous edema/cellulitis. 3. Findings in the mid to distal fifth metatarsal favors reactive edema, with early osteomyelitis not excluded. Follow-up MRI for reassessment as clinically warranted. The report will be called to the ordering clinician by a [place] Radiology Physician Funeral Prearrangement Counselor. Medications Medications Current Medications Acetaminophen (Acetaminophen 325 Mg Tablet) 650 mg PO Q6H PRN PRN Reason: Pain, Mild (Pain Scale 1-3) Last Admin: 08/14/21 21:12 Dose: 650 mg Documented by: Buprenorphine/Naloxone (Buprenorphine/Naloxone 12/3 Mg Film) 1 film SUBLINGUAL DAILY [facility] Buprenorphine/Naloxone (Buprenorphine/Naloxone 8/2 Mg Film) 1 film SUBLINGUAL DAILY@2100 [facility] Clonidine HCl (Clonidine Hcl 0.1 Mg Tablet) 0.1 mg PO TID PRN; Protocol PRN Reason: anxiety/restlessness Last Admin: 08/15/21 10:09 Dose: 0.1 mg Documented by: Enoxaparin Sodium (Enoxaparin Sodium 40 Mg/0.4 Ml Syringe) 40 mg SUBCUT Q24H [facility] Last Admin: 08/15/21 10:09 Dose: Not Given Documented by: Vancomycin HCl 1,250 mg/ (Sodium Chloride) 250 mls @ 166.667 mls/hr IV Q12H [facility] Last Infusion: 08/15/21 11:39 Dose: Infused Documented by: Melatonin (Melatonin 3 Mg Tablet) 6 mg PO BEDTIME PRN PRN Reason: Insomnia Naloxone HCl (Naloxone Hcl 0.4 Mg/Ml Vial) 0.1 mg IVPUSH Q2M PRN PRN Reason: Respiratory Rate < 10 Ondansetron HCl (Ondansetron Hcl 4 Mg/2 Ml Vial) 4 mg IVPUSH Q8H PRN PRN Reason: nausea/vomiting Pharmacy Consult (Consult Rx Vancomycin Dosing) 1 each MISCELLANE DAILY PRN PRN Reason: Consult order Pharmacy Consult (Consult Rx Perform Med Rec) 1 each MISCELLANE ONCE PRN PRN Reason: Consult order Senna (Sennosides 8.6 Mg Tablet) 17.2 mg PO BEDTIME PRN PRN Reason: Constipation Sodium Chloride (0.9 % Sodium Chloride Flush 3 Ml Syringe) 3 ml IVFLUSH QSHIFT [facility] Last Admin: 08/15/21 16:10 Dose: 3 ml Documented by: Allergies Allergies Allergy/AdvReac Type Severity Reaction Status Date / Time acetaminophen [From VICODIN] Allergy Unknown HIVES Verified 07/03/21 13:13 ITCHY THROAT From VICODIN Allergy Unknown HIVES Uncoded 07/29/20 18:08 ITCHY THROAT Assessment & Plan Assessment & Plan (1) Opioid use disorder, moderate, dependence: Status: Acute Code(s): F11.20 - Opioid dependence, uncomplicated Assessment and Plan: Met with patient this afternoon, lead programmer was also present. Patient reports he is still experiencing sweating related to not currently receiving his full Suboxone dose. He denies any other symptoms, states that he would much rather receive higher Suboxone dose then any other opioid pain medications while in hospital. (2) Cocaine use disorder, moderate, dependence: Status: Acute Code(s): F14.20 - Cocaine dependence, uncomplicated Assessment and Plan: Patient did not offer any complaints regarding cocaine use, appear to be focused on opioid use disorder at this time. He wishes to ensure proper treatment going forward. Assessment and Plan: RECOMMENDATIONS: 1. Add suboxone 4mg-1mg sl this afternoon as a one-time dose. 2. Increase suboxone dosing to 12mg-3mg sl tomorrow am, continue with 8mg-2mg sl in evenings. 3. Addiction nurse practitioner will follow up with patient tomorrow to further titrate dosing as needed. These recommendations were shared with Dr. Terese Bradford in person while on unit. Thank you. Greater than 50% of the session was spent on counseling and/or coordination of care Education Patient educated on: diagnosis, medication risk/benefits, substance abuse and therapeutic strategies Informed Consent: understands
[2021-08-15 21:06] LABS: Vancomycin Trough 11.7 mcg/mL (10.0-20.0)
[2021-08-16] VITALS: BP 132/73; PULSE 82; RESP 16; TEMP 36.6; O2SAT 100
[2021-08-16] MEDS: 0.9 % Sodium Chloride Flush 3 ML SYRINGE IVFLUSH ×3 (00:03→21:48)
[2021-08-16 07:33] VITALS: BP 128/76; PULSE 84; RESP 16; TEMP 37.5; O2SAT 97
[2021-08-16] MEDS: vancomycin HCL 1,250 MG in 0.9 % Sodium Chloride 250 ML 166.66 MG IV (09:46)
[2021-08-16 09:47] VITALS: BP 128/76; PULSE 84
[2021-08-16] MEDS: Buprenorphine/Naloxone 12/3 mg FILM 1 FILM SUBLINGUAL (09:47)
[2021-08-16] MEDS: cloNIDine HCL 0.1 MG TABLET PO ×2 (09:47→21:46)
--- NOTE | 2021-08-16 10:32 | P.PNIM_ITS ---
Subjective Subjective Date of Service: 08/16/21 Interval History: L foot still swollen + painful no fever Suboxone increased Review of Systems Review of Systems: Yes all other systems are reviewed and are negative Physical Exam Vital Signs: Vital Signs: Last Vital Signs Temp 99.5 F 08/16/21 07:33 Pulse 84 08/16/21 09:47 Resp 16 08/16/21 07:33 BP 128/76 08/16/21 09:47 Pulse Ox 97 08/16/21 07:33 Body Mass Index 22.8 Gen: in no acute distress HEENT: sclera anicteric, moist mucus membranes Neck: supple Lungs: clear to auscultation bilaterally Heart: regular rate and rhythm, no murmurs Abd: soft, non-tender, non-distended Ext: erythema of dorsum of L midfoot extending to lateral MTP joints improved, no fluctuance Skin: warm/well-perfused Neuro: alert and oriented x3, no focal findings Psych: restricted affect Objective Data Active Medications Acetaminophen (Acetaminophen 325 Mg Tablet) 650 mg PO Q6H PRN PRN Reason: Pain, Mild (Pain Scale 1-3) Last Admin: 08/14/21 21:12 Dose: 650 mg Documented by: GT Buprenorphine/Naloxone (Buprenorphine/Naloxone 12/3 Mg Film) 1 film SUBLINGUAL DAILY COUNTS INCLUDE 234 BEDS AT THE [facility] Last Admin: 08/16/21 09:47 Dose: 1 film Documented by: ZUNILDA Buprenorphine/Naloxone (Buprenorphine/Naloxone 8/2 Mg Film) 1 film SUBLINGUAL DAILY@2100 JULI Last Admin: 08/15/21 21:34 Dose: 1 film Documented by: BLAISE Clonidine HCl (Clonidine Hcl 0.1 Mg Tablet) 0.1 mg PO TID PRN; Protocol PRN Reason: anxiety/restlessness Last Admin: 08/16/21 09:47 Dose: 0.1 mg Documented by: ZUNILDA Enoxaparin Sodium (Enoxaparin Sodium 40 Mg/0.4 Ml Syringe) 40 mg SUBCUT Q24H COUNTS INCLUDE 234 BEDS AT THE [facility] Last Admin: 08/16/21 09:47 Dose: Not Given Documented by: ZUNILDA Non-Admin Reason: Patient Refused Vancomycin HCl 1,250 mg/ (Sodium Chloride) 250 mls @ 166.667 mls/hr IV Q12H COUNTS INCLUDE 234 BEDS AT THE [facility] Last Admin: 08/16/21 09:46 Dose: 166.66 mls/hr Documented by: ZUNILDA Melatonin (Melatonin 3 Mg Tablet) 6 mg PO BEDTIME PRN PRN Reason: Insomnia Naloxone HCl (Naloxone Hcl 0.4 Mg/Ml Vial) 0.1 mg IVPUSH Q2M PRN PRN Reason: Respiratory Rate < 10 Ondansetron HCl (Ondansetron Hcl 4 Mg/2 Ml Vial) 4 mg IVPUSH Q8H PRN PRN Reason: nausea/vomiting Pharmacy Consult (Consult Rx Vancomycin Dosing) 1 each MISCELLANE DAILY PRN PRN Reason: Consult order Pharmacy Consult (Consult Rx Perform Med Rec) 1 each MISCELLANE ONCE PRN PRN Reason: Consult order Senna (Sennosides 8.6 Mg Tablet) 17.2 mg PO BEDTIME PRN PRN Reason: Constipation Sodium Chloride (0.9 % Sodium Chloride Flush 3 Ml Syringe) 3 ml IVFLUSH QSHIFT JULI Last Admin: 08/16/21 09:47 Dose: 3 ml Documented by: ZUNILDA Labs CBC & Chem 7: 08/15/21 08:50 08/15/21 08:50 Labs: Laboratory Results - last 24 hr 08/15/21 20:32 Vancomycin Trough 11.7 Impressions Foot MRI 08/15/21 12:34 IMPRESSION: 1. Peripherally enhancing T2 bright collection in the dorsal lateral subcutaneous tissues at the level of the mid/distal fifth metatarsal measuring 1.7 x 0.8 x 2.2 cm. Findings suspicious for an abscess. Of note, the plantar aspect of the collection abuts the fifth digit extensor tendon coursing through this region. 2. Dorsal soft tissue swelling and subcutaneous edema/cellulitis. 3. Findings in the mid to distal fifth metatarsal favors reactive edema, with early osteomyelitis not excluded. Follow-up MRI for reassessment as clinically warranted. The report will be called to the ordering clinician by a [facility] [facility] Physician Riding Double. Assessment and Plan (1) Cellulitis: Status: Acute Assessment and Plan: hospital d#6 35yo M with opioid use disorder admitted with L foot cellulitis # L foot cellulitis with suspected abscess, question of early osteomyelitis versus reactive edema - not bacteremic - vancomycin d#6 - ID consult pending - Surg consult for possible I+D of abscess - oxycodone prn pain # opioid abuse disorder # cocaine abuse - was on Suboxone but stopped 2 wk ago; was actually sent in from detox center due to foot infection - prn clonidine - Addiction Medicine consulted and Suboxone was reinitiated, on 12/3 mg qam + 8/2 mg qpm now - HCV/HIV negative, HBV immune # VTE ppx - LMWH # dispo - plan [facility] - pt is homeless Quality Stroke Does the patient have a stroke diagnosis?: No VTE Prior VTE?: No VTE Risk Level:: Medical - moderate - high VTE Device Contraindication: Treatment Not Indicated VTE Drug Contraindication: N/A - Med Ordered
[2021-08-16] MEDS: Buprenorphine/Naloxone 4/1 mg FILM 1 FILM SUBLINGUAL (12:41)
--- NOTE | 2021-08-16 13:00 | MHC.RECOVRN ---
Pt to be medically cleared tomorrow and plan to d/c on PO abx. [facility] referrals sent. No N beds available. [facility] availability. Intake requesting updated med list be sent when pt no longer has IV medications ordered. Jessica Dougherty APRN, as well as provider, aware.
--- NOTE | 2021-08-16 13:13 | PM.PNGS ---
Subjective Subjective Date of Service: 08/16/21 Interval history: Says he has left foot feels much better Pain almost resolved He says the swelling has improved significantly Physical Exam Vital Signs: Vital Signs: Last Vital Signs Temp 99.5 F 08/16/21 07:33 Pulse 84 08/16/21 09:47 Resp 16 08/16/21 07:33 BP 128/76 08/16/21 09:47 Pulse Ox 97 08/16/21 07:33 Body Mass Index 22.8 Const: Other: Chemistry 08/14/21 08/15/21 09:26 08:50 Sodium 141 Potassium 3.4 Carbon Dioxide 29 BUN 13 Creatinine 0.81 0.79 Calcium 8.7 D Hematology 08/15/21 08:50 WBC 11.6 H Hgb 10.8 L Plt Count 414 H General: comfortable and no acute distress Resp: Effort & Inspection: normal respiratory effort Cardio: Rate: regular rate Extrem: Other: Left foot- the swelling on the dorsum has improved significantly. There is no evidence of any cellulitis. There is no fluctuance no induration Procedures Date of Service Date of Service: 08/16/21 Progress Note: A&P Assessment and plan (1) Cellulitis: Status: Acute Assessment and Plan: Cellulitis on the left foot has resolved Swelling has also improved significantly Patient is not tender No induration noted anymore Will hold off on I&D Continue antibiotics Fall Risk Details Current Medications: Current Medications Acetaminophen (Acetaminophen 325 Mg Tablet) 650 mg PO Q6H PRN PRN Reason: Pain, Mild (Pain Scale 1-3) Last Admin: 08/14/21 21:12 Dose: 650 mg Documented by: Buprenorphine/Naloxone (Buprenorphine/Naloxone 8/2 Mg Film) 1 film SUBLINGUAL DAILY@2100 JULI Last Admin: 08/15/21 21:34 Dose: 1 film Documented by: Buprenorphine/Naloxone (Buprenorphine/Naloxone 8/2 Mg Film) 2 film SUBLINGUAL DAILY JULI Clonidine HCl (Clonidine Hcl 0.1 Mg Tablet) 0.1 mg PO TID PRN; Protocol PRN Reason: anxiety/restlessness Last Admin: 08/16/21 09:47 Dose: 0.1 mg Documented by: Enoxaparin Sodium (Enoxaparin Sodium 40 Mg/0.4 Ml Syringe) 40 mg SUBCUT Q24H [facility] Last Admin: 08/16/21 09:47 Dose: Not Given Documented by: Vancomycin HCl 1,250 mg/ (Sodium Chloride) 250 mls @ 166.667 mls/hr IV Q12H [facility] Last Infusion: 08/16/21 12:02 Dose: Infused Documented by: Melatonin (Melatonin 3 Mg Tablet) 6 mg PO BEDTIME PRN PRN Reason: Insomnia Naloxone HCl (Naloxone Hcl 0.4 Mg/Ml Vial) 0.1 mg IVPUSH Q2M PRN PRN Reason: Respiratory Rate < 10 Ondansetron HCl (Ondansetron Hcl 4 Mg/2 Ml Vial) 4 mg IVPUSH Q8H PRN PRN Reason: nausea/vomiting Pharmacy Consult (Consult Rx Vancomycin Dosing) 1 each MISCELLANE DAILY PRN PRN Reason: Consult order Pharmacy Consult (Consult Rx Perform Med Rec) 1 each MISCELLANE ONCE PRN PRN Reason: Consult order Senna (Sennosides 8.6 Mg Tablet) 17.2 mg PO BEDTIME PRN PRN Reason: Constipation Sodium Chloride (0.9 % Sodium Chloride Flush 3 Ml Syringe) 3 ml IVFLUSH QSHIFT [facility] Last Admin: 08/16/21 09:47 Dose: 3 ml Documented by: Time Spent With Patient Time: Total time spent is greater than 50% in coordination of care (as documented) at patient's floor/unit and/or counseling patient: Time with patient: 15 - 24 minutes Quality Stroke Does the patient have a stroke diagnosis?: No VTE Prior VTE?: No VTE Risk Level:: Medical - moderate - high VTE Device Contraindication: Treatment Not Indicated VTE Drug Contraindication: N/A - Med Ordered
[2021-08-16 15:54] VITALS: BP 119/57; PULSE 65; RESP 18; TEMP 36.3; O2SAT 97
--- NOTE | 2021-08-16 19:35 | HO.ADDICTPRO ---
Subjective Subjective Date of Service: 08/16/21 Reason For Visit: cellulitis Interim History: Patient seen this morning with RS RN Suboxone AM dose was increased yesterday to 12mg and PM dose was kept at 8mg Patient reported that he was previously taking 16mg in AM and 8mg in the evenings (total of 24mg QD)--verified via [facility]. Requesting to increase back to that dose. Still experiencing pain with his foot, and mild withdrawal sx sych as body aches and rhinorrhea. Denies any other withdrawal sx. Discussed dispo and patient hoping to be discharged to [facility]. RSRN made several referrals and as able to secure placement at [facility] when patient is cleared for discharge Review of Systems Medical Review of Systems: unchanged Mental Status Exam Mental Status Exam Patient Appearance: Appropriate Patient Orientation: Person, Place, Time and Situation Level of Consciousness: Awake, Appropriate and Alert Patient Behavior: Appropriate Mood Description: Calm Affect Description: Calm Patient Cognition Impaired: No Speech Pattern: Clear Thought Process: Intact Thought Content: positive for Goal Oriented Judgement: Good Diagnostics Vital Signs (24Hr): Vital Signs - 24 hr 08/16/21 00:00 08/16/21 07:33 08/16/21 09:47 Temperature 97.8 F 99.5 F Pulse Rate 82 84 84 Respiratory Rate 16 16 Blood Pressure 132/73 128/76 128/76 Pulse Oximetry 100 97 08/16/21 15:54 Temperature 97.3 F Pulse Rate 65 Respiratory Rate 18 Blood Pressure 119/57 L Pulse Oximetry 97 Body Mass Index 22.8 Labs Results: 08/15/21 08:50 08/15/21 08:50 Labs: Laboratory Results - last 48 hr 08/13/21 08/15/21 08/15/21 08:06 08:50 08:50 WBC 11.6 H RBC 3.69 L Hgb 10.8 L Hct 33.4 L MCV 90.5 MCH 29.3 MCHC 32.3 RDW 13.5 Plt Count 414 H MPV 8.6 L Absolute Nucleated RBC 0.000 Nucleated RBC % (auto) 0.0 Sodium 141 Potassium 3.4 Chloride 105 Carbon Dioxide 29 Anion Gap 10 L BUN 13 Creatinine 0.79 Estim Creat Clear Calc 119.5 Estimated GFR > 60 Random Glucose 102 Calcium 8.7 D C-Reactive Protein 1.75 H Vancomycin Trough Hep Bs Antigen Negative Hep Bs Antibody REACTIVE Hep B Core Total Ab Nonreactive Hepatitis C Ab (EIA) Nonreactive HIV 1&2 Ab/P24 Ag 4thGn Nonreactive 08/15/21 20:32 WBC RBC Hgb Hct MCV MCH MCHC RDW Plt Count MPV Absolute Nucleated RBC Nucleated RBC % (auto) Sodium Potassium Chloride Carbon Dioxide Anion Gap BUN Creatinine Estim Creat Clear Calc Estimated GFR Random Glucose Calcium C-Reactive Protein Vancomycin Trough 11.7 Hep Bs Antigen Hep Bs Antibody Hep B Core Total Ab Hepatitis C Ab (EIA) HIV 1&2 Ab/P24 Ag 4thGn Imaging Radiology Impressions: ITS Impressions Foot X-Ray 08/11/21 16:52 IMPRESSION: No acute bony finding left tib-fib, left foot. Tibia/Fibula X-Ray 08/11/21 16:52 IMPRESSION: No acute bony finding left tib-fib, left foot. Venous Duplex 08/11/21 16:52 IMPRESSION: No DVT demonstrated in the bilateral lower extremity. Groin nodes are noted. Correlation recommended clinically Foot MRI 08/15/21 12:34 IMPRESSION: 1. Peripherally enhancing T2 bright collection in the dorsal lateral subcutaneous tissues at the level of the mid/distal fifth metatarsal measuring 1.7 x 0.8 x 2.2 cm. Findings suspicious for an abscess. Of note, the plantar aspect of the collection abuts the fifth digit extensor tendon coursing through this region. 2. Dorsal soft tissue swelling and subcutaneous edema/cellulitis. 3. Findings in the mid to distal fifth metatarsal favors reactive edema, with early osteomyelitis not excluded. Follow-up MRI for reassessment as clinically warranted. The report will be called to the ordering clinician by a [place] [facility] Physician Roll Icer. Medications Medications Current Medications Acetaminophen (Acetaminophen 325 Mg Tablet) 650 mg PO Q6H PRN PRN Reason: Pain, Mild (Pain Scale 1-3) Last Admin: 08/14/21 21:12 Dose: 650 mg Documented by: Buprenorphine/Naloxone (Buprenorphine/Naloxone 8/2 Mg Film) 1 film SUBLINGUAL DAILY@2100 JULI Last Admin: 08/15/21 21:34 Dose: 1 film Documented by: Buprenorphine/Naloxone (Buprenorphine/Naloxone 8/2 Mg Film) 2 film SUBLINGUAL DAILY JULI Clonidine HCl (Clonidine Hcl 0.1 Mg Tablet) 0.1 mg PO TID PRN; Protocol PRN Reason: anxiety/restlessness Last Admin: 08/16/21 09:47 Dose: 0.1 mg Documented by: Doxycycline Hyclate (Doxycycline Hyclate 100 Mg Tablet) 100 mg PO Q12H [facility] Last Admin: 08/16/21 16:25 Dose: 100 mg Documented by: Melatonin (Melatonin 3 Mg Tablet) 6 mg PO BEDTIME PRN PRN Reason: Insomnia Naloxone HCl (Naloxone Hcl 0.4 Mg/Ml Vial) 0.1 mg IVPUSH Q2M PRN PRN Reason: Respiratory Rate < 10 Senna (Sennosides 8.6 Mg Tablet) 17.2 mg PO BEDTIME PRN PRN Reason: Constipation Sodium Chloride (0.9 % Sodium Chloride Flush 3 Ml Syringe) 3 ml IVFLUSH QSHIFT [facility] Last Admin: 08/16/21 16:27 Dose: Not Given Documented by: Allergies Allergies Allergy/AdvReac Type Severity Reaction Status Date / Time acetaminophen [From VICODIN] Allergy Unknown HIVES Verified 07/03/21 13:13 ITCHY THROAT From VICODIN Allergy Unknown HIVES Uncoded 07/29/20 18:08 ITCHY THROAT Assessment & Plan Assessment & Plan (1) Opioid use disorder, moderate, dependence: Status: Acute Code(s): F11.20 - Opioid dependence, uncomplicated Assessment and Plan: additional 4mg given this AM for total of 16mg (and 16mg every AM moving forward) keep PM 8mg dose RSRN coordinating admission to [facility] with CM case discussed with covering provider this telegraphic typewriter operator will provide bridge rx at time of discharge 30 mins with patient and coordinating care Greater than 50% of the session was spent on counseling and/or coordination of care
[2021-08-16] MEDS: Buprenorphine/Naloxone 8/2 mg FILM 1 FILM SUBLINGUAL (21:45)
[2021-08-16 21:46] VITALS: BP 120/56; PULSE 65
[2021-08-16 23:41] VITALS: BP 134/76; PULSE 76; RESP 18; TEMP 37; O2SAT 98
[2021-08-17] VITALS: PULSE 76
[2021-08-17 07:25] VITALS: BP 119/64; PULSE 68; RESP 18; TEMP 36.4; O2SAT 99
[2021-08-17 08:37] LABS: Hematocrit 32.3 % (42-52); Hemoglobin 10.4 g/dl (14.0-18.0); Mean Corpuscular HGB Conc 32.2 g/dl (31.0-36.0); Mean Corpuscular Hemoglobin 28.9 pg (27.0-33.0); Mean Corpuscular Volume 89.7 fL (80-98); Mean Platelet Volume 8.6 fL (9.4-12.4); Platelet Count 410 X10*3/uL (160-400); Red Cell Distribution Width 13.8 % (11.0-16.0); White Blood Count 10.7 X10*3/uL (4.8-10.8)
[2021-08-17 08:52] LABS: Anion Gap 13 (12-20); Blood Urea Nitrogen 12 mg/dL (9-16); C Reactive Protein 5.13 mg/dL (< or = 0.50); Calcium 8.2 mg/dL (8.4-10.2); Carbon Dioxide 30 mmol/L (22-29); Chloride 101 mmol/L (96-108); Creatinine Clr Calc Pharmacy 119.5; Estimated Glomerular Filt Rate > 60; Glucose Random 142 mg/dL (60-115); Potassium 3.8 mmol/L (3.3-5.1); Sodium 140 mmol/L (135-145)
[2021-08-17 09:17] LABS: Erythrocyte Sedimentation Rate 53 MM/HR (0-15)
[2021-08-17] MEDS: Buprenorphine/Naloxone 8/2 mg FILM 2 FILM SUBLINGUAL (09:46)
[2021-08-17] MEDS: cloNIDine HCL 0.1 MG TABLET PO (09:48)
--- NOTE | 2021-08-17 10:48 | PM.DS ---
DS: Providers Provider Date of Service: 08/17/21 Date of admission: 08/11/21 20:02 Date of discharge: 08/17/21 Primary care physician: Unknown Physician Consults: 08/11/21 20:06 Addiction Medicine Routine Consulting Provider: Jessica Dougherty Reason for consultation: PSA; opiate/cocaine abuse 08/12/21 09:22 Consult to Care Team Routine Comment: Reason for consultation: cocaine + fentanyl 08/14/21 08:09 Consult to Care Team Stat Comment: Reason for consultation: requests inpt drug rehab 08/15/21 07:40 Consult to Care Team Stat Comment: Reason for consultation: d/c to [facility] medically CLEARED 08/15/21 15:03 Consult to General Surgery Routine Consulting Provider: [facility] General Surgeons Reason for consultation: DM foot infection ?early osteo ?Abscess Consult to Infectious Diseases Routine Consulting Provider: Niyah Walker Reason for consultation: DM foot infection ?early osteo ?Abscess DS: Diagnosis Discharge Diagnosis (1) Opioid use disorder, moderate, dependence: Status: Acute (2) Cellulitis and abscess of toe of left foot: Status: Acute (3) Tobacco abuse: Status: Acute (4) Substance induced mood disorder: Status: Acute (5) Cocaine use disorder, moderate, dependence: Status: Acute DS: Summary Hospital Course Hospital Course: from admission H+P by hospitalist Carlos Ramires, 08/11/21: 35-year-old male with the past medical history depression, opiate abuse, cocaine abuse, tobacco dependence chief complaint of left foot pain redness and swelling. Patient reports that he has been having left foot pain and swelling for the past 1 week.? Which has been gradually worsening. Patient reports his snorts cocaine and heroin on a regular basis.? He went to to the detox facility today was told to go to the hospital for further evaluation of his left foot. Patient denies any chest pain palpitations lightheadedness or dizziness review chills cough. Denies any GI or symptoms. Patient reported that he was on Suboxone and was not taking it for a week or 2; went to the detox facility today who told him to go to the hospital given his left foot findings. Review of all other systems is negative except mentioned above ER course: Per ER team patient's left lower extremity venous duplex showed no evidence of blood clot; x-ray showed no evidence of osteomyelitis; no fluctuance noted; findings concerning for cellulitis; given vancomycin.? Admitted to the hospital for further management. This 35yo M with opioid use disorder was admitted with L foot cellulitis. MRI demonstrated abscess and question of early osteomyelitis but more likely reactive edema. He was not bacteremic. Surgery was consulted but given improvement in the infection, I+D was not needed. He was treated with IV vancomycin for 7 days and will be discharged on 7 days with doxycycline. He was restarted on Suboxone in consultation with Addiction Medicine. He was counseled to avoid cocaine. He was discharged to a [facility] program for drug rehabilitation. He should establish a primary care doctor as soon as possible. Time Spent with Patient Time attestation: Total time spent providing and/or coordinating discharge services: Discharge coordination time: Greater than 30 minutes Quality: Stroke Does the patient have a stroke diagnosis?: No Physical Exam Vital Signs: Vital Signs: Last Vital Signs Temp 97.6 F 08/17/21 07:25 Pulse 68 08/17/21 07:25 Resp 18 08/17/21 07:25 BP 119/64 08/17/21 07:25 Pulse Ox 99 08/17/21 07:25 Body Mass Index 22.8 Gen: in no acute distress HEENT: sclera anicteric, moist mucus membranes Neck: supple Lungs: clear to auscultation bilaterally Heart: regular rate and rhythm, no murmurs Abd: soft, non-tender, non-distended Ext: induration of dorsum of L midfoot extending to lateral MTP joints improved, no fluctuance Skin: warm/well-perfused Neuro: alert and oriented x3, no focal findings Psych: restricted affect DS: Data Data Completed and Pending Completed studies during hospitalization [Text1]: Laboratory Results WBC 10.7 X10*3/uL (4.8-10.8) 08/17/21 08:27 RBC 3.60 X10*6/uL (4.60-5.80) L 08/17/21 08:27 Hgb 10.4 g/dl (14.0-18.0) L 08/17/21 08:27 Hct 32.3 % (42-52) L 08/17/21 08:27 MCV 89.7 fL (80-98) 08/17/21 08:27 MCH 28.9 pg (27.0-33.0) 08/17/21 08:27 MCHC 32.2 g/dl (31.0-36.0) 08/17/21 08:27 RDW 13.8 % (11.0-16.0) 08/17/21 08:27 Plt Count 410 X10*3/uL (160-400) H 08/17/21 08:27 MPV 8.6 fL (9.4-12.4) L 08/17/21 08:27 Immature Gran % (Auto) 0.3 % (0.0-0.4) 08/12/21 09: Neut % (Auto) 78.3 % (45-73) H 08/12/21 09:31 Lymph % (Auto) 13.7 % (20-40) L 08/12/21 09:31 [place] % (Auto) 6.6 % (2-11) 08/12/21 09:31 Eos % (Auto) 0.9 % (0-4) 08/12/21 09:31 Baso % (Auto) 0.2 % (0-2) 08/12/21 09:31 Lymph # (Auto) 1.2 X10*3/uL (1.2-4.9) 08/12/21 09:31 [place] # (Auto) 0.6 X10*3/uL (0.1-1.2) 08/12/21 09:31 Eos # (Auto) 0.1 X10*3/uL (0.0-0.4) 08/12/21 09:31 Baso # (Auto) 0.0 X10*3/uL (0.0-0.2) 08/12/21 09:31 Abs Immat Gran (auto) 0.03 X10*3/uL (0.00-0.03) 08/12/21 09:31 Absolute Neuts (auto) 7.1 X10*3/uL (2.0-8.3) 08/12/21 09:31 Absolute Nucleated RBC 0.000 X10*3/uL (0.0-0.012) 08/17/21 08:27 Nucleated RBC % (auto) 0.0 /100WBC (0.0-0.2) 08/17/21 08:27 ESR 53 MM/HR (0-15) H 08/17/21 08:27 Sodium 140 mmol/L (135-145) 08/17/21 08:27 Potassium 3.8 mmol/L (3.3-5.1) 08/17/21 08:27 Chloride 101 mmol/L (96-108) 08/17/21 08:27 Carbon Dioxide 30 mmol/L (22-29) H 08/17/21 08:27 Anion Gap 13 (12-20) 08/17/21 08:27 BUN 12 mg/dL (9-16) 08/17/21 08:27 Creatinine 0.79 mg/dL (0.5-1.4) 08/17/21 08:27 Estim Creat Clear Calc 119.5 08/17/21 08:27 Estimated GFR > 60 08/17/21 08:27 Random Glucose 142 mg/dL (60-115) H D 08/17/21 08:27 Estimat Average Glucose 103 mg/dL 08/12/21 09:32 Hemoglobin A1c % 5.2 % 08/12/21 09:32 Lactic Acid 1.0 mmol/L (0.5-2.0) 08/11/21 17:40 Calcium 8.2 mg/dL (8.4-10.2) L 08/17/21 08:27 Total Bilirubin 0.2 mg/dL (0.0-1.0) 08/11/21 17:40 AST 19 U/L (5-37) 08/11/21 17:40 ALT 24 U/L (0-40) 08/11/21 17:40 Alkaline Phosphatase 90 U/L (39-117) 08/11/21 17:40 C-Reactive Protein 5.13 mg/dL (< or = 0.50) H 08/17/21 08:27 B-Natriuretic Peptide 83 pg/mL (<100) 08/11/21 17:40 Total Protein 6.6 g/dL (6.5-8.0) 08/11/21 17:40 Albumin 3.4 g/dL (3.5-5.0) L 08/11/21 17:40 Vancomycin Trough 11.7 mcg/mL (10.0-20.0) 08/15/21 20:32 COVID-19 ([place]) Negative (Negative) 08/11/21 23:11 COVID-19 Clin Com See Note 08/11/21 23:11 Hep Bs Antigen Negative (Negative) 08/13/21 08:06 Hep Bs Antibody REACTIVE (Nonreactive) 08/13/21 08:06 Hep B Core Total Ab Nonreactive (Nonreactive) 08/13/21 08:06 Hepatitis C Ab (EIA) Nonreactive (Nonreactive) 08/13/21 08:06 HIV 1&2 Ab/P24 Ag 4thGn Nonreactive (Nonreactive) 08/13/21 08:06 Impressions Foot X-Ray 08/11/21 16:52 IMPRESSION: No acute bony finding left tib-fib, left foot. Tibia/Fibula X-Ray 08/11/21 16:52 IMPRESSION: No acute bony finding left tib-fib, left foot. Venous Duplex 08/11/21 16:52 IMPRESSION: No DVT demonstrated in the bilateral lower extremity. Groin nodes are noted. Correlation recommended clinically Foot MRI 08/15/21 12:34 IMPRESSION: 1. Peripherally enhancing T2 bright collection in the dorsal lateral subcutaneous tissues at the level of the mid/distal fifth metatarsal measuring 1.7 x 0.8 x 2.2 cm. Findings suspicious for an abscess. Of note, the plantar aspect of the collection abuts the fifth digit extensor tendon coursing through this region. 2. Dorsal soft tissue swelling and subcutaneous edema/cellulitis. 3. Findings in the mid to distal fifth metatarsal favors reactive edema, with early osteomyelitis not excluded. Follow-up MRI for reassessment as clinically warranted. The report will be called to the ordering clinician by a [place] [facility] Physician Canine Enforcement Officer. Discharge Plan Discharge Patient Disposition: Xfer Other Discharge Diagnosis: cellulitis and abscess of left foot, opioid use disorder, tobacco abuse Referrals: [facility] [place] Primary CareLauren [Provider Group] - 1 Week Jessica Dougherty CNP [Nurse Practitioner] - 1 Week Physician,Kingsley J [Primary Care Provider] - 1 Week Discharge Medications: New clonidine HCl 0.1 mg Tablet 0.1 mg PO TID PRN (Reason: Anxiety/Restlessness) Qty: 10 RF: 0 doxycycline hyclate 100 mg Tablet 100 mg PO Q12H Qty: 14 RF: 0 nicotine (polacrilex) 2 mg gum 2 mg buccal Q1H Qty: 100 RF: 0 Continued buprenorphine-naloxone [Suboxone] 8-2 mg film 3 strip sublingual DAILY RF: 0 Discharge Orders: Discharge Order (Routine); Ordered 08/17/21 Ordered By: Terese Bradford Diet: advance to usual diet Activity on Discharge: As tolerated Stand Alone Forms: Patient Portal Discharge page Care Plan Goals: cure of infection avoid drug use Health Concerns: cellulitis of foot opioid use disorder Plan of Treatment: take doxycycline 100 mg twice daily for 7 more days take Suboxone as prescribed quit smoking; use nicotine gum to quit establish primary care doctor once discharged from [facility] Assessment: See Discharge Summary Patient Instructions: Buprenorphine/Naloxone (Into the mouth), Cellulitis (ED)
--- NOTE | 2021-08-17 11:17 | MHC.CM.PN ---
PATIENT IS CLEARED FOR DISCHARGE. HE WILL DC WITH RX FOR PO ABX.
--- NOTE | 2021-08-17 11:27 | MHC.RECOVRN ---
Pt has telehealth f/u appt with the [facility] on 08/25/21 at 2:15PM. CM aware.
--- NOTE | 2021-08-17 16:00 | MHC.RECOVRN ---
Pt accepted to [facility], [address] [place] [address] in [place]. Pt future oriented, looking forward to this next step. Pt has medications in hand, sister to transport. Pt encouraged to reach out to t/w if any issues/questions/concerns arise. Pt agreeable.
== END 2021-08-17 15:50 | disposition other institution (70) | DRG 383 ==
LOC: HO.ED 16:47 → HO.EDOVER 20:26 → HO.IMC 08-12 07:19 → HO.EDOVER 08-13 09:34 → HO.IMC 08-13 09:34 → HO.S3 08-13 19:48
PROVIDERS: Physician Assistant; Admitting Provider Hospitalist; Emergency Provider Internal Medicine; Visit Provider Family Medicine
DX: L02.612 Cutaneous abscess of left foot (principal); F11.20 Opioid dependence, uncomplicated; L03.116 Cellulitis of left lower limb; M86.9 Osteomyelitis, unspecified; F14.20 Cocaine dependence, uncomplicated; F17.210 Nicotine dependence, cigarettes, uncomplicated; F32.9 Major depressive disorder, single episode, unspecified; Z71.6 Tobacco abuse counseling; Z20.822 Contact with and (suspected) exposure to COVID-19; Z88.5 Allergy status to narcotic agent; Z88.6 Allergy status to analgesic agent; Z79.899 Other long term (current) drug therapy
CPT/HCPCS: 36415; 73590; 73620; 73720; 80048; 80053; 80202; 82565; 83036; 83605; 83880; 85025; 85027; 85652; 86140; 86704; 86706; 86803; 87040; 87147; 87205; 87340; 87389; 87635; 93970; 96365; 99285; A9585; J2543; J3370

== ENCOUNTER 2021-08-22 21:42 | Emergency (ER) | payer MEDICAID, SELFPAY ==
[2021-08-22 21:54] VITALS: PULSE 112; O2SAT 100
[2021-08-22 22:13] VITALS: BP 97/39; PULSE 70; RESP 14; TEMP 36.8; O2SAT 96; BMI 25.0
[2021-08-22 22:52] LABS: COVID-19 Test Negative (Negative); IDNOW Serial# 55D5AD1C
--- NOTE | 2021-08-23 01:04 | ED_ITS ---
HPI - General Adult General Chief complaint: ETOH/Substance Use Stated complaint: Detoxing Time Seen by Provider: 08/23/21 00:59 Source: patient Mode of arrival: EMS Limitations: no limitations History of Present Illness HPI narrative: 35-year-old male who presents emergency department for evaluation opiate use disorder. The patient initially told the nursing staff that he was withdrawing form opiates and had not used in 9 days however he then changed his story and stated that he snorted fentanyl and cocaine prior to coming to the emergency department. The triage note states that the patient was found altered outside of the [place]. According to the triage note, the patient was given a choice by the police to either go to correction or to go to the hospital to seek treatment for his opiate use disorder. At the time of my evaluation, the patient has no complaints. He states he just wants to sleep. Related Data Home Medications Medication Instructions Recorded Confirmed buprenorphine 8 mg-naloxone 2 mg 3 strip SUBLINGUAL DAILY 07/12/21 08/11/21 sublingual film (Suboxone) Previous Rx's Medication Instructions Recorded buprenorphine 8 mg-naloxone 2 mg 3 film SUBLINGUAL DAILY #42 ea 08/17/21 sublingual film (Suboxone) clonidine HCl 0.1 mg tablet 0.1 mg PO TID PRN #10 tab 08/17/21 doxycycline hyclate 100 mg tablet 100 mg PO Q12H #14 tab 08/17/21 nicotine (polacrilex) 2 mg gum 2 mg BUCCAL Q1H #100 ea 08/17/21 Allergies Allergy/AdvReac Type Severity Reaction Status Date / Time acetaminophen [From VICODIN] Allergy Unknown HIVES Verified 07/03/21 13:13 ITCHY THROAT From VICODIN Allergy Unknown HIVES Uncoded 07/29/20 18:08 ITCHY THROAT Review of Systems Review of Systems: Yes all other systems are reviewed and are negative PMFSH Past Medical History Medical History Addiction to drug Substance abuse Social History Social History Household Members: Other Housing: Homeless Do you presently have visiting nurse or other home services: No Unable to assess alcohol history related to: Unknown Alcohol intake: unknown Patient Tobacco Use Status: Current everyday Tobacco user Tobacco use type: Cigarette Cigarette Packs Per Day: 1 Cigarettes Per Day: 20.0 e-Cigarette/Vaping Use: Never Used Second Hand Smoke Exposure: Yes Use of substances other than those prescribed or required for medical reasons: Yes Substance Use Type: Heroin and Other Substance Use Type Other:: Fentanyl Substance Use Frequency: Chronic Longstanding Last Used Substance: Hours (ago) Any prior treatment program specific to substance use: No Advance Directives: No Advance Directives Information Provided: No service: No Current occupational status: unemployed Sexual orientation: Did not discuss. Physical Exam Vital Signs: Vital Signs: Last Vital Signs Temp 97.0 F 08/23/21 02:00 Pulse 78 08/23/21 06:00 Resp 14 08/23/21 06:00 BP 140/66 H 08/23/21 06:00 Pulse Ox 97 08/23/21 06:00 Body Mass Index 25.0 Const: Other: Somnolent but arousable male patient Orientation/consciousness: oriented to person and oriented to place HENMT: Head: Yes normal to inspection, Yes normocephalic and Yes atraumatic Ears: external ears normal General nose exam: Normal external nose present Face and sinus: Yes normal facial exam Mouth: Normal oral and palatal mucosa present Throat: Yes posterior oropharynx normal Eyes: General: appearance normal, both eyes and all related structures Pupils: Pinpoint pupils EOM: EOMs intact bilaterally Neck: Neck: Yes normal visual inspection, Yes no lymphadenopathy, Yes trachea midline and Yes supple Chest: Chest palpation & inspection: normal inspection of the chest and normal palpation of entire chest wall Resp: Effort & Inspection: normal respiratory effort and able to speak in complete sentences Auscultation: clear to auscultation bilaterally Cardio: Rate: regular rate Rhythm: regular rhythm Heart sounds: S1 normal heart sound present, S2 normal heart sound present and no murmurs GI: Inspection: Yes normal to inspection Palpation (GI): Soft to palpation, nontender and no guarding Auscultation: normal bowel sounds : General: Yes no CVA tenderness Back/Spine/Pelvis: Back: no CVA tenderness Skin: General skin exam: no rashes or lesions noted Neuro: General: oriented to person and oriented to place Cranial nerves: Yes CN's II-XII intact bilaterally Cognition (Neuro): normal cognition Motor exam (neuro): 5/5 motor strength present throughout Extrem: General: Yes normal to inspection Psych: Appearance: grossly normal Speech and movement: Normal speech and movement present Attitude: cooperative Course Course Course Narrative: 35-year-old male with a history of polysubstance abuse who presents emergency department for evaluation of altered mental status after snorting cocaine and heroin. The patient has been seen here multiple times in the past with similar presentations. At this time, the patient does not want any blood work done. The patient is somnolent and he will be monitored here in the emergency department until he is awake and alert. At that time I will offer him counseling for possible opiate treatment. 0738: The patient's COVID-19 test was negative. The patient slept throughout the night with no complaints. I woke the patient up to discharge him and he states that ?I am dope sick ?. The patient is requesting to talk to 1 of our assistant basketball coach is for treatment for his opiate addiction. Patient will be kept in the emergency department to the can be evaluated by our assistant basketball coach or by the care team. At the end of my shift, the patient's care was turned over to my colleague, Dr. Maria Del Rosario Orozco. Medical Decision Making Lab Data Labs: Lab Results 08/22/21 Range/Units 22:22 COVID-19 ([facility]) Negative (Negative) COVID-19 Clin Com See Note Discharge Plan Discharge Patient Disposition: Home, Self-Care Prescriptions: No Action buprenorphine-naloxone [Suboxone] 8-2 mg film 3 strip sublingual DAILY RF: 0 clonidine HCl 0.1 mg Tablet 0.1 mg PO TID PRN (Reason: Anxiety/Restlessness) Qty: 10 RF: 0 doxycycline hyclate 100 mg Tablet 100 mg PO Q12H Qty: 14 RF: 0 nicotine (polacrilex) 2 mg gum 2 mg buccal Q1H Qty: 100 RF: 0 buprenorphine-naloxone [Suboxone] 8-2 mg film 3 film sublingual DAILY Qty: 42 RF: 0 Interventions: ED Discharge Assessment Last Done: 08/23/21 05:05
[2021-08-23 02:00] VITALS: BP 109/66; PULSE 66; RESP 16; TEMP 36.1; O2SAT 99
[2021-08-23 04:00] VITALS: RESP 15
[2021-08-23 06:00] VITALS: BP 140/66; PULSE 78; RESP 14; O2SAT 97
--- NOTE | 2021-08-23 11:30 | MHC.RECOVSUP ---
? Reason for consult:Continuity of care o Current location:[address] [place] [address] o Identified substance use concern: Heroin/ Fentynl - Withdrawal - Seeking ATS (detox) - Support ? Intervention: o ATS bed search started/completed/in process o MAT started or to be started o Community resources provided o Harm reduction discussion ? Plan: o Referral to [facility] o Bed search in progress to o Patient to follow up with [facility] after discharge ? Additional information: Patient seeking detox, there is no bed availability. Pt. has a telehealth appt, with MAT on the . Pt. was reminded of that.
[2021-08-23] MEDS: Buprenorphine/Naloxone 8/2 mg FILM 1 FILM SUBLINGUAL (12:24)
== END 2021-08-23 12:58 | disposition home or self-care (01) ==
PROVIDERS: Emergency Provider Emergency Medicine Emergency Medical Services
DX: F11.19 Opioid abuse with unspecified opioid-induced disorder (principal); F14.10 Cocaine abuse, uncomplicated; F17.210 Nicotine dependence, cigarettes, uncomplicated; Z20.822 Contact with and (suspected) exposure to COVID-19; Z71.6 Tobacco abuse counseling; Z71.51 Drug abuse counseling and surveillance of drug abuser; Z79.899 Other long term (current) drug therapy
CPT/HCPCS: 36415; 87635; 99284; 99285